=== PATIENT | female | born 1960 | race Caucasian/White ===

== ENCOUNTER 2017-10-28 23:46 | Observation (INO) | payer OTHER ==
--- OUTSIDE RECORDS SUMMARY | 2017-10-28 23:47 | XMS REPORT | Clinical Summary ---
:1960 Author Organization [facility] Address [address] [place] [address] Care Team Providers Name Role Phone Saritha Daniel ACADEMIC ADVISEMENT DIRECTOR-C Primary Care Provider Allergies Active Allergy Reactions Severity Noted Date Comments Codeine 12/15/2016 Current Medications Prescription Sig. Disp. Refills Start Date End Date Status alendronate (FOSAMAX) TAKE ONE (1) TABLET(S) 2 11/18/2016 Active 35 MG tablet BY MOUTH ONCE WEEKLY. ADVAIR DISKUS 100-50 as needed. 2 11/18/2016 Active mcg/dose DISKUS carisoprodol (SOMA) TAKE ONE (1) TABLET(S) 1 11/20/2016 Active 350 MG tablet BY MOUTH TWICE A DAY NEEDED. OSPHENA 60 mg tablet TAKE ONE (1) TABLET(S) 0 11/01/2016 Active BY MOUTH ONCE A DAY WITH FOOD. rosuvastatin (CRESTOR) TAKE ONE (1) TABLET(S) 3 11/07/2016 Active 10 MG tablet BY MOUTH ONCE A DAY AT BEDTIME. traMADol (ULTRAM) 50 TAKE ONE (1) TABLET(S) 1 11/20/2016 Active mg tablet BY MOUTH 3 TO 4 TIMES A DAY NEEDED. zolpidem (AMBIEN) 10 TAKE ONE (1) TABLET(S) 2 11/27/2016 Active mg tablet BY MOUTH ONCE A DAY. doxepin (ZONALON) 5 % 3 09/20/2016 Active cream ZOSTAVAX, PF, 19,400 RECONSTITUTE AND 0 11/08/2016 Active unit/0.65 mL injection ADMINISTER 0.65ML Active Problems Problem Noted Date Spinal muscular atrophy 02/05/2017 Encounters Date Type Specialty Care Team Description 05/28/2017 Telephone Neurology Yaneth Ontiveros MD 04/25/2017 Telephone Neurology Yaneth Ontiveros MD 04/25/2017 Telephone Neurology Yaneth Ontiveros MD 04/24/2017 Telephone Neurology Yaneth Ontiveros MD 04/20/2017 Telephone Neurology Tyree Holder MD 04/19/2017 Prep for Surgery Neurology Tyree Holder MD 04/17/2017 Orders Only Neurology Tyree Holder MD 04/09/2017 Orders Only Neurology Tyree Holder MD 01/15/2017 Telephone Neurology Kat Brown RN 01/15/2017 Telephone Neurology Kat Brown RN 01/15/2017 Orders Only Neurology Kat Brown, LM SMA (spinal muscular atrophy) (Primary Dx) 12/29/2016 Telephone Neurology Yaneth Ontiveros MD 12/15/2016 Lab Lab Yaneth Ontiveros MD 12/15/2016 Office Visit Neurology Yaneth Ontiveros, SMA (spinal muscular MD atrophy) (Primary Dx) after 10/27/2016 Family History Medical History Relation Name Comments Hyperlipidemia Father Hypertension Father Hypertension Mother Relation Name Status Comments Father Mother Social History Tobacco Use Types Packs/Day Years Used Date Never Smoker Smokeless Tobacco: Never Used Alcohol Use Drinks/Week oz/Week Comments No Sex Assigned at Date Recorded Not on file Last Filed Vital Signs Vital Sign Reading Time Taken Blood Pressure 120/78 12/15/2016 3:12 PM CDT Pulse 85 12/15/2016 3:12 PM CDT Temperature - - Respiratory Rate - - Oxygen Saturation - - Inhaled Oxygen Concentration - - Weight 69.6 kg (153 lb 6.4 oz) 12/15/2016 3:12 PM CDT Height 167.6 cm (5' 6") 12/15/2016 3:12 PM CDT Body Mass Index 24.76 12/15/2016 3:12 PM CDT Plan of Treatment Health Maintenance Due Date Last Done Comments PAP SMEAR 1981 COLONOSCOPY 2010 MAMMOGRAM 2010 INFLUENZA VACCINE 02/20/2018 Results Miscellaneous referral test (12/15/2016 4:45 PM) Component Value Ref Range Misc test name GRECIA SMA DIAGNOSTICS TEST Misc test result see note Comment: SMA Diagnostic Test Interpretation:Positive 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 This test result is consistent with a diagnosis of, or a predisposition to develop, spinal muscular atrophy associated with SMN1. Recommendations: This individual's family members are at risk for possessing or inheriting these mutations. Careful reconciliation of this molecular data with this individual's clinical presentation, family history, and other laboratory results, in conjunction with genetic counseling, is highly recommended. Performing site: [facility] [address] [place] [id number] Specimen Performing Laboratory [facility] [email or web address]] LABORATORY [address] [place] [id number] after 10/27/2016 Insurance Payer Benefit Plan / Group Subscriber ID Type Phone Address [facility] xxxxxxxxxxx Commercial MEDICARE MEDICARE PART A AND B xxxxxxxxxx Medicare [place], [place] FOR LIFE xxxxxxxxx Home: [phone] [address] AMENA REA [employer] Party Self 1960 Home: [address] [phone] [address]
[2017-10-29 00:51] LABS: Protime INR 1.01
[2017-10-29 00:55] LABS: Absolute Lymphocytes (CBC) 2.9 K/uL (0.7-4.9); Absolute Monocytes 0.5 K/uL (0.1-1.3); Absolute Neutrophil 4.2 K/uL (1.8-8.0); Basophils % 0.6 % (0-1.3); Hematocrit 38.5 % (36.0-45.0); MCH 31.2 pg (27.0-35.0); MPV 8.2 fL (7.6-11.3)
[2017-10-29 01:04] LABS: Bicarbonate 26 mEq/L (21-31); Glucose Level 103 mg/dL (65-120); Potassium 3.3 mEq/L (3.6-5.0); Sodium Level 139 mEq/L (135-145)
[2017-10-29 01:10] LABS: ALT/SGPT 20 IU/L (10-60); AST/SGOT 20 IU/L (10-42); Albumin 4.1 g/dL (3.2-5.5); Alkaline Phosphatase 76 IU/L (42-121); BUN Blood Urea Nitrogen 13 mg/dL (6-20); Bilirubin Direct 0.1 mg/dL (0-0.2); Bilirubin Total 0.5 mg/dL (0.3-1.2); Creatine Phosphokinase 84 IU/L (22-269); Magnesium 1.9 mg/dL (1.8-2.5)
[2017-10-29 01:25] LABS: CKMB Creatine Kinase MB 2.3 ng/ml (0.3-4.0)
--- NOTE | 2017-10-29 02:01 | EDPHYS ---
Physician Documentation [facility] Name: Amena Smalls Age: 57 yrs Sex: Female : 1960 Arrival Date: 10/28/2017 Time: 23:48 Bed 7 Private MD: ED Physician Sukhjinder Doll HPI: 10/29 00:05 This 57 yrs old Female presents to ER via EMS with complaints of Chest Pain. tw4 00:05 The patient or guardian reports chest pain that is located primarily in the anterior tw4 chest wall. Onset: just prior to arrival. The pain does not radiate. Associated signs and symptoms: The patient has no apparent associated signs or symptoms. The chest pain is described as dull. Duration: The patient or guardian reports a single episode. Severity of pain: At its worst the pain was moderate in the emergency department the pain is unchanged. Historical: - Allergies: 10/28 23:58 Codeine; fc 23:58 Levaquin; fc 23:58 Ibuprofen; fc - Home Meds: 23:58 Advair Diskus 100-50 mcg/dose Inhl dsdv 1 puff 2 times per day [Active]; calcium fc carbonate 500 mg calcium (1,250 mg) Oral tab [Active]; Crestor 10 mg Oral tab 1 tab once daily [Active]; carisoprodol 350 mg Oral tab 1 tab 3 times per day for Muscle Spasm [Active]; fentanyl 25 mcg/hr Topical pt72 1 patch every 72 hours [Active]; Flonase 50 mcg/actuation Nasal spsn 1 spray once daily [Active]; Fosamax 70 mg Oral tab 1 tab once wkly [Active]; Prilosec 40 mg Oral cpDR 1 cap once daily [Active]; tramadol 50 mg Oral tab 1 tab every 6 hours [Active]; zolpidem 10 mg Oral tab 1 tab once daily [Active]; toradol Nasal spray bid prn [Active]; Zofran (as hydrochloride) 4 mg Oral tab 1 tabs as needed [Active]; Fioricet 50-325-40 mg Oral tab 1 tab as needed [Active]; - PMHx: 23:58 Anxiety; Asthma; CVA; GERD; colitis; left hip fx and pinning; spinal muscle atrophy; fc High Cholesterol; Atrial Fib; fracture to sacrum; - PSHx: 23:58 Appendectomy; Cholecystectomy; left hip with left femur neel; fc - Immunization history:: Last tetanus immunization: up to date. - Social history:: Smoking status: Patient/guardian denies using tobacco, Patient/guardian denies using alcohol, street drugs. ROS: 10/29 00:05 Constitutional: Negative for fever, chills, and weight loss, Respiratory: Negative for tw4 shortness of breath, cough, wheezing, and pleuritic chest pain, Abdomen/GI: Negative for abdominal pain, nausea, vomiting, diarrhea, and constipation, Back: Negative for injury and pain, MS/Extremity: Negative for injury and deformity. Cardiovascular: Positive for chest pain, Negative for edema, orthopnea, palpitations, paroxysmal nocturnal dyspnea. Exam: 00:05 Constitutional: This is a well developed, well nourished patient who is awake, alert, tw4 and in no acute distress. Head/Face: Normocephalic, atraumatic. Chest/axilla: Normal chest wall appearance and motion. Nontender with no deformity. No lesions are appreciated. Cardiovascular: Regular rate and rhythm with a normal S1 and S2. No gallops, murmurs, or rubs. Normal PMI, no JVD. No pulse deficits. Respiratory: Lungs have equal breath sounds bilaterally, clear to auscultation and percussion. No rales, rhonchi or wheezes noted. No increased work of breathing, no retractions or nasal flaring. Abdomen/GI: Soft, non-tender, with normal bowel sounds. No distension or tympany. No guarding or rebound. No evidence of tenderness throughout. Back: No spinal tenderness. No costovertebral tenderness. Full range of motion. MS/ Extremity: Pulses equal, no cyanosis. Neurovascular intact. Full, normal range of motion. Neuro: Awake and alert, GCS 15, oriented to person, place, time, and situation. Cranial nerves II-XII grossly intact. Motor strength 5/5 in all extremities. Sensory grossly intact. Cerebellar exam normal. Normal gait. Vital Signs: 10/28 23:45 BP 140 / 84; Pulse 81; Resp 18; Temp 98.1(O); Pulse Ox 99% on R/A; Weight 63.5 kg (R); fc Height 5 ft. 0 in. (152.40 cm) (R); Pain 7/10; 10/29 00:30 BP 127 / 88; Pulse 84; Resp 11; Pulse Ox 99% ; bp 00:45 BP 127 / 94; Pulse 83; Resp 10; Pulse Ox 99% ; bp 01:30 BP 146 / 81; Pulse 88; Resp 16; Pulse Ox 100% ; bp 01:45 BP 129 / 77; Pulse 85; Resp 14; Pulse Ox 100% ; bp 02:00 BP 123 / 72; Pulse 83; Resp 12; Pulse Ox 100% ; bp 02:30 BP 126 / 77; Pulse 86; Resp 12; Pulse Ox 98% ; bp 10/28 23:45 Body Mass Index 27.34 (63.50 kg, 152.40 cm) fc NIH Stroke Scale Scores: 01:43 NIHSS Score: 4 bp MDM: 10/28 23:49 Patient medically screened. tw10/30 00:18 Data reviewed: vital signs, nurses notes. Counseling: I had a detailed discussion with [facility] the patient and/or guardian regarding: the historical points, exam findings, and any diagnostic results supporting the discharge/admit diagnosis. Physician consultation: Messi Narvaez MD regarding admission, patient's condition, and will see patient in ED. ED course: will admit pt for further observation. 10/28 23:54 Order name: Basic Metabolic Panel; Complete Time: :47 10/28 23:54 Order name: BNP; Complete Time: :47 10/28 23:54 Order name: CBC with Diff; Complete Time: 01:47 10/28 23:54 Order name: Ckmb; Complete Time: :47 10/28 23:54 Order name: CPK; Complete Time: :47 10/28 23:54 Order name: LFT's; Complete Time: 01:47 10/28 23:54 Order name: Magnesium; Complete Time: :47 10/28 23:54 Order name: PT-INR; Complete Time: :47 10/28 23:54 Order name: Ptt, Activated; Complete Time: 01:47 10/28 23:54 Order name: Troponin (emerg Dept Use Only); Complete Time: 01:47 10/28 23:54 Order name: XRAY Chest (1 view) 10/29 01:06 Order name: Urine Microscopic Only 4 10/29 01:45 Order name: Urine Dipstick--Ancillary (enter results) em1 10/29 01:46 Order name: Urine Dipstick-Ancillary EDND 10/28 23:54 Order name: EKG; Complete Time: 23:55 [facility] 10/28 23:54 Order name: Cardiac monitoring; Complete Time: 00:01 [facility] 10/28 23:54 Order name: EKG - Nurse/Tech; Complete Time: 00:01 [facility] 10/28 23:54 Order name: IV Saline Lock; Complete Time: 00:29 [facility] 10/28 23:54 Order name: Labs collected and sent; Complete Time: 00:30 [facility] 10/28 23:54 Order name: O2 Per Protocol; Complete Time: 00:01 [facility] 10/28 23:54 Order name: O2 Sat Monitoring; Complete Time: 00:01 [facility] 10/28 23:54 Order name: Urine Dipstick-Ancillary (obtain specimen); Complete Time: 01:42 [facility] 10/29 01:06 Order name: CT Stroke Brain w/o Contrast [facility] 10/29 01:06 Order name: Accucheck; Complete Time: 01:50 [facility] 10/29 01:06 Order name: NPO; Complete Time: 01:50 10/29 01:06 Order name: Stroke Swallow Screen; Complete Time: 01:50 tw4 Administered Medications: 10/29 02:15 Drug: TORadol 30 mg Route: IVP; Site: right forearm; fc 03:01 Follow up: Response: Pain is decreased bp 03:08 Drug: Zofran 4 mg Route: IVP; Site: right forearm; bp 03:08 Follow up: Response: No adverse reaction bp Disposition: 10/29/17 02:00 Hospitalization ordered by Messi Narvaez for Observation. Preliminary diagnosis is Chest pain, unspecified. - Bed requested for Telemetry/MedSurg (observation). - Status is Observation. bp - Condition is Stable. - Problem is new. - Symptoms are unchanged. UTI on Admission? No NIH Stroke Scale - NIH Stroke Score Date: 10/29/2017 Time: 01:43 Total Score = 4 1a. Level of Consciousness (LOC) - 0(Alert) 1b. Level of Consciousness (LOC) (Year \T\ Age) - 0(Both) 1c. LOC Commands (Open \T\ Closes Eyes/Operating Room Tech) - 0(Both) 2. Best Gaze (Lateral Gaze Paresis) - 0(Normal) 3. Visual Field Loss - 0(No visual loss) 4. Facial Palsy - 0(Normal) 5a. Left Arm: Motor (10-second hold) - 1(Drift) 5b. Right Arm: Motor (10-second hold) - 0(No drift) 6a. Left Leg: Motor (5-second hold - always test supine) - 2(Drift, some effort against gravity) 6b. Right Leg: Motor (5-second hold - always test supine) - 0(No drift) 7. Limb Ataxia (finger/nose \T\ heel/medina - test with eyes open) - 1(Present in one limb) 8. Sensory Loss (pinprick arms/legs/face) - 0(Normal) 9. Best Language: Aphasia (description/naming/reading) - 0(No aphasia) 10. Dysarthria (speech clarity - read or repeat words) - 0(Normal) 11. Extinction and Inattention (visual/tactile/auditory/spatial/personal) - 0(No abnormality) Initials: bp Signatures: Dispatcher [employer] Luciana Solorio RN RN kl Chretien, Felicia, RN RN fc Peltier, Brian, RN RN bp Wadley, Terrence, MD MD tw4
--- NOTE | 2017-10-29 02:01 | ER ---
Nurse's Notes [facility] Name: Amena Smalls Age: 57 yrs Sex: Female : 1960 Arrival Date: 10/28/2017 Time: 23:48 Bed 7 Private MD: Diagnosis: Chest pain, unspecified Presentation: 10/28 23:45 Presenting complaint: EMS states: that pt started to have chest pain and shortness of fc breath after being served a warrant by [employer] officer. Transition of care: patient was not received from another setting of care. Onset of symptoms was October 28, 2017 at 23:15. Care prior to arrival: None. 23:45 Method Of Arrival: EMS: [facility] 23:45 Acuity: VAISHNAVI 3 fc Triage Assessment: 10/29 00:31 General: Appears distressed, comfortable, obese, Behavior is cooperative, appropriate bp for age, anxious. Pain: Complains of pain in chest. Historical: - Allergies: 10/28 23:58 Codeine; fc 23:58 Levaquin; fc 23:58 Ibuprofen; fc - Home Meds: 23:58 Advair Diskus 100-50 mcg/dose Inhl dsdv 1 puff 2 times per day [Active]; calcium fc carbonate 500 mg calcium (1,250 mg) Oral tab [Active]; Crestor 10 mg Oral tab 1 tab once daily [Active]; carisoprodol 350 mg Oral tab 1 tab 3 times per day for Muscle Spasm [Active]; fentanyl 25 mcg/hr Topical pt72 1 patch every 72 hours [Active]; Flonase 50 mcg/actuation Nasal spsn 1 spray once daily [Active]; Fosamax 70 mg Oral tab 1 tab once wkly [Active]; Prilosec 40 mg Oral cpDR 1 cap once daily [Active]; tramadol 50 mg Oral tab 1 tab every 6 hours [Active]; zolpidem 10 mg Oral tab 1 tab once daily [Active]; toradol Nasal spray bid prn [Active]; Zofran (as hydrochloride) 4 mg Oral tab 1 tabs as needed [Active]; Fioricet 50-325-40 mg Oral tab 1 tab as needed [Active]; - PMHx: 23:58 Anxiety; Asthma; CVA; GERD; colitis; left hip fx and pinning; spinal muscle atrophy; fc High Cholesterol; Atrial Fib; fracture to sacrum; - PSHx: 23:58 Appendectomy; Cholecystectomy; left hip with left femur neel; fc - Immunization history:: Last tetanus immunization: up to date. - Social history:: Smoking status: Patient/guardian denies using tobacco, Patient/guardian denies using alcohol, street drugs. Screenin:58 Abuse screen: Denies threats or abuse. Denies injuries from another. Nutritional bp screening: No deficits noted. Tuberculosis screening: No symptoms or risk factors identified. Fall Risk None identified. 10/29 01:43 The patient has not been NPO before screening. The patient is currently on the bp following diet: HOME The patient is alert, able to follow commands. The patient does not exhibit slurred or garbled speech The patient is not exhibiting difficulty speaking. The patient does not exhibit difficulty understanding words. The patient is able to swallow own secretions with no drooling or need for suction. Patient tolerated one teaspoon of water. No drooling, immediate coughing, gurgling, or clearing of the throat was noted. The patient tolerated 90mL of water. No drooling, immediate coughing, gurgling, or clearing of the throat was noted. The patient passed the bedside swallow screening. Oral medications may be given as ordered. Contact Physician for further diet orders. Provider notified of bedside swallow screening results: Sukhjinder Doll MD. Assessment: 10/28 23:58 General: Appears in no apparent distress. comfortable, Behavior is cooperative, bp appropriate for age, anxious. Pain: Complains of pain in mid-sternal area Pain does not radiate. Pain began WHILE BEING SERVED WARRANT. Neuro: Level of Consciousness is awake, alert, obeys commands, Oriented to person, place, time, situation, Appropriate for age. Cardiovascular: Reports chest pain. Respiratory: Airway is patent Respiratory effort is even, unlabored, Respiratory pattern is regular, symmetrical. GI: No signs and/or symptoms were reported involving the gastrointestinal system. : No signs and/or symptoms were reported regarding the genitourinary system. EENT: No deficits noted. Derm: No deficits noted. Musculoskeletal: Circulation, motion, and sensation intact. Range of motion: intact in all extremities. 10/29 01:13 Reassessment: PT NOW STATING THAT SHE HAS STARTED HAVING PROGRESSIVE WEAKNESS FOR 1 bp HOUR SINCE ARRIVAL. CODE STROKE INITIATED, PER MD. 01:45 Reassessment: STROKE PROTOCOL COMPLETED, ADMIT PENDING. PT'S NEURO DEFICITS bp INTERMITTENT WHEN OBSERVED BY STAFF. 02:13 Reassessment: Pt complaining of headache and requesting medication. Wanting to use her fc nasal Toradol from home. Discussed with Dr Doll and pt ordered Toradol IV. 02:20 Reassessment: ADMIT MD AT B/S. bp Vital Signs: 10/28 23:45 BP 140 / 84; Pulse 81; Resp 18; Temp 98.1(O); Pulse Ox 99% on R/A; Weight 63.5 kg (R); fc Height 5 ft. 0 in. (152.40 cm) (R); Pain 7/10; 10/29 00:30 BP 127 / 88; Pulse 84; Resp 11; Pulse Ox 99% ; bp 00:45 BP 127 / 94; Pulse 83; Resp 10; Pulse Ox 99% ; bp 01:30 BP 146 / 81; Pulse 88; Resp 16; Pulse Ox 100% ; bp 01:45 BP 129 / 77; Pulse 85; Resp 14; Pulse Ox 100% ; bp 02:00 BP 123 / 72; Pulse 83; Resp 12; Pulse Ox 100% ; bp 02:30 BP 126 / 77; Pulse 86; Resp 12; Pulse Ox 98% ; bp 04 23:45 Body Mass Index 27.34 (63.50 kg, 152.40 cm) fc NIH Stroke Scale Scores: 01:43 NIHSS Score: 4 bp ED Course: 10/28 23:45 Arm band placed on Patient placed in an exam room, on a stretcher. fc 23:48 Patient arrived in ED. bp 23:48 Ed Jovel, RN is Primary Nurse. bp 23:49 Sukhjinder Doll MD is Attending Physician. tw4 23:51 Triage completed. fc 23:58 Patient has correct armband on for positive identification. Bed in low position. Call bp light in reach. Side rails up X2. Adult w/ patient. monitoring engineer on. Pulse ox on. NIBP on. 04 00:06 X-ray completed. Portable x-ray completed in exam room. Patient tolerated procedure kw well. 00:07 XRAY Chest (1 view) In Process Unspecified. EDMS 00:30 Inserted saline lock: 20 gauge in right forearm, using aseptic technique. Blood bp collected. 00:30 Patient maintains SpO2 saturation greater than 95% on room air. bp 01:25 CT Stroke Brain w/o Contrast In Process Unspecified. EDMS 01:45 Hutchinson cath inserted, using sterile technique, 18 Fr., by ED staff, balloon inflated, to bp gravity drainage, urine specimen collected. 01:59 Messi Narvaez MD is Hospitalizing Provider. tw4 03:01 No provider procedures requiring assistance completed. Patient admitted, IV remains in bp place. Administered Medications: 02:15 Drug: TORadol 30 mg Route: IVP; Site: right forearm; fc 03:01 Follow up: Response: Pain is decreased bp 03:08 Drug: Zofran 4 mg Route: IVP; Site: right forearm; bp 03:08 Follow up: Response: No adverse reaction bp Outcome: 02:00 Decision to Hospitalize by Provider. tw4 03:02 Condition: stable bp 03:02 Instructed on the need for admit. 03:15 Admitted to Tele accompanied by tech, via stretcher, room 403, with chart, Report bp called to LAMIN AMATO 03:18 Patient left the ED. bp NIH Stroke Scale - NIH Stroke Score Date: 10/29/2017 Time: 01:43 Total Score = 4 1a. Level of Consciousness (LOC) - 0(Alert) 1b. Level of Consciousness (LOC) (Year \T\ Age) - 0(Both) 1c. LOC Commands (Open \T\ Closes Eyes/Financial Services Consultant) - 0(Both) 2. Best Gaze (Lateral Gaze Paresis) - 0(Normal) 3. Visual Field Loss - 0(No visual loss) 4. Facial Palsy - 0(Normal) 5a. Left Arm: Motor (10-second hold) - 1(Drift) 5b. Right Arm: Motor (10-second hold) - 0(No drift) 6a. Left Leg: Motor (5-second hold - always test supine) - 2(Drift, some effort against gravity) 6b. Right Leg: Motor (5-second hold - always test supine) - 0(No drift) 7. Limb Ataxia (finger/nose \T\ heel/medina - test with eyes open) - 1(Present in one limb) 8. Sensory Loss (pinprick arms/legs/face) - 0(Normal) 9. Best Language: Aphasia (description/naming/reading) - 0(No aphasia) 10. Dysarthria (speech clarity - read or repeat words) - 0(Normal) 11. Extinction and Inattention (visual/tactile/auditory/spatial/personal) - 0(No abnormality) Initials: bp Signatures: Dispatcher [employer] Catrina Hess RN RN Huong Freitas Brian, RN RN Sukhjinder Browning MD MD tw4
[2017-10-29 02:05] LABS: Urine Blood TRACE (NEG); Urine Glucose NEGATIVE (NEG); Urine Protein NEGATIVE (NEG); Urine Specific Gravity 1.015 (1.005-1.030)
[2017-10-29] MEDS ORDERED: KETOROLAC 30 MG/ML INJ ONE (02:29)
[2017-10-29] MEDS ORDERED: ONDANSETRON 4 MG/2 ML VIAL ONE (03:25)
[2017-10-29 03:33] VITALS: O2SAT 98
[2017-10-29] MEDS ORDERED: ONDANSETRON 4 MG/2 ML VIAL IV PRN (03:37)
[2017-10-29] MEDS ORDERED: ACETAMINOPHEN 500 MG TAB PO PRN (03:37)
--- NOTE | 2017-10-29 03:48 | P.HP ---
Certification for Inpatient Patient admitted to: Observation With expected LOS: <2 Midnights Practitioner: I am a practitioner with admitting privileges, knowledge of patient current condition, hospital course, and medical plan of care. 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 She describe the pain as pressure like, radiated to left shoulder, 8/10 of intensity, associated with nausea and SOB. While she was in ED start complaining of left side weakness. Code stroke was called, CT head unremarkable. At my encounter with the patient, she was in non-distress, without SOB, still complaining of chest pain and left side weakness. Allergies codeine Allergy (Verified 08/09/17 22:14) Itching hydrocodone Allergy (Verified 08/09/17 22:14) Nausea/Vomiting ibuprofen Adverse Reaction (Verified 08/09/17 22:14) Unknown levofloxacin [From Levaquin] Adverse Reaction (Verified 08/09/17 22:14) "makes me feel bad", dizzy Home Medications: Omeprazole [Prilosec] 20 mg PO DAILY 02/17/13 Zolpidem Tartrate [Ambien*] 10 mg PO BEDTIME 02/17/13 Fluticasone/Salmeterol [Advair 100/50 Diskus*] 1 puff IH ONCE PRN 07/29/14 Ospemifene [Osphena] 60 mg PO DAILY 07/29/14 traMADol HCL [Ultram*] 50 mg PO DAILY 07/29/14 Fentanyl Patch [Duragesic Patch*] 25 mcg TD EVERY 3RD DAY 08/04/17 Polyethylene Glycol 3350 [Miralax] 119 gm PO DAILY 08/04/17 Simethicone 80 mg PO DAILY 08/04/17 Carisoprodol [Soma*] 350 mg PO BEDTIME #0 tab 08/09/17 traMADol HCL [Ultram*] 50 mg PO Q4HP PRN #60 tab 08/18/17 - Past Medical/Surgical History Diabetic: No -: Spinal muscular atrophy -: Asthma -: Hyperlipidemia -: Colitis -: Left hip fracture -: Left PCL tear and tibia fx -: Sacral fracture -: section -: Appendectomy -: Left hip fracture 2013/pinning -: Laparoscopic cholecystectomy - Family History Father -: Hypertension, Other (see notes) Notes: pacemaker, high cholesterol Mother -: Hypertension, Other (see notes) Notes: high cholesterol, dementia - Social History Alcohol use: No CD- Drugs: No Caffeine use: Yes Place of Residence: Home Review of Systems 10-point ROS is otherwise unremarkable Physical Examination - Vital Signs Blood Pressure: 126/77 Pulse: 86 Respirations: 12 - Physical Exam General: Alert, In no apparent distress HEENT: Atraumatic, PERRLA, Mucous membr. moist/pink, EOMI, Sclerae nonicteric Neck: Supple, 2+ carotid pulse no bruit, No LAD, Without JVD or thyroid abnormality Respiratory: Clear to auscultation bilaterally, Normal air movement Cardiovascular: Regular rate/rhythm, Normal S1 S2 Gastrointestinal: Normal bowel sounds, No tenderness Musculoskeletal: No tenderness Integumentary: No rashes Neurological: Normal speech, Normal tone, Normal affect, Abnormal strength ( left lower extremity 2/5 right LE 3/5, left upper extremity 1/5 right upper extremity 5/5) Lymphatics: No axilla or inguinal lymphadenopathy - Studies Laboratory Data (last 24 hrs) 10/29/17 00:20: PT 11.9, INR 1.01, APTT 27.3 10/29/17 00:20: WBC 7.8, Hgb 12.8, Hct 38.5, Plt Count 237 10/29/17 00:20: B-Natriuretic Peptide 32 10/29/17 00:20: Sodium 139, Potassium 3.3 L, BUN 13, Creatinine 0.47, Glucose 103, Magnesium 1.9, Total Bilirubin 0.5, AST 20, ALT 20, Alkaline Phosphatase 76 Assessment and Plan - Problems (Diagnosis) (1) Left-sided weakness Onset Date: 04/05/16 Current Visit: No Status: Acute (2) Spinal muscular atrophy Onset Date: 08/06/17 Current Visit: No Status: Acute (3) Chest pain Current Visit: Yes Status: Acute Qualifiers: Chest pain type: unspecified Qualified Code(s): R07.9 - Chest pain, unspecified - Plan The patient will be admitted to the hospital due to chest pain. At the moment EKG shows not acute ST-T abnormalities, trop I negative. Will repeat serial cardiac enzymes and EKG. Regarding left side weakness, will order brain MRI to R /O CVA, consult Dr Case. - Advance Directives Does patient have a Living Will: No Does patient have a Durable POA for Healthcare: Yes
[2017-10-29 04:41] VITALS: BMI 23.3
[2017-10-29] MEDS ORDERED: POTASSIUM 25 MEQ EFFERV TAB PO ONE (05:11)
--- NOTE | 2017-10-29 06:28 | EKG ---
Test Date: 2017-10-28 Test Time: 23:50:35 Back Roll Lathe Operator: MANE MEASUREMENT RESULTS: Intervals: Rate: 79 NE: 140 QRSD: 88 QT: 390 QTc: 447 [place]: P: 27 NE: 140 QRS: -9 T: 32 INTERPRETIVE STATEMENTS: Normal sinus rhythm Low voltage QRS Incomplete right bundle branch block Abnormal ECG Compared to ECG 04/04/2016 21:40:16 no significant change from previous ECG Electronically Signed On 10-29-17 06:28:00 CDT by Matheus Mcgrath
--- NOTE | 2017-10-29 08:17 | RAD REPORT ---
EXAM DESCRIPTION: CT - Ct Stroke Brain Wo Cont - 10/29/2017 6:53 am CLINICAL HISTORY: Hemiplegia. laterally not specified COMPARISON: September 2017 TECHNIQUE: Computed axial tomography of the head was obtained. IV contrast was not requested. A prel iminary report was generated by [employer] and reviewed prior to this dictation. All CT scans are performed using dose optimization technique as appropriate and may include automated exposure control or mA/KV adjustment according to patient size. FINDINGS: An intracranial bleed is not seen . The ventricles are normal in caliber. No extra-axial fluid collection is noted. Mild ethmoid sinusitis is present. Mastoids are clear IMPRESSION: No acute intracranial abnormality is seen. If patient's symptoms persist MRI of the bra in would be recommended. A signed report by was given 1:31 a.m. October 29, 2017
--- NOTE | 2017-10-29 08:50 | RAD REPORT ---
EXAM DESCRIPTION: Nohemy Single View10/29/2017 12:09 am CLINICAL HISTORY: Chest pain COMPARISON: 2016 FINDINGS: The lungs appear clear of acute infiltrate. The heart is normal size IMPRESSION: No acute abnormalities displayed
[2017-10-29] MEDS ORDERED: ASPIRIN 81 MG CHEWABLE TABLET PO SCH (09:00)
[2017-10-29] MEDS ORDERED: ENOXAPARIN 40 MG/0.4 ML SQ SCH (09:00)
--- NOTE | 2017-10-29 09:32 | RAD REPORT ---
EXAM DESCRIPTION: MRI - Brain W/Wo Cont - 10/29/2017 8:20 am CLINICAL HISTORY: Left-sided numbness and weakness COMPARISON: October 29, [address] TECHNIQUE: Axial, sagittal, and coronal magnetic images of the brain were obtained. 14 cc MultiHance was administered intravenously. FINDINGS: A few punctate areas of increased signal are present within deep white matter bilaterally. Diffusion-weighted/ADC mapping does not reveal evidence of acute infarction. The ventricles are normal caliber. An extra-axial fluid collection is not present Mild mucoperiosteal thickening involves the ethmoid sinus. Mild signal within the left mastoid is pre sent. IMPRESSION: A few punctate areas of increased signal within the deep white matter bilaterally maybe related to ischemic changes secondary to small vessel disease. Migraines can also result in this appe arance.
--- NOTE | 2017-10-29 12:56 | EKG ---
Test Date: 2017-10-29 Test Time: 01:14:42 Box Puller: TROY MEASUREMENT RESULTS: Intervals: Rate: 85 TX: 150 QRSD: 80 QT: 366 QTc: 435 [place]: P: 42 TX: 150 QRS: -8 T: -4 INTERPRETIVE STATEMENTS: Normal sinus rhythm Incomplete right bundle branch block Low voltage QRS Abnormal ECG Compared to ECG 10/28/2017 23:50:35 no significant change from previous ECG Electronically Signed On 10-29-17 12:55:49 CDT by Matheus Mcgrath
[2017-10-29] MEDS ORDERED: KETOROLAC 30 MG/ML INJ IV PRN (14:17)
[2017-10-29] MEDS ORDERED: PANTOPRAZOLE 40MG TABLET PO SCH (15:45)
[2017-10-29 16:40] VITALS: BP 103/76; TEMP 98
[2017-10-30] MEDS ORDERED: PANTOPRAZOLE 40MG TABLET PO SCH ×2 (16:30)
== END 2017-10-29 17:45 | disposition home health service (06) ==
LOC: ER 23:46 → ERHOLD 10-29 02:06 → 4TH 10-29 03:03
PROVIDERS: ADMIT Internal Medicine; ATTEND Family Medicine
DX: R07.9 Chest pain, unspecified (principal); G12.9 Spinal muscular atrophy, unspecified; E78.5 Hyperlipidemia, unspecified
CPT/HCPCS: 36415; 51702; 70450; 70553; 71045; 80048; 80076; 81003; 82550; 82553; 82962; 83735; 83880; 84132; 84484; 85025; 85610; 85730; 93005; 96374; 96375; 97163; 99285; A9577; G0378; J1650; J2405

== ENCOUNTER 2018-08-09 13:19 | Emergency (ER) | payer OTHER ==
--- OUTSIDE RECORDS SUMMARY | 2018-08-09 13:21 | XMS REPORT | Clinical Summary ---
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 ADVAIR DISKUS 100-50 as needed. 2 11/18/2016 Active mcg/dose DISKUS carisoprodol (SOMA) TAKE ONE (1) 1 11/20/2016 Active 350 MG tablet TABLET(S) BY MOUTH TWICE A DAY NEEDED. OSPHENA 60 mg tablet TAKE ONE (1) 0 11/01/2016 Active TABLET(S) BY MOUTH ONCE A DAY WITH FOOD. rosuvastatin TAKE ONE (1) 3 11/07/2016 Active (CRESTOR) 10 MG TABLET(S) BY MOUTH tablet ONCE A DAY AT BEDTIME. traMADol (ULTRAM) 50 TAKE ONE (1) 1 11/20/2016 Active mg tablet TABLET(S) BY MOUTH 3 TO 4 TIMES A DAY NEEDED. zolpidem (AMBIEN) 10 TAKE ONE (1) 2 11/27/2016 Active mg tablet TABLET(S) BY MOUTH ONCE A DAY. doxepin (ZONALON) 5 3 09/20/2016 Active % cream ZOSTAVAX, PF, 19,400 RECONSTITUTE AND 0 11/08/2016 Active unit/0.65 mL ADMINISTER 0.65ML injection Active Problems Problem Noted Date Spinal muscular atrophy 02/05/2017 Family History Medical History Relation Name Comments Hyperlipidemia Father Hypertension Father Hypertension Mother Relation Name Status Comments Father Mother Social History Tobacco Use Types Packs/Day Years Used Date Never Smoker Smokeless Tobacco: Never Used Alcohol Use Drinks/Week oz/Week Comments No Sex Assigned at Date Recorded Not on file Job Start Date Occupation Industry Not on file Not on file Not on file Travel History Travel Start Travel End No recent travel history available. Last Filed Vital Signs Not on file Plan of Treatment Health Maintenance Due Date Last Done Comments CERVICAL CANCER SCREENING 1981 BREAST CANCER SCREENING 2010 COLON CANCER SCREENING 2010 SHINGLES VACCINES (1 of 2) 2010 INFLUENZA VACCINE 02/20/2018 Results Not on fileafter 08/08/2017 Insurance Payer Benefit Plan / Group Subscriber ID Type Phone Address [facility] [employer] FIRST xxxxxxxxxxx Commercial MEDICARE MEDICARE PART A AND B xxxxxxxxxx Medicare [place], [place] FOR LIFE xxxxxxxxx Advance Directives Patient has advance care planning documents on file. For more information, please contact:[place] [address]
--- OUTSIDE RECORDS SUMMARY | 2018-08-09 13:22 | XMS REPORT ---
:1960 [facility] Address [address] [place] [address] Dr. [place] [address] [place] [id number] Care Team Providers Name Role Phone Unavailable Unavailable Unavailable Problems This patient has no known problems. Allergies, Adverse Reactions, Alerts This patient has no known allergies or adverse reactions. Medications This patient has no known medications.
--- OUTSIDE RECORDS SUMMARY | 2018-08-09 13:22 | XMS REPORT | Continuity of Care Document ---
:1960 Author Organization Interface Problems Problem Status Onset Classification Date Comments Source Date Reported Encounter for Active Finding 10/29/[address] [facility] [place] Intractable pain Active Finding 10/29/[address] [facility] [place] Spinal muscular Active Finding 10/29/[address] [facility] atrophy [facility]18 [facility] [place] Sacral fracture, Active Finding 10/29/[address] [facility] [place] Left-sided weakness Active Finding 10/29/[address] [facility] [place] Colitis Active Finding 10/29/[address] [facility] [place] Bloody stools Active Finding 10/29/[address] [facility] [place] Intertrochanteric Inactive Finding 10/29/[address] [facility] fracture [facility] [place] Chest pain Active Finding 10/29/[address] [facility] [place] LUMBAR PAIN MARIA EUGENIA MURRAY Active [facility] WILL FAX [facility] Medications Medication Details Route Status Patient Ordering Order Source Instructions Provider Date Alendronate Q7D Active [facility] [place] Butalbital/Asp DAILY PRN For Active [facility] irin/Caffeine Headache 018 [facility] [place] Calcium DAILY Active [facility] Carbonate [facility]18 [facility] [place] Rosuvastatin DAILY Active [facility] [place] Fluticasone DAILY Active [facility] [place] Ondansetron DAILY Active [facility] Hcl [facility] [place] Carisoprodol TWICE DAILY Active [facility] [place] Tramadol Hcl TWICE DAILY Active [facility] [place] Colestipol Hcl DAILY Active [facility]18 [facility] [place] Tramadol Hcl EVERY 4 HOURS Active [place] [facility] NEEDED PRN 018 [facility] For Pain [place] Carisoprodol AT BEDTIME Active [place] [facility] [place] Polyethylene DAILY PRN For Active [facility] Glycol 3350 Constipation 018 [facility] [place] Carisoprodol THREE TIMES A Active [facility] DAY 017 [facility] [place] Fluticasone/Sa DAILY Active [facility] lmeterol 015 [facility] [place] Zolpidem AT BEDTIME Active [facility] Tartrate 013 [facility] [place] Omeprazole DAILY Active [facility]13 [facility] [place] Allergies, Adverse Reactions, Alerts Substance Category Reaction Severity Reaction Status Date Comments Source type Reported codeine Itching Allergy to Active [facility] Substance 8 [facility] [place] hydrocodone Nausea/Vo Allergy to Active [facility] miting Substance 8 [facility] [place] ibuprofen Unknown Propensity Active [facility] to adverse 8 [facility] reactions [place] levofloxacin "makes me Propensity Active [facility] feel to adverse 8 [facility] bad", reactions [facility] Immunizations Immunization Date Given Site Status Last Comments Source Updated Influenza Adult 05/05/2015 completed [facility] [place] Results Order Name Results Value Reference Date Interpretation Comments Source Range Laboratory Troponin I null 10/29 [facility] [address] Studies [facility] [place] [facility] Potassium 3.9 mEq/L 3.6 - 5.0 10/29 [facility] [address] Studies Level /2017 [facility] [place] Laboratory Urine pH 6.0 10/[address] [facility] [address] Studies [facility] [place] [facility] Urine Total Urine Total 10/29 [facility] [address] Studies Protein Protein /2017 [facility] [place] Laboratory Urine 1.015 10/[address] [facility] [address] Studies Specific /2017 [facility] Waterproof [place] Laboratory Urine Nitrite Urine 10/29 [facility] [address] Studies Nitrite /2017 [facility] [place] Laboratory Urine Urine 10/29 [facility] [address] Studies Leukocyte Leukocyte [facility] Esterase Esterase [place] Laboratory Urine Ketones Urine 10/29 St[facility] Studies Ketones [facility] [place] [facility] Urine Glucose Urine 10/29 St[facility] Studies Glucose [facility] [place] [facility] Urine Blood Urine Blood 10/29 St[facility] Studies [facility] [place] [facility] Creatine 2.3 ng/ml 0.3 - 4.0 10/29 St[facility] Studies Kinase MB [facility] [place] [facility] B-Type 32 pg/ml 10/29 St[facility] Studies Natriuretic [facility] Peptide [place] Laboratory Rapid null 10/29 . Studies Troponin I [facility] [place] [facility] Total 0.5 mg/dL 0.3 - 1.2 10/29 St[facility] Studies Bilirubin [facility] [place] [facility] Serum Total 7.0 g/dL 6.0 - 8.3 10/29 St[facility] Studies Protein [facility] [place] Laboratory Magnesium 1.9 mg/dL 1.8 - 2.5 10/29 St[facility] Studies Level /2017 [facility] [place] Laboratory Globulin 2.9 g/dL 2.3 - 3.5 10/29 St[facility] Studies [facility] [place] Laboratory Estimat null 90 10/29 [facility]. Studies Glomerular [facility] Filtration [place] Rate Laboratory Direct 0.1 mg/dL 0 - 0.2 10/29 [facility] [address] Studies Bilirubin [facility] [place] Laboratory Creatinine 0.47 mg/dL 0.44 - 10/29 [facility] [address] Studies 1.00 [facility] [place] Laboratory Creatine 84 IU/L 22 - 269 10/29 St[facility] Studies Kinase [facility] [place] Laboratory Blood Urea 13 mg/dL 6 - 20 10/29 [facility] [address] Studies Nitrogen [facility] [place] Laboratory Aspartate 20 IU/L 10 - 42 10/29 [facility]. Studies Amino Transf [facility] (AST/SGOT) [place] Laboratory Alkaline 76 IU/L 42 - 121 10/[address] [facility] [address] Studies Phosphatase [facility] [place] Laboratory Albumin/Globu 1.4 1.1 - 1.8 10/29 St[facility] Studies steph Ratio [facility] [place] Laboratory Albumin 4.1 g/dL 3.2 - 5.5 04 [facility] [address] Studies /2017 [facility] [place] Laboratory Alanine 20 IU/L 10 - 60 10/29 [facility]. Studies Aminotransfer /2017 [facility] ase [place] (ALT/SGPT) Laboratory Sodium Level 139 mEq/L 135 - 145 10/29 St. Studies /2017 [facility] [place] Laboratory Glucose Level 103 mg/dL 65 - 120 10/29 [facility] [address] Studies /2017 [facility] [place] Laboratory Chloride 104 mEq/L 101 - 111 10/29 [facility] [address] Studies Level /2017 [facility] [place] Laboratory Carbon 26 mEq/L 21 - 31 10/29 [facility]. Studies Dioxide Level /2017 [facility] [place] Laboratory Calcium Level 8.9 mg/dL 8.5 - 10.5 10/29 [facility] [address] Studies /2017 [facility] [place] Laboratory White Blood 7.8 K/uL 4.3 - 10.9 10/29 [facility]. Studies Count /2017 [facility] [place] Laboratory Red Cell 13.5 % 12.1 - 10/29 [facility]. Studies Distribution 15.2 [facility] Width [place] Laboratory Red Blood 4.10 M/uL 3.86 - 04 [facility]. Studies Count 4.86 /2017 [facility] [place] Laboratory Platelet 237 K/uL 152 - 406 10/29 [facility]. Studies Count /2017 [facility] [place] Laboratory Neutrophils % 53.4 % 41.7 - 10/29 [facility] [address] Studies 73.7 /2017 [facility] [place] Laboratory Monocytes % 6.0 % 3.3 - 12.3 10/29 [facility] [address] Studies /2017 [facility] [place] Laboratory Mean Platelet 8.2 fL 7.6 - 11.3 10/29 [facility]. Studies Volume /2017 [facility] [place] Laboratory Mean 94.0 fL 80 - 100 10/29 [facility]. Studies Corpuscular /2017 [facility] Volume [place] Laboratory Mean 33.2 g/dL 32.0 - 10/29 [facility]. Studies Corpuscular 36.0 [facility] Hemoglobin [place] Concent Laboratory Mean 31.2 pg 27.0 - 10/29 [facility]. Studies Corpuscular 35.0 [facility] Hemoglobin [place] Laboratory Lymphocytes % 37.0 % 15.3 - 04/ [facility]. Studies 44.8 /2017 [facility] [place] Laboratory Hemoglobin 12.8 g/dL 12.0 - 04 [facility]. Studies 15.0 /2017 [facility] [place] Laboratory Hematocrit 38.5 % 36.0 - 04 [facility]. Studies 45.0 /2017 [facility] [place] Laboratory Eosinophils % 3.0 % 0 - 4.4 10/29 [facility] [address] Studies /2017 [facility] [place] Laboratory Basophils % 0.6 % 0 - 1.3 10/29 [facility]. Studies /2017 [facility] [place] Laboratory Absolute 4.2 K/uL 1.8 - 8.0 10/29 [facility]. Studies Neutrophil /2017 [facility] [place] Laboratory Absolute 0.5 K/uL 0.1 - 1.3 10/29 [facility]. Studies Monocytes /2017 [facility] (CBC) [place] Laboratory Absolute 2.9 K/uL 0.7 - 4.9 10/29 [facility]. Studies Lymphocytes /2017 [facility] (CBC) [place] Laboratory Absolute 0.2 K/uL 0 - 0.5 10/29 [facility]. Studies Eosinophils /2017 [facility] (CBC) [place] Laboratory Absolute 0.0 K/uL 0 - 0.5 10/29 [facility]. Studies Basophils /2017 [facility] (CBC) [place] Laboratory Prothrombin 11.9 9.5 - 12.5 10/29 [facility]. Studies Time SECONDS /2017 [facility] [place] Laboratory INR 1.01 10/29 [facility]. Studies International /2017 [facility] Normalized [place] Ratio Laboratory Activated 27.3 24.3 - 10/29 [facility]. Studies Partial SECONDS 36.9 /2017 [facility] Thromboplast [place] Time Laboratory Urine Random 8 mg/dl 10/12 [facility] Studies Total Protein /2017 [facility] [place] [facility] Urine Urine 09/23 [facility]. Studies /2017 [facility] Test Test [place] Laboratory Urine WBC Urine WBC 09/23 [facility]. Studies /2017 [facility] [place] Laboratory Urine null 09/23 [facility]. Studies Urothelial /2017 [facility] Cells [place] Laboratory Urine null 09/23 [facility]. Studies Squamous /2017 [facility] Epithelial [place] Cells Laboratory Urine RBC null 09/[address] [facility] [address] Studies [facility] [place] Laboratory Urine Culture Urine 09/23 [facility] [address] Studies Reflexed Culture [facility] Reflexed [place] Laboratory Urine null 09/[address] [facility] [address] Studies Bacteria [facility] [place] Laboratory Prealbumin 18.1 mg/dl 18 - 38 08/16 [facility] [address] Studies [facility] [place] Laboratory Urine 0.2 mg/dL 08/09 [facility] [address] Studies Urobilinogen [facility] [place] Laboratory Urine Color Urine Color 08/09 [facility] [address] Studies [facility] [place] Laboratory Urine Urine 08/09 [facility] [address] Studies Bilirubin Bilirubin [facility] [place] Laboratory Urine Urine 08/09 [facility] [address] Studies Appearance Appearance [facility] [place] Vital Signs Vital Sign Value Date Comments Source Temperature Oral (F) 98.0 F 10/29/[address] [facility] [place] Heart Rate 76 10/29/[address] [facility] [place] Respitory Rate 18 10/29/[address] [facility] [place] Systolic (mm Hg) 103 10/29/[address] [facility] [place] Diastolic (mm Hg) 76 10/29/[address] [facility] [place] Height 65 10/29/[address] [facility] [place] Weight 140 10/29/[address] [facility] [place] Encounters Location Location Encounter Encounter Reason Attending ADM DC Status Source Details Type Number For Provider Date Date Visit [facility] Departed [id number] 08/01 08/[facility] [place] [facility] Discharged [id number] 08/04 08/[facility] [place] [facility] Discharged [id number] 08/09 08/[address] [facility] [place] [facility] Registered [id number] 09[facility] [facility] Ref[facility]2017 [facility] [place] [facility] Registered [id number] 09/18 [facility]2018 [facility] [place] [facility] Departed [id number] 09/23 09/[address] [facility] [place] [facility] Reg[facility] [id number] 10[facility] [facility] [place] [facility] Dis[facility] [id number] 10/29 10/[address] [facility] [place] Outpatient [id number] [facility]27 [facility] Procedures Procedure Code Date Perfomer Comments Source Ct Stroke Brain [id number] [facility] Cont 8 [place] Chest Single [id number] [facility] View [facility] [place] [id number] [facility] [place] Adair Count [id number] [facility] [place] Head Brain Wo [id number] [facility] Cont [facility] [place] [id number] [facility] [place] Adair Count [id number] [facility] [place]
[2018-08-09] MEDS ORDERED: NA CHLORIDE 0.9% 1,000 ML ONE (14:18)
[2018-08-09] MEDS ORDERED: ONDANSETRON 4 MG/2 ML VIAL ONE (14:18)
[2018-08-09] MEDS ORDERED: DIPHENHYDRAMINE 50 MG/ML VIAL ONE (14:23)
[2018-08-09] MEDS ORDERED: METOCLOPRAMIDE 10 MG/2mL INJ ONE ×2 (14:23→19:06)
[2018-08-09] MEDS ORDERED: PROMETHAZINE 25 MG/ML VIAL ONE ×3 (14:25→17:29)
[2018-08-09 15:08] LABS: ALT/SGPT 22 U/L (12-78); AST/SGOT 13 U/L (15-37); Albumin 4.2 g/dL (3.4-5.0); Alkaline Phosphatase 66 U/L (45-117); BUN Blood Urea Nitrogen 13 mg/dL (7-18); Bicarbonate 29 mmol/L (21-32); Bilirubin Direct 0.2 mg/dL (0-0.2); Bilirubin Total 0.9 mg/dL (0.2-1.0); Glucose Level 106 mg/dL (74-106); Lipase 112 U/L (73-393); Potassium 3.4 mmol/L (3.5-5.1); Protein, Total 7.7 g/dL (6.4-8.2); Sodium Level 141 mmol/L (136-145)
[2018-08-09 15:59] LABS: Urine Bacteria <20 /HPF (<20); Urine Culture Reflex Order NOT NEEDED; Urine Mucus 1+ /HPF (NONE SEEN); Urine RBC <5 /HPF (NONE SEEN)
[2018-08-09 16:22] LABS: Urine Blood TRACE (NEG); Urine Glucose NEGATIVE (NEG); Urine Protein NEGATIVE (NEG); Urine Specific Gravity 1.015 (1.005-1.030); Urine pH 8.5 (5.0-7.0)
[2018-08-09] MEDS ORDERED: DICYCLOMINE HCL 10 MG CAP ONE (17:29)
--- NOTE | 2018-08-09 18:28 | RAD REPORT ---
EXAM DESCRIPTION: CT - Abdomen Pelvis W Contrast - 08/09/2018 6:08 pm CLINICAL HISTORY: Abdominal pain, vomiting, diarrhea, history of colitis, history of prior left hip fracture, prior appendectomy and cholecystectomy COMPARISON: CT study February 2017 TECHNIQUE: Biphasic, helical CT imaging of the abdomen and pelvis was performed following 100 ml non -ionic IV contrast. Oral contrast was given. All CT scans are performed using dose optimization technique as appropriate and may include automated exposure control or mA/KV adjustment according to patient size. FINDINGS: No suspicious findings in the lung bases. The liver, spleen, and pancreas show no suspicious findings. Cholecystectomy clips are present. No bi liary tree dilatation. Symmetric renal function is seen with no hydronephrosis or suspicious renal mass. No pyelonephritis o r acute parenchymal process. No bladder abnormalities. No adrenal abnormalities. No uterine or ovaria n suspicious finding. No gastric dilatation or wall thickening. Small bowel loops are not dilated. There is a mild prominen ce of the small bowel terry with a large amount of fluid scattered throughout the small bowel. This i s consistent with an enteritis. Colon is mostly decompressed. No acute colon process is identifiable. No free air, free fluid or inflammatory stranding. No hernia, mass or bulky lymphadenopathy. No acute bone finding. No acute vascular process. Patient has significant atrophy of the iliopsoas musculature, paraspinal musculature and to a lesser degree gluteal musculature. There is an overall volume loss in the musculature surrounding each pelvi s. Left hip fracture hardware in place. These are all known findings. IMPRESSION: Prominent small bowel pattern consistent with nonspecific enteritis. No obstruction, free air or surgically emergent finding.
[2018-08-09] MEDS ORDERED: NA CHLORIDE 0.9% 250 ML ONE (19:06)
[2018-08-09] MEDS ORDERED: LIDOCAINE VISCOUS 2% SOLN 15 ML UDC ONE (20:02)
[2018-08-09] MEDS ORDERED: MAGNE/ALUM HYDROXD 30 ML UCUP ONE (20:02)
--- NOTE | 2018-08-09 20:50 | ER ---
Nurse's Notes [facility] Name: Amena Smalls Age: 58 yrs Sex: Female : 1960 Arrival Date: 08/09/2018 Time: 13:22 Bed 26 Private MD: Diagnosis: Vomiting;Diarrhea, unspecified Presentation: 08/09 13:24 Presenting complaint: Patient states: vomiting and diarrhea since 0300 today. sv Transition of care: patient was not received from another setting of care. Onset of symptoms was August 09, 2018. Care prior to arrival: None. 13:24 Method Of Arrival: Ambulatory sv 13:24 Acuity: VAISHNAVI 3 sv 21:20 Risk Assessment: Do you want to hurt yourself or someone else? Patient reports no mg2 desire to harm self or others. Initial Sepsis Screen: Does the patient meet any 2 criteria? No. Patient's initial sepsis screen is negative. Does the patient have a suspected source of infection? No. Patient's initial sepsis screen is negative. Triage Assessment: 18:00 General: Appears in no apparent distress. comfortable, Behavior is calm, cooperative. mg2 18:00 GI: Reports lower abdominal pain, upper abdominal pain, nausea, vomiting. mg2 Historical: - Allergies: 13:25 Codeine; sv 13:25 Ibuprofen; sv 13:25 Levaquin; sv - PMHx: 13:25 Anxiety; Asthma; Atrial Fib; Colitis; CVA; fracture to sacrum; GERD; High Cholesterol; sv left hip fx and pinning; spinal muscle atrophy; spinal muscle atrophy, Left hip fracture and pinning, colitis, hypercholesteremia; - PSHx: 13:25 Appendectomy; Cholecystectomy; left hip with left femur neel; sv - Immunization history:: Flu vaccine is up to date. - Social history:: Smoking status: Patient/guardian denies using tobacco. - Ebola Screening: : No symptoms or risks identified at this time. Screenin:06 Abuse screen: Denies threats or abuse. Nutritional screening: No deficits noted. tl3 Tuberculosis screening: No symptoms or risk factors identified. Fall Risk Secondary diagnosis (15 points) impaired mobility. Assessment: 16:48 Reassessment: Patient appears in no apparent distress at this time. Patient and/or mg2 family updated on plan of care and expected duration. Pain level reassessed. Patient is alert, oriented x 3, equal unlabored respirations, skin warm/dry/pink. 17:24 Reassessment: Patient and/or family updated on plan of care and expected duration. Pain tl3 level reassessed. Patient is alert, oriented x 3, equal unlabored respirations, skin warm/dry/pink. pt complains of pain returning to abdomen area, has been to the bathroom twice for diarrhea. Pain: Complains of pain in left upper quadrant and right upper quadrant. GI: Abdomen is round. : Urine is clear. EENT: No signs and/or symptoms were reported regarding the EENT system. Derm: No signs and/or symptoms reported regarding the dermatologic system. Musculoskeletal: No signs and/or symptoms reported regarding the musculoskeletal system. 18:06 Reassessment: No changes from previously documented assessment. Patient and/or family tl3 updated on plan of care and expected duration. Pain level reassessed. Patient is alert, oriented x 3, equal unlabored respirations, skin warm/dry/pink. pt to ct. 19:30 Reassessment: Patient appears in no apparent distress at this time. No changes from tl3 previously documented assessment. Patient and/or family updated on plan of care and expected duration. Pain level reassessed. Patient is alert, oriented x 3, equal unlabored respirations, skin warm/dry/pink. 20:02 Reassessment: Patient appears in no apparent distress at this time. No changes from tl3 previously documented assessment. Patient and/or family updated on plan of care and expected duration. Pain level reassessed. Patient is alert, oriented x 3, equal unlabored respirations, skin warm/dry/pink. Kevin at bedside discussing POC. 21:18 Reassessment: Patient appears in no apparent distress at this time. Patient and/or mg2 family updated on plan of care and expected duration. Pain level reassessed. patient improved. Vital Signs: 13:25 BP 127 / 83; Pulse 94; Resp 18; Temp 98.3; Pulse Ox 99% ; Weight 65.77 kg; Height 5 ft. sv 5 in. (165.10 cm); Pain 0/10; 16:48 BP 123 / 76; Pulse 100; Resp 18; Pulse Ox 100% on R/A; Pain 0/10; mg2 17:24 BP 130 / 78; Pulse 94; Resp 18; Pulse Ox 100% on R/A; tl3 20:02 BP 140 / 83; Pulse 99; Resp 18; Pulse Ox 100% on R/A; tl3 21:19 BP 135 / 78; Pulse 90; Resp 18; Pulse Ox 100% on R/A; Pain 0/10; mg2 13:25 Body Mass Index 24.13 (65.77 kg, 165.10 cm) sv ED Course: 13:22 Patient arrived in ED. mr 13:25 Triage completed. sv 13:26 Arm band placed on. sv 13:43 Kevin Moise PA is PHCP. jmm 13:43 Philippe Michaud MD is Attending Physician. jmm 14:01 Jeremy Escobar, LM is Primary Nurse. ja1 14:15 Missed attempt(s): 20 gauge in left antecubital area. Bleeding controlled, band aid jp3 applied, catheter tip intact. 14:20 Initial lab(s) drawn, by me, sent to lab. Inserted saline lock: 22 gauge in right jp3 antecubital area, using aseptic technique. Blood collected. 14:20 Patient maintains SpO2 saturation greater than 95% on room air. jp3 14:32 Bed in low position. Call light in reach. Side rails up X 1. Side rails up X2. Warm jp3 blanket given. Pillow given. Pulse ox on. NIBP on. 15:25 Urine collected: clean catch specimen, clear, mik colored, Amount Voided: 60mL. mg2 15:55 Urine Microscopic Only Sent. mg2 15:55 Urine Culture Sent. mg2 15:55 CBC with Automated Diff Sent. mg2 18:00 Patient moved to [place] via stretcher. ka 18:06 CT completed. Patient tolerated procedure well. Patient moved back from [place]. ka 18:06 No provider procedures requiring assistance completed. tl3 18:08 CT Abd/Pelvis - W/Contrast In Process Unspecified. EDMS 21:19 IV discontinued, intact, bleeding controlled, No redness/swelling at site. Pressure mg2 dressing applied. Administered Medications: 14:25 Drug: Phenergan 12.5 mg Route: IVP; Infused Over: 5 mins; Site: right antecubital; tl3 17:26 Follow up: Response: No adverse reaction tl3 14:35 Drug: NS 0.9% 1000 ml Route: IV; Rate: 1 bolus; Site: right antecubital; Delivery: tl3 Primary tubing; 15:35 Follow up: IV Status: Completed infusion; IV Intake: 1000ml tl3 15:19 Not Given (Physician Discretion): Zofran 4 mg IVP once; over 2 minutes mg2 17:26 Drug: Bentyl 20 mg Route: PO; tl3 20:05 Follow up: Response: No adverse reaction tl3 17:28 Drug: Phenergan 12.5 mg Route: IVP; Infused Over: 5 mins; Site: right antecubital; tl3 20:01 Follow up: Response: No adverse reaction tl3 19:03 Drug: NS 0.9% 250 ml Route: IV; Rate: bolus; Site: left antecubital; Delivery: Primary tl3 tubing; 20:03 Follow up: IV Status: Completed infusion; IV Intake: 250ml tl3 19:05 Drug: Reglan 10 mg Route: IVP; Infused Over: 30 mins; Site: left antecubital; tl3 20:01 Follow up: Response: No adverse reaction tl3 20:03 Drug: GI Cocktail without - (Maalox Suspension 30 ml, Lidocaine Liquid 2 % 15 tl3 ml) Route: PO; 20:02 Follow up: Response: No adverse reaction tl3 20:58 Follow up: Response: No adverse reaction; Marked relief of symptoms mg2 Intake: 15:35 IV: 1000ml; Total: 1000ml. tl3 20:03 IV: 250ml; Total: 1250ml. tl3 Outcome: 20:49 Discharge ordered by MD. davis 21:20 Discharged to home ambulatory, with family. mg2 21:20 Condition: stable 21:20 Discharge instructions given to patient, family, Instructed on discharge instructions, follow up and referral plans. medication usage, Demonstrated understanding of instructions, follow-up care, medications, Prescriptions given X 2. 21:21 Patient left the ED. mg2 Signatures: Dispatcher [employer] EDMS Vanessa Reddy RN RN sv Mickail, Joel, PA PA [facility] Naida BurtMargie Jose RN RN ja1 Ann Irvin RN RN tl3 Jayant Jackson RN RN mg2 Marco Lorenzo jp3 Corrections: (The following items were deleted from the chart) 21:21 21:20 General: Appears in no apparent distress. comfortable, Behavior is calm, mg2 cooperative, mg2
--- NOTE | 2018-08-09 20:50 | EDPHYS ---
Physician Documentation [facility] Name: Amena Smalls Age: 58 yrs Sex: Female : 1960 Arrival Date: 08/09/2018 Time: 13:22 Bed 26 Private MD: ED Physician Philippe Michaud HPI: 08/09 14:05 This 58 yrs old Female presents to ER via Ambulatory with complaints of jmm Vomiting/Diarrhea. 14:05 The patient presents to the emergency department with nausea, vomiting, diarrhea, jmm abdominal pain. Onset: The symptoms/episode began/occurred acutely, this morning. Possible causes: unknown. The symptoms are aggravated by nothing. The symptoms are alleviated by nothing. Associated signs and symptoms: Pertinent positives: abdominal pain, diarrhea, Pertinent negatives: fever. This is a 58 year old female with a history of a. fib, cva, GERD presents to the ED with vomiting, abdominal pain, diarrhea beginning this morning at 0300. Complains of epigastric abdominal pain which is intermittent. Symptoms are not relieved with home zofran. . Historical: - Allergies: 13:25 Codeine; sv 13:25 Ibuprofen; sv 13:25 Levaquin; sv - PMHx: 13:25 Anxiety; Asthma; Atrial Fib; Colitis; CVA; fracture to sacrum; GERD; High Cholesterol; sv left hip fx and pinning; spinal muscle atrophy; spinal muscle atrophy, Left hip fracture and pinning, colitis, hypercholesteremia; - PSHx: 13:25 Appendectomy; Cholecystectomy; left hip with left femur neel; sv - Immunization history:: Flu vaccine is up to date. - Social history:: Smoking status: Patient/guardian denies using tobacco. - Ebola Screening: : No symptoms or risks identified at this time. ROS: 14:07 Constitutional: Negative for fever, chills, and weight loss, Cardiovascular: Negative jmm for chest pain, palpitations, and edema, Respiratory: Negative for shortness of breath, cough, wheezing, and pleuritic chest pain. 14:07 Abdomen/GI: Positive for abdominal pain, nausea and vomiting, diarrhea. 14:07 All other systems are negative. Exam: 14:07 Constitutional: This is a well developed, well nourished patient who is awake, alert, jmm and in no acute distress. Head/Face: atraumatic. Eyes: EOMI, no conjunctival erythema appreciated ENT: Moist Mucus Membranes Neck: Trachea midline, Supple Chest/axilla: Normal chest wall appearance and motion. Cardiovascular: Regular rate and rhythm. No edema appreciated Respiratory: Normal respirations, no respiratory distress appreciated 14:07 Back: Normal ROM Skin: General appearance color normal MS/ Extremity: Moves all extremities, no obvious deformities appreciated, no edema noted to the lower extremities Neuro: Awake and alert, normal gait Psych: Behavior is normal, Mood is normal, Patient is cooperative and pleasant 14:07 Abdomen/GI: Inspection: abdomen appears normal, Bowel sounds: normal, Palpation: soft, mild abdominal tenderness, in the right upper quadrant and left upper quadrant, Indicators: McBurney's point is not tender. Vital Signs: 13:25 BP 127 / 83; Pulse 94; Resp 18; Temp 98.3; Pulse Ox 99% ; Weight 65.77 kg; Height 5 ft. sv 5 in. (165.10 cm); Pain 0/10; 16:48 BP 123 / 76; Pulse 100; Resp 18; Pulse Ox 100% on R/A; Pain 0/10; mg2 17:24 BP 130 / 78; Pulse 94; Resp 18; Pulse Ox 100% on R/A; tl3 20:02 BP 140 / 83; Pulse 99; Resp 18; Pulse Ox 100% on R/A; tl3 21:19 BP 135 / 78; Pulse 90; Resp 18; Pulse Ox 100% on R/A; Pain 0/10; mg2 13:25 Body Mass Index 24.13 (65.77 kg, 165.10 cm) sv MDM: 13:54 Patient medically screened. susan 20:47 Data reviewed: vital signs, nurses notes. Counseling: I had a detailed discussion with susan the patient and/or guardian regarding: the historical points, exam findings, and any diagnostic results supporting the discharge/admit diagnosis, lab results, radiology results, the need for outpatient follow up, to return to the emergency department if symptoms worsen or persist or if there are any questions or concerns that arise at home. ED course: Patient tolerates PO in the ED. Patient states feeling better. Patient declined admission for observation and IVF. Patient given strict return precautions. Patient understood and agrees with the plan of care. . 08/09 14:52 Order name: Basic Metabolic Panel; Complete Time: 15:25 EDMS 08/09 14:52 Order name: Liver (Hepatic) Function; Complete Time: 15:25 [facility] 08/09 14:52 Order name: Lipase; Complete Time: 15:25 [facility] 08/09 14:52 Order name: CBC with Automated Diff; Complete Time: 18:48 [facility] 08/09 15:36 Order name: Urine Culture 3 08/09 15:36 Order name: Urine Microscopic Only; Complete Time: 16:15 [facility] 08/09 16:05 Order name: Urine Dipstick--Ancillary (enter results); Complete Time: 16:25 08/09 16:05 Order name: Urine --Ancillary (enter results); Complete Time: 16:25 08/09 13:54 Order name: IV Saline Lock; Complete Time: 14:32 [facility] [place] 08/09 13:54 Order name: Labs collected and sent; Complete Time: 14:32 [facility] [place] 08/09 13:54 Order name: Urine Dipstick-Ancillary (obtain specimen); Complete Time: 15:31 [facility] [place] 08/09 17:16 Order name: CT Abd/Pelvis - W/Contrast; Complete Time: 18:36 [facility] [place] Administered Medications: 14:25 Drug: Phenergan 12.5 mg Route: IVP; Infused Over: 5 mins; Site: right antecubital; tl3 17:26 Follow up: Response: No adverse reaction tl3 14:35 Drug: NS 0.9% 1000 ml Route: IV; Rate: 1 bolus; Site: right antecubital; Delivery: tl3 Primary tubing; 15:35 Follow up: IV Status: Completed infusion; IV Intake: 1000ml tl3 15:19 Not Given (Physician Discretion): Zofran 4 mg IVP once; over 2 minutes mg2 17:26 Drug: Bentyl 20 mg Route: PO; tl3 20:05 Follow up: Response: No adverse reaction tl3 17:28 Drug: Phenergan 12.5 mg Route: IVP; Infused Over: 5 mins; Site: right antecubital; tl3 20:01 Follow up: Response: No adverse reaction tl3 19:03 Drug: NS 0.9% 250 ml Route: IV; Rate: bolus; Site: left antecubital; Delivery: Primary tl3 tubing; 20:03 Follow up: IV Status: Completed infusion; IV Intake: 250ml tl3 19:05 Drug: Reglan 10 mg Route: IVP; Infused Over: 30 mins; Site: left antecubital; tl3 20:01 Follow up: Response: No adverse reaction tl3 20:03 Drug: GI Cocktail without - (Maalox Suspension 30 ml, Lidocaine Liquid 2 % 15 tl3 ml) Route: PO; 20:02 Follow up: Response: No adverse reaction tl3 20:58 Follow up: Response: No adverse reaction; Marked relief of symptoms mg2 Disposition: 08/09/18 20:49 Discharged to Home. Impression: Vomiting, Diarrhea, unspecified. - Condition is Stable. - Discharge Instructions: Food Choices to Help Relieve Diarrhea, Adult, Diarrhea, Adult, Nausea and Vomiting, Adult. - Prescriptions for Reglan 10 mg Oral Tablet - take 1 tablet by ORAL route every 6 hours take 30 minutes before meals and at bedtime; 20 tablet. Zofran ODT 4 mg Oral tablet,disintegrating - place 1 tablet by TRANSLINGUAL route every 4-6 hours; 20 tablet. - Medication Reconciliation Form, Thank You Letter, Antibiotic Education, Prescription Opioid Use form. - Follow up: Private Physician; When: 1 - 2 days; Reason: Recheck today's complaints, Continuance of care, Re-evaluation by your physician. Addendum: 08/13/2018 07:13 Co-signature as Attending Physician, Philippe Michaud MD. r n Signatures: Dispatcher [employer] EDVanessa Moon RN RN Kevin Perez PA PA jmm Nieto, Roman, MD MD rn Lowrey, Tammy, RN RN tl3 Jayant Jackson RN RN mg2 Corrections: (The following items were deleted from the chart) 08/09 18:16 14:52 BASIC METABOLIC PANEL+C.LAB.BRZ ordered. EDMS EDMS 18:16 14:52 CBC+H.LAB.BRZ ordered. EDMS EDMS 18:16 14:52 Creatinine for Radiology+C.LAB.BRZ ordered. EDMS EDMS 18:16 14:52 HEPATIC FUNCTION+C.LAB.BRZ ordered. EDMS EDMS 18:16 14:52 LIPASE+C.LAB.BRZ ordered. EDMS EDMS 21:21 20:49 08/09/2018 20:49 Discharged to Home. Impression: Vomiting; Diarrhea, unspecified. mg2 Condition is Stable. Forms are Medication Reconciliation Form, Thank You Letter, Antibiotic Education, Prescription Opioid Use. Follow up: Private Physician; When: 1 - 2 days; Reason: Recheck today's complaints, Continuance of care, Re-evaluation by your physician. susan
[2018-08-09 21:54] VITALS: TEMP 98.3
[2018-08-09 21:56] VITALS: O2SAT 100
[2018-08-09 21:59] VITALS: BP 135/78
== END 2018-08-09 21:21 | disposition home or self-care (01) ==
LOC: ER 13:19
DX: R19.7 Diarrhea, unspecified (principal); I48.91 Unspecified atrial fibrillation; Z86.73 Personal history of transient ischemic attack (TIA), and cerebral infarction without residual deficits; Z88.1 Allergy status to other antibiotic agents; Z88.5 Allergy status to narcotic agent; Z88.6 Allergy status to analgesic agent
CPT/HCPCS: 36415; 74177; 80048; 80076; 81003; 81015; 81025; 83690; 85025; 87086; 87088; J2405; J2550; J2765; J7030; Q9967

== ENCOUNTER 2019-04-03 19:29 | Emergency (ER) | payer OTHER ==
--- OUTSIDE RECORDS SUMMARY | 2019-04-03 19:37 | XMS REPORT | Clinical Summary ---
:1960 Author Organization [employer] [facility] Address [address] [place] [address] Care Team Providers Name Role Phone Saritha Daniel DROP SHIPMENT CLERK-C Primary Care Provider Allergies Active Allergy Reactions Severity Noted Date Comments Codeine 12/15/2016 Ibuprofen 08/09/2017 Other reaction(s): Unknown - See comments Levofloxacin Medium 08/09/2017 Other reaction(s): Other - See comments, Unknown - See comments Nsaids (Non-Steroidal High 02/17/2019 Other reaction(s): Nausea Anti-Inflammatory Drug) and/or Vomiting, Unknown - See comments Medications Medication Sig Dispensed Refills Start End Date Status Date ADVAIR DISKUS as needed. 2 Active 100-50 mcg/dose 7 DISKUS carisoprodol TAKE ONE (1) 1 Active (SOMA) 350 MG TABLET(S) BY 7 tablet MOUTH TWICE A DAY NEEDED. OSPHENA 60 mg TAKE ONE (1) 0 Active tablet TABLET(S) BY 7 MOUTH ONCE A DAY WITH FOOD. rosuvastatin TAKE ONE (1) 3 Active (CRESTOR) 10 MG TABLET(S) BY 7 tablet MOUTH ONCE A DAY AT BEDTIME. traMADol (ULTRAM) TAKE ONE (1) 1 Active 50 mg tablet TABLET(S) BY 7 MOUTH 3 TO 4 TIMES A DAY NEEDED. zolpidem (AMBIEN) TAKE ONE (1) 2 Active 10 mg tablet TABLET(S) BY 7 MOUTH ONCE A DAY. doxepin (ZONALON) Apply topically 3 Active 5 % cream daily as needed. 7 fluticasone USE TWO (2) 2 Active propionate SPRAY(S) INTO 9 (FLONASE) 50 EACH NOSTRIL ONCE mcg/actuation A DAY. nasal spray omeprazole TAKE ONE (1) 1 Active (PriLOSEC) 20 MG CAPSULE(S) BY 9 capsule MOUTH ONCE A DAY. nusinersen by intrathecal 0 Active sodium/PF route every 4 (SPINRAZA, PF, (four) months. IT) alendronate TAKE ONE (1) 2 03/14/20 Discontinued (FOSAMAX) 35 MG TABLET(S) BY 7 19 (Med List tablet MOUTH ONCE Cleanup) WEEKLY. ZOSTAVAX, PF, RECONSTITUTE AND 0 03/14/20 Discontinued 19,400 unit/0.65 ADMINISTER 0.65ML 7 19 (Med List mL injection Cleanup) Active Problems Problem Noted Date Spinal muscular atrophy 02/05/2017 Encounters Date Type Specialty Care Team Description 04/02/2019 Orders Only Neurology Dione George MA SMA (spinal muscular atrophy) ([facility]) (Primary Dx); At high risk for injury related to fall 04/02/2019 Orders Only Neurology Dione George MA SMA (spinal muscular atrophy) ([facility]) (Primary Dx); At high risk for injury related to fall 03/26/2019 Hospital Encounter Radiology Tyree Holder SMA (spinal muscular MD Marnio atrophy) ([facility]) 03/26/2019 Lab Lab Tyree Holder Aftercare; MD Marino SMA (spinal muscular atrophy) ([facility]) 03/26/2019 Hospital Encounter Pulmonology Tyree Holder SMA (spinal muscular MD Marino atrophy) ([facility]) 03/19/2019 Telephone Neurology Henna Sanchez RN 03/14/2019 Office Visit Neurology Tyree Holder SMA (spinal muscular atrophy) ([facility]) (Primary Dx); MD Marino Aftercare; At high risk for injury related to fall 11/05/2018 Telephone Neurology Tyree Holder MD after 04/02/2018 Family History Medical History Relation Name Comments Hyperlipidemia Father Hypertension Father Hypertension Mother Relation Name Status Comments Father Mother Sister Social History Tobacco Use Types Packs/Day Years Used Date Never Smoker Smokeless Tobacco: Never Used Alcohol Use Drinks/Week oz/Week Comments No Sex Assigned at Date Recorded Not on file Job Start Date Occupation Industry Not on file Not on file Not on file Travel History Travel Start Travel End No recent travel history available. Last Filed Vital Signs Vital Sign Reading Time Taken Comments Blood Pressure 121/79 03/14/2019 2:32 PM CDT Pulse 88 03/14/2019 2:32 PM CDT Temperature - - Respiratory Rate - - Oxygen Saturation - - Inhaled Oxygen Concentration - - Weight 67.9 kg (149 lb 11.2 oz) 03/14/2019 2:32 PM CDT Height 165.1 cm (5' 5") 03/14/2019 2:32 PM CDT Body Mass Index 24.91 03/14/2019 2:32 PM CDT Plan of Treatment Date Type Specialty Care Team Description 09/05/2019 Office Visit Neurology Yaneth Ontiveros MD [address] [address] Health Maintenance Due Date Last Done Comments CERVICAL CANCER SCREENING 1981 BREAST CANCER SCREENING 2010 COLONOSCOPY SCREENING 2010 SHINGLES VACCINES (#1) 2010 INFLUENZA VACCINE 02/20/2019 Procedures Procedure Name Priority Date/Time Associated Comments Diagnosis CT LUMBAR SPINE WO Routine 03/26/2019 4:33 SMA (spinal Results for this CONTRAST PM CDT muscular atrophy) procedure are in (HCC) the results section. URINALYSIS, AUTOMATED Routine 03/26/2019 3:19 Results for this WITH MICROSCOPY PM CDT procedure are in the results section. ESTIMATED GFR Routine 03/26/2019 3:12 Results for this PM CDT procedure are in the results section. PARTIAL THROMBOPLASTIN Routine 03/26/2019 3:12 Aftercare Results for this TIME (PTT) PM CDT procedure are in the results section. HC COMPLETE BLD COUNT Routine 03/26/2019 3:12 SMA (spinal Results for this W/AUTO DIFF PM CDT muscular atrophy) procedure are in (HCC) the results section. COMPREHENSIVE METABOLIC Routine 03/26/2019 3:12 SMA (spinal Results for this PANEL PM CDT muscular atrophy) procedure are in (HCC) the results section. PROTHROMBIN TIME WITH Routine 03/26/2019 3:12 Aftercare Results for this INR PM CDT procedure are in the results section. SPIROMETRY, MIPS/MEPS Routine 03/26/2019 1:54 SMA (spinal Results for this PM CDT muscular atrophy) procedure are in (HCC) the results section. after 04/02/[address] Lumbar Spine Wo Contrast (03/26/2019 4:33 PM CDT) Specimen Narrative Performed At EXAMINATION:CT LUMBAR SPINE WO CONTRAST RADIANT CLINICAL HISTORY:G12.9 Spinal muscular atrophyunspecified, SMAspinraza injection imaging for LP COMPARISON:None. TECHNIQUE: CT imaging was performed with iterative reconstruction technique and/or automated exposure control to reduce radiation dose. FINDINGS: 5 nonrib-bearing lumbar type vertebrae. Lumbar spine alignment is within normal limits. No fractures or aggressive bony lesions. Moderate disc space narrowing and endplate degenerative changes at L4-5 and to lesser degree at L5-S1. At L5-S1, facet arthropathy and osteophytosis causes moderate narrowing of the left foramen. No central canal narrowing. Small posterior disc bulge at L3-4. Mild degenerative changes of bilateral sacroiliac joints. There is fatty atrophy of the paraspinal musculature. IMPRESSION: No acute bony abnormalities. Mild multilevel degenerative changes worst at left L5-S1. No significant fusion of the posterior elements. Lumbar puncture can be done with fluoroscopic guidance. [id number] Procedure Note Interface, Radiology Results Incoming - 03/26/2019 5:13 PM CDT EXAMINATION: CT LUMBAR SPINE WO CONTRAST CLINICAL HISTORY: G12.9 Spinal muscular atrophy unspecified, SMA spinraza injection imaging for LP COMPARISON: None. TECHNIQUE: CT imaging was performed with iterative reconstruction technique and /or automated exposure control to reduce radiation dose. FINDINGS: 5 nonrib-bearing lumbar type vertebrae. Lumbar spine alignment is within normal limits. No fractures or aggressive bony lesions. Moderate disc space narrowing and endplate degenerative changes at L4-5 and to lesser degree at L5-S1. At L5-S1, facet arthropathy and osteophytosis causes moderate narrowing of the left foramen. No central canal narrowing. Small posterior disc bulge at L3-4. Mild degenerative changes of bilateral sacroiliac joints. There is fatty atrophy of the paraspinal musculature. IMPRESSION: No acute bony abnormalities. Mild multilevel degenerative changes worst at left L5-S1. No significant fusion of the posterior elements. Lumbar puncture can be done with fluoroscopic guidance. [facility]-[id number] Performing Organization Address City/State/Zipcode Phone Number [facility] [address] [place] [address] Urinalysis, automated with microscopy (03/26/2019 3:19 PM CDT) Color, UA Straw [facility] Appearance, UA Clear [facility] Specific gravity, UA 1.008 1.001 - 1.035 [facility] pH, UA 7.0 5.0 - 8.5 [facility] Protein, UA Negative Negative [facility] Glucose, UA Negative Negative [facility] Ketones, UA Trace (A) Negative [facility] Bilirubin, UA Negative Negative [facility] Blood, UA Negative Negative [facility] Nitrite, UA Negative Negative [facility] Urobilinogen, UA <2.0 <2.0 [facility] Leukocyte esterase, Trace (A) Negative [facility] Epithelial cells, UA 1 /HPF [facility] WBC, UA 2 0 - 4 /HPF [facility] RBC, UA 1 0 - 5 /HPF [facility] Bacteria, UA Few None seen [facility] Yeast, UA None seen [facility] Yeast with None seen [facility] pseudohyphae, [facility] Specimen Urine Performing Organization Address City/[facility] Cent[facility]ode Phone Number [facility] DEPARTMENT OF PATHOLOGY AND [address] [place] [phone] [address] Estimated GFR (03/26/2019 3:12 PM CDT) Pathologist [facility] Estimated GFR >=90 mL/min/1.73 [facility] Comment: HOSPITAL CatergoryUnitsInterpretation G1 >=90 Normal or high G2 60-89Mildly decreased [id number] to moderately decreased [id number] to severely decreased G4 15-29Severely decreased G5 <15Kidney failure The eGFR was calculated using the Chronic Kidney Disease Epidemiology Collaboration (CKD-EPI) equation. Interpretation is based on recommendations of the National Kidney Foundation-Kidney Disease Outcomes Quality Initiative (NKF-KDOQI) published in 2014. Specimen Plasma specimen Performing Organization Address City/State/Zipcode Phone Number [facility] DEPARTMENT OF PATHOLOGY AND [address] [place] [phone] [address] Partial thromboplastin time, activated (03/26/2019 3:12 PM CDT) Pathologist [facility] PTT 29.7 23.0 - 36.0 [facility] Comment: [facility] PTT therapeutic range for unfractionated heparin is 61.0-112.0 seconds which corresponds to Anti-Xa 0.3-0.7 U/ml. Specimen Blood Performing Organization Address City/[facility]/Zipcode Phone Number [facility] DEPARTMENT OF PATHOLOGY AND [address] [place] [phone] Prothrombin time with INR (03/26/2019 3:12 PM CDT) [facility] Prothrombin time 13.7 11.5 - 14.5 [facility] INR 1.1 [place] Comment: [facility] International Normalized Ratio (INR) is a therapeutic HOSPITAL monitoring tool for patients who are stable on oral anticoagulant therapy. An INR of 2.0-3.0 is suggested for deep vein thrombosis/pulmonary embolism. Specimen Blood Performing Organization Address City/[facility]ode Phone Number [facility] DEPARTMENT OF PATHOLOGY AND [address] [place] [phone] [place] [phone] CBC with platelet and differential (03/26/2019 3:12 PM CDT) [facility] WBC 6.02 4.50 - 11.00 [facility] k/uL [facility] RBC 3.91 (L) 4.20 - 5.50 [facility]/uL [facility] HGB 12.6 12.0 - 16.0 [facility] g/dL [facility] HCT 37.4 37.0 - 47.0 % [facility] MCV 95.7 82.0 - 100.0 [facility] MCH 32.2 27.0 - 34.0 pg [facility] MCHC 33.7 31.0 - 37.0 [facility] - [place] 45.3 37.0 - 55.0 fL [facility] MPV 9.6 8.8 - 13.2 fL [facility] Platelet count 209 150 - 400 k/uL [facility] Nucleated RBC 0.00 /100 WBC [facility] Neutrophils 62.4 39.0 - 69.0 % [facility] Lymphocytes 30.7 25.0 - 45.0 % [facility] Monocytes 4.8 0.0 - 10.0 % [facility] Eosinophils 0.8 0.0 - 5.0 % [facility] Basophils 1.0 0.0 - 1.0 % [facility] Immature granulocytes 0.3Comment: 0.0 - 1.0 % [facility] "Immature HOSPITAL granulocytes" (promyelocytes , myelocytes, metamyelocytes ) Specimen Blood Performing Organization Address City/[facility]/Zipcode Phone Number [facility] DEPARTMENT OF PATHOLOGY AND [address] [place] [phone] GENOMIC MEDICINE [facility] [address] [place] [phone] Comprehensive metabolic panel (03/26/2019 3:12 PM CDT) Sodium 140 135 - 148 [facility] mEq/L [facility] Potassium 3.5 3.5 - 5.0 [facility] mEq/L [facility] Chloride 100 98 - 112 mEq/L [facility] CO2 25 24 - 31 mEq/L [facility] Anion gap 15@ANIO 7 - 15 mEq/L [facility] BUN 7 6 - 20 mg/dL [facility] Creatinine 0.37 (L) 0.50 - 0.90 [facility] mg/dL [facility] Glucose 117 (H) 65 - 99 mg/dL [facility] Calcium 9.4 8.3 - 10.2 [facility] mg/dL [facility] Protein 7.2 6.3 - 8.3 g/dL [facility] Comment: HOSPITAL [place] 4.6-7.0 g/dL 1 week 4.4-7.6 g/dL 7 months-1year5.1-7.3 g/dL 1-2 years5.6-7.5 g/dL >3 years6.0-8.0 g/dL 18-150 6.3-8.3 g/dL Albumin 4.1 3.5 - 5.0 g/dL [facility] A/G ratio 1.3 0.7 - 3.8 [facility] Alkaline phosphatase 63 35 - 104 U/L [facility] AST 16 10 - 35 U/L [facility] ALT 12 5 - 50 U/L [facility] Total bilirubin 0.5 0.0 - 1.2 [facility] mg/dL HOSPITAL Specimen Plasma specimen Performing Organization Address City/State/Zipcode Phone Number [facility] DEPARTMENT OF PATHOLOGY AND [address] [place] [address] GENOMIC MEDICINE [facility] [address] [place] [address] Spirometry, MIPS/MEPS (03/26/2019 1:54 PM CDT) FEV1 Pre 2.29 2.10 - 3.31 L [facility] FEV1/FVC % Pre 72.00 68.69 - 88.28 % [facility] FVC Pre 3.18 2.77 - 4.20 L [facility] PEF Pre 6.32 4.79 - 8.32 L/s [facility] FEF 25-75% Pre 1.54 1.22 - 3.77 L/s [facility] MIP Pre 128.72 25.38 - 88.47 cmH2O [facility] MEP Pre 114.62 26.47 - 116.41 [facility] cmH2O FEV1 Predicted 2.70 [facility] FEV1 LLN 2.10 [facility] FEV1 % Pre of Predicted 84.6 % [facility] FVC Predicted 3.48 [facility] FVC LLN 2.77 [facility] FVC % Pre of Predicted 91.3 % [facility] FEV1/FVC % Predicted 78 [facility] FEV1/FVC % LLN 69 [facility] FEV1/FVC % Pre of 91.7 % [facility] Predicted FEF 25-75% Predicted 2.49 [facility] FEF 25-75% LLN 1.22 [facility] FEF 25-75% % Pre of 61.8 % [facility] Predicted PEF Predicted 6.55 [facility] PEF LLN 4.79 [facility] PEF % Pre of Predicted 96.4 % [facility] MIP Predicted 56.92 [facility] MIP LLN 25.38 [facility] MIP % Pre of Predicted 226.1 % [facility] MEP Predicted 71.44 [facility] MEP LLN 26.47 [facility] MEP % Pre of Predicted 160.4 % [facility] Specimen Narrative Performed At Performing Organization Address City/State/Zipcode Phone Number [facility] [address] [place] [address] after 04/02/2018 Insurance Payer Benefit Plan / Subscriber ID Effective Dates Phone Address Type Group MEDICARE MEDICARE PART A xxxxxxxxxxx 2015-Present [place], [place] Medicare AND B FOR LIFE xxxxxxxxx 2016-Present MCR SUPPLEMENT Advance Directives For more information, please contact: [phone] Type Date Recorded 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
--- OUTSIDE RECORDS SUMMARY | 2019-04-03 19:38 | XMS REPORT | Continuity of Care Document ---
:1960 Author Organization [employer] Care Team Providers Name Role Phone [employer] Unavailable Unavailable Problems Problem Status Onset Classification Date Comments [...] 10/29/[address] [facility] [place] Spinal cord disorder Resolved Problem 01/15/2019 Medical Group Intertrochanteric Inactive Finding 10/29/[address] [address] [facility] [place] Chest pain Active Finding 10/29/[address] [facility] [place] LUMBAR PAIN MARIA EUGENIA MURRAY Active [facility] WILL FAX [facility] Medications Medication Details Route Status Patient Ordering Order Source Instructions Provider Date Sulfamethoxazole 1 tab, PO, No 06/27/ Medical 800 MG / BID, X 14 day, Longer 2017 Group Trimethoprim 160 # 28 tab, 0 Active MG Oral Tablet Refill(s), [Bactrim] Pharmacy: [facility] [place] Prilosec PO, Daily, 0 Active 06/27[facility] Medical Refill(s) 2017 Group Ambien PO, Bedtime, 0 Active 06/27[facility] Medical Refill(s) 2017 Group Soma PO, QID, 0 Active 06/27[facility] Medical Refill(s) 2017 Group Tramadol 50 mg, PO, Active 06/27[facility] Medical Q4-6H, PRN 2018 Group Pain, # 20 tab, 0 Refill(s) Alendronate Sodium Q7D Active [facility] St[facility] 2018 [facility] [place] Butalbital/Aspirin DAILY PRN For Active [facility] St. /Caffeine Headache 2018 [facility] [place] Calcium Carbonate DAILY Active [facility] St[facility] 2018 [facility] [place] Rosuvastatin DAILY Active [facility] St[facility] 2018 [facility] [place] Fluticasone DAILY Active [facility] St[facility] 2018 [facility] [place] Ondansetron Hcl DAILY Active [facility] St[facility] 2018 [facility] [place] Carisoprodol TWICE DAILY Active [facility] St[facility] 2018 [facility] [place] Tramadol Hcl TWICE DAILY Active [facility] . 2018 [facility] [place] Colestipol Hcl DAILY Active [facility] . 2018 [facility] [place] Tramadol Hcl EVERY 4 HOURS Active Evie [facility] St[facility] NEEDED PRN 2018 [facility] [place] Carisoprodol AT BEDTIME Active Dennis [facility] 2018 [facility] [place] Polyethylene DAILY PRN For Active [facility] Glycol 3350 Constipation 2018 [facility] [place] Carisoprodol THREE TIMES A Active [facility] St. DAY 2017 [facility] [place] Fluticasone/Salmet DAILY Active [facility] St[facility] silvia 2015 [facility] [place] Zolpidem Tartrate AT BEDTIME Active [facility] St[facility] 2013 [facility] [place] Omeprazole DAILY Active [facility] St[facility] 2013 [facility] [place] Allergies, Adverse Reactions, Alerts Substance Category Reaction Severity Reaction Status Date Comments Source type Reported hydrocodone Nausea/Vo Allergy to Active [facility] St[facility] miting Substance 8 [facility] [place] levofloxacin "makes me Propensity Active [facility] St. feel to adverse 8 [facility] - bad", reactions [place] codeine Assertion Drug Active allergy Medical Group ibuprofen Assertion Drug Active allergy Medical Group Levaquin Assertion Drug Active allergy [facility] NSAIDs Assertion Drug Active allergy [facility] Immunizations Immunization Date Given Site Status Last Comments Source Updated Influenza Adult 05/05/[address] [facility] [place] Results Order Name Results Value Reference Date Interpretation Comments Source Range Laboratory Troponin I <0.03 10/29 [facility] Studies /2017 [facility] [place] Laboratory Potassium 3.9 3.6 - 5.0 10/29 [facility] St[facility] Studies Level /2017 [facility] [place] Laboratory Urine pH 6.0 10/29 St[facility] Studies [facility] [place] [facility] Urine Total Urine Total 10/29 [facility] Studies Protein Protein /2017 [facility] [place] Laboratory Urine 1.015 10/29 [facility]. Studies Specific /2017 [facility] [place] Laboratory Urine Nitrite Urine 10/29 [facility]. Studies Nitrite [facility] [place] Laboratory Urine Urine 10/29 [facility]. Studies Leukocyte Leukocyte /2017 [facility] Esterase Esterase [place] Laboratory Urine Ketones Urine 10/29 [facility]. Studies Ketones [facility] [place] Laboratory Urine Glucose Urine 10/29 [facility]. Studies Glucose [facility] [place] [facility] Urine Blood Urine Blood 10/29 [facility]. Studies [facility] [place] Laboratory Creatine 2.3 0.3 - 4.0 10/29 [facility]. Studies Kinase MB /2017 [facility] [place] Laboratory B-Type 32 10/29 [facility]. Studies Natriuretic [facility] Peptide [place] Laboratory Rapid <0.03 10/29 [facility]. Studies Troponin I [facility] [place] Laboratory Total 0.5 0.3 - 1.2 10/29 [facility]. Studies Bilirubin [facility] [place] Laboratory Serum Total 7.0 6.0 - 8.3 10/29 [facility] St[facility] Studies Protein [facility] [place] Laboratory Magnesium 1.9 1.8 - 2.5 10/29 [facility]. Studies Level /2017 [facility] [place] Laboratory Globulin 2.9 2.3 - 3.5 10/29 [facility]. Studies [facility] [place] Laboratory Estimat >90 90 10/29 [facility]. Studies Glomerular [facility] Filtration [place] Rate Laboratory Direct 0.1 0 - 0.2 10/29 [facility]. Studies Bilirubin [facility] [place] Laboratory Creatinine 0.47 0.44 - [address] Studies 1.00 /2017 [facility] [place] Laboratory Creatine 84 22 - 269 04 [facility] [address] Studies Kinase /2017 [facility] [place] Laboratory Blood Urea 13 6 - 20 10/29 [facility] St[facility] Studies Nitrogen /2017 [facility] [place] Laboratory Aspartate 20 10 - 42 04 [facility] [address] Studies Amino Transf /2017 [facility] (AST/SGOT) [place] Laboratory Alkaline 76 42 - 121 10/29 [facility] St[facility] Studies Phosphatase /2017 [facility] [place] Laboratory Albumin/Globu 1.4 1.1 - 1.8 10/29 [facility] St. Studies steph Ratio /2017 [facility] [place] Laboratory Albumin 4.1 3.2 - 5.5 10/29 [facility] St[facility] Studies /2017 [facility] [place] Laboratory Alanine 20 10 - 60 10/29 [facility]. Studies Aminotransfer /2017 [facility] ase [place] (ALT/SGPT) Laboratory Sodium Level 139 135 - 145 10/29 [facility] St[facility] Studies /2017 [facility] [place] Laboratory Glucose Level 103 65 - 120 10/29 [facility] St[facility] Studies /2017 [facility] [place] Laboratory Chloride 104 101 - 111 10/29 [facility] [address] Studies Level /2017 [facility] [place] Laboratory Carbon 26 21 - 31 10/29 [facility]. Studies Dioxide Level /2017 [facility] [place] Laboratory Calcium Level 8.9 8.5 - 10.5 10/29 [facility] St[facility] Studies /2017 [facility] [place] Laboratory White Blood 7.8 4.3 - 10.9 10/29 [facility]. Studies Count /2017 [facility] [place] Laboratory Red Cell 13.5 12.1 - 10/29 [facility] St[facility] Studies Distribution 15.2 /2017 [facility] Width [place] Laboratory Red Blood 4.10 3.86 - 04 [facility]. Studies Count 4.86 /2017 [facility] [place] Laboratory Platelet 237 152 - 406 10/29 [facility] [address] Studies Count /2017 [facility] [place] Laboratory Neutrophils % 53.4 41.7 - 04 [facility] St[facility] Studies 73.7 /2017 [facility] [place] Laboratory Monocytes % 6.0 3.3 - 12.3 10/29 [facility] St[facility] Studies /2018 [facility] [place] Laboratory Mean Platelet 8.2 7.6 - 11.3 10/29 [facility] St[facility] Studies Volume /2018 [facility] [place] Laboratory Mean 94.0 80 - 100 10/29 [facility]. Studies Corpuscular /2017 [facility] Volume [place] Laboratory Mean 33.2 32.0 - 10/29 [facility]. Studies Corpuscular 36.0 /2017 [facility] Hemoglobin [place] Concent Laboratory Mean 31.2 27.0 - 10/29 [facility]. Studies Corpuscular 35.0 /2017 [facility] Hemoglobin [place] Laboratory Lymphocytes % 37.0 15.3 - 10/29 [facility] St[facility] Studies 44.8 /2017 [facility] [place] Laboratory Hemoglobin 12.8 12.0 - 10/29 [facility]. Studies 15.0 /2017 [facility] [place] Laboratory Hematocrit 38.5 36.0 - 10/29 [facility]. Studies 45.0 /2017 [facility] [place] Laboratory Eosinophils % 3.0 0 - 4.4 10/29 [facility] St[facility] Studies /2017 [facility] [place] Laboratory Basophils % 0.6 0 - 1.3 10/29 [facility] St[facility] Studies /2017 [facility] [place] Laboratory Absolute 4.2 1.8 - 8.0 10/29 [facility]. Studies Neutrophil /2017 [facility] [place] Laboratory Absolute 0.5 0.1 - 1.3 10/29 [facility]. Studies Monocytes /2017 [facility] (CBC) [place] Laboratory Absolute 2.9 0.7 - 4.9 10/29 [facility]. Studies Lymphocytes /2017 [facility] (CBC) [place] Laboratory Absolute 0.2 0 - 0.5 10/29 [facility]. Studies Eosinophils /2017 [facility] (CBC) [place] Laboratory Absolute 0.0 0 - 0.5 10/29 [facility]. Studies Basophils /2017 [facility] (CBC) [place] Laboratory Prothrombin 11.9 9.5 - 12.5 10/29 [facility]. Studies Time /2017 [facility] [place] Laboratory INR 1.01 10/29 [facility]. Studies International /2017 [facility] Normalized [place] Ratio Laboratory Activated 27.3 24.3 - 10/29 [facility]. Studies Partial 36.9 /2017 [facility] Thromboplast [place] Time Laboratory Urine Random 8 10/12 [facility]. Studies Total Protein /2017 [facility] [place] Laboratory Urine Urine 09/23 [facility]. Studies /2017 [facility] Test Test [place] Laboratory Urine WBC Urine WBC 09/[address] Studies /2018 [facility] [place] Laboratory Urine <5 09/[address] Studies Urothelial [facility] Cells [place] Laboratory Urine <5 09/23 [facility] [address] Studies Squamous [facility] Epithelial [place] Cells Laboratory Urine RBC <5 09/23 [facility] [address] Studies [facility] [place] Laboratory Urine Culture Urine 09/23 [facility] [address] Studies Reflexed Culture [facility] Reflexed [place] Laboratory Urine <20 09/23 [facility] [address] Studies Bacteria [facility] [place] Laboratory Prealbumin 18.1 18 - 38 08/16 [facility] [address] Studies [facility] [place] Laboratory Urine 0.2 08/09 [facility] St[facility] Studies Urobilinogen [facility] [place] Laboratory Urine Color Urine Color 08/09 [facility] [address] Studies [facility] [place] Laboratory Urine Urine 08/09 [facility] [address] Studies Bilirubin Bilirubin [facility] [place] Laboratory Urine Urine 08/09 [facility] [address] Studies Appearance Appearance [facility] [place] Pathology Reports No Data Provided for This Section Diagnostic Reports No Data Provided for This Section Consultation Notes No Data Provided for This Section Discharge Summaries No Data Provided for This Section History and Physicals No Data Provided for This Section Vital Signs Vital Sign Value Date Comments Source Height 165.1 cm 06/27/2018 [facility] Weight 69.233 06/27/2018 [facility] BMI Calculated 25.4 06/27/2018 [facility] Heart Rate 92 06/27/2018 [facility] Temperature Oral (F) 97.9 F 06/27/2018 [facility] Systolic (mm Hg) 121 06/27/2018 [facility] Diastolic (mm Hg) 80 06/27/2018 [facility] Temperature Oral (F) 98.0 F 10/29/[address] [facility] [place] Heart Rate 76 10/29/[address] [facility] [address] [facility] [place] Respitory Rate 18 10/29/[address] [facility] [address] [facility] [place] Systolic (mm Hg) 103 10/29/[address] [facility] [address] [facility] [place] Diastolic (mm Hg) 76 10/29/[address] [facility] [place] Height 65 10/29/[address] [facility] [address] [facility] [place] Weight 140 10/29/[address] [facility] [place] Encounters Location Location Encounter Encounter Reason Attending ADM DC Status Source Details Type Number For Provider Date Date Visit [facility] St. Departed [id number] 08/01 08/[address] [facility]2017 [facility] [place] [facility] [facility] [id number] 08/04 08/[address] [facility] [place] [facility] [facility] [id number] 08/09 08/[address] [facility]2017 [facility] [place] [facility] St[facility] Registered [id number] 09/[address] [facility] Referred [facility]2018 [facility] [place] [facility] St. Registered [id number] 09/[address] [facility] Referred [facility]2018 [facility] [place] [facility] St. Departed [id number] 09/23 09/[address] [facility] Emergency /2017 [facility] [place] [facility] St[facility] Registered [id number] 10[facility] [facility] Referred /2018 [facility] [place] [facility] [facility] [id number] 10/29 10/[address] [facility]2017 [facility] [place] Outpatient [id number] [facility] 06/27 [facility]patient [id number] [facility] 06[facility]27 06/28 Care Clear [employer] Procedures Procedure Code Date Perfomer Comments Source Ct Stroke Brain Wo [id number] 10/30/19 [facility] [place] Chest Single View [id number] 10/29/[address] [facility] [place] [id number] 09/24/[address] [facility] [place] Dale Count [id number] 09/24/[address] [facility] - [place] Head Brain Wo Cont [id number] 09/24/[address] [facility] [address] [place] Cholecystectomy [id number] [facility] Hip joint operations [id number] Medical Group Assessment and Plan No Data Provided for This Section Plan of Care Plan of Care Date Source Instructions 10/29/2017 OPHELIA ZAPATA for Atypical Chest Pain Fatigue Acute Pain, Adult GOAL: Clear understanding of disease process INSTRUCTIONS: - Please f/u with Dr Case in 1 to 2 weeks post discharge - Follow up with your PCP in 1 to 2 weeks, call for appointment. Feel free to call 4th floor nurses station with any questions or concerns: [phone] Diet: Regular Activity: As tolerated DME DME: Date Ordered: Name of Company: [employer] Services Needed: Home Health Name of Company: [employer] ([phone]) Date or Referral: 10/29/17 IMMUNIZATION Influenza Vaccine Indicated: Influenza Vaccine Given: Date Given: Pneumonia Vaccine Indicated: No Pneumonia Vaccine Given: Date Given: Instructions 10/29/2017 OPHELIA Huntley - [facility] for Atypical Chest Pain Fatigue Acute Pain, Adult GOAL: Clear understanding of disease process INSTRUCTIONS: - Please f/u with Dr Case in 1 to 2 weeks post discharge - Follow up with your PCP in 1 to 2 weeks, call for appointment. Feel free to call 4th floor nurses station with any questions or concerns: [phone] Diet: Regular Activity: As tolerated DME DME: Date Ordered: Name of Company: [employer] Services Needed: Home Health Name of Company: [employer] ([phone]) Date or Referral: 10/29/17 IMMUNIZATION Influenza Vaccine Indicated: Influenza Vaccine Given: Date Given: Pneumonia Vaccine Indicated: No Pneumonia Vaccine Given: Date Given: Social History Social History Date Source Social History TypeResponse 06/27/2018 [facility] Smoking Status Never smoker; Exposure to Tobacco Smoke None; Cigarette Smoking Last 365 Days No; Reg Smoking Cessation Counseling No entered on: 06/27/18 Query Response Date Recorded Comment 10/29/2017 OPHELIA [place] Carmen Alcohol Use? No October 29, 2017 3:52am CD- Drugs? No October 29, 2017 3:52am Query Response Start Date Stop Date Smoking Status Never smoker Family History Value Date Source Query Response Instance Date Recorded Comment 10/29/2017 OPHELIA [place] Carmen Nurses notes high cholesterol, dementia Mother October 29, 2017 3:52am Nurses notes pacemaker, high cholesterol Father October 29, 2017 3:52am Medical History Hypertension Other (see notes) Mother October 29, 2017 3:52am Medical History Hypertension Other (see notes) Father October 29, 2017 3:52am Nurses notes pacemaker, high cholesterol June 14, 2015 3:46am Medical History Hypertension Other (see notes) June 14, 2015 3:46am Advance Directives Order Name Results Value Date Source Advance Directives Advance Directives Advance Directive Response Recorded Date/Time 10/29/2017 OPHELIA Huntley - Does Patient Have Living Will [place] No October 29, 2017 3:52am 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
--- OUTSIDE RECORDS SUMMARY | 2019-04-03 19:38 | XMS REPORT ---
:1960 Author [email or web address] Preferred Language Unknown Marital Status Unknown Sabianism Affiliation Unknown Race Unknown Additional Race(s) Unavailable Ethnic Group Unknown [facility] Address [address] [place] [address] Dr. [place] [address] [place] [id number] Care Team Providers Name Role Phone Unavailable Unavailable Unavailable Problems This patient has no known problems. Allergies, Adverse Reactions, Alerts This patient has no known allergies or adverse reactions. Medications This patient has no known medications.
[2019-04-03] MEDS ORDERED: TETRACAINE HCL 0.5% 4ML OPTH ONE (20:25)
[2019-04-03] MEDS ORDERED: NA CHLORIDE 0.9% 1,000 ML ONE (20:27)
[2019-04-03] MEDS ORDERED: FLUORESCEIN SODIUM 1 MG/WRAP ONE (22:10)
--- NOTE | 2019-04-03 22:17 | ER ---
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 Transition of care: patient was not received from another setting of care. The patient denies any loss of vision. Onset of symptoms was April 03, 2019. Risk Assessment: Do you want to hurt yourself or someone else? Patient reports no desire to harm self or others. Initial Sepsis Screen: Does the patient meet any 2 criteria? No. Patient's initial sepsis screen is negative. Does the patient have a suspected source of infection? No. Patient's initial sepsis screen is negative. Care prior to arrival: None. 19:36 Method Of Arrival: Ambulatory ak1 19:36 Acuity: VAISHNAVI 2 ak1 Triage Assessment: 19:39 General: Appears in no apparent distress. Behavior is calm, cooperative. ak1 Historical: - Allergies: 19:39 Levaquin; ak1 19:39 Ibuprofen; ak1 19:39 Codeine; ak1 - Home Meds: 19:39 Prilosec 40 mg Oral cpDR 1 cap once daily [Active]; Ambien Oral [Active]; Soma Oral ak1 [Active]; tramadol 50 mg Oral tab 1 tab every 6 hours [Active]; - PMHx: 19:39 Anxiety; Asthma; Atrial Fib; Colitis; CVA; fracture to sacrum; GERD; left hip fx and ak1 pinning; High Cholesterol; spinal muscle atrophy; spinal muscle atrophy, Left hip fracture and pinning, colitis, hypercholesteremia; - PSHx: 19:39 Appendectomy; Cholecystectomy; left hip with left femur neel; ak1 - Immunization history:: Adult Immunizations unknown. - Social history:: Smoking status: Patient/guardian denies using tobacco. - Ebola Screening: : No symptoms or risks identified at this time. Screenin:55 Abuse screen: Denies threats or abuse. Denies injuries from another. Nutritional aa1 screening: No deficits noted. Tuberculosis screening: No symptoms or risk factors identified. Fall Risk None identified. Assessment: 19:55 General: Appears in no apparent distress. uncomfortable, Behavior is calm, cooperative, aa1 appropriate for age. Pain: Complains of pain in right eye and left eye Quality of pain is described as burning, Pain began 1 hour ago. Is continuous. Neuro: Level of Consciousness is awake, alert, obeys commands, Oriented to person, place, time, situation, Moves all extremities. Full function Gait is steady. Respiratory: Airway is patent Respiratory effort is even, unlabored, Respiratory pattern is regular, symmetrical. GI: No signs and/or symptoms were reported involving the gastrointestinal system. : No signs and/or symptoms were reported regarding the genitourinary system. EENT: Eyes are tearing on right eye and left eye Sclera/Cornea are reddened in right eye and left eye. Derm: Skin is intact, is healthy with good turgor, Skin is pink, warm \T\ dry. Musculoskeletal: Circulation, motion, and sensation intact. Capillary refill < 3 seconds. 20:05 Reassessment: Pt assisted with eye wash station and instructed to irrigate luanne eyes x aa1 10 mins. 20:34 Reassessment: Patient appears in no apparent distress at this time. Patient and/or aa1 family updated on plan of care and expected duration. Pain level reassessed. Patient is alert, oriented x 3, equal unlabored respirations, skin warm/dry/pink. Tetracaine drops applied and monique lens inserted luanne eyes with liter NS infusing to each eye. 21:05 Reassessment: Patient appears in no apparent distress at this time. Patient and/or aa1 family updated on plan of care and expected duration. Pain level reassessed. Patient is alert, oriented x 3, equal unlabored respirations, skin warm/dry/pink. Eye irrigation complete and monique lenses removed. PA notified. Patient states feeling better. Patient states symptoms have improved. 22:18 Reassessment: Patient appears in no apparent distress at this time. Patient is alert, aa1 oriented x 3, equal unlabored respirations, skin warm/dry/pink. Discussed d/c \T\ f/u instructions with pt; denies questions or concerns at this time Patient states feeling better. Vital Signs: 19:39 BP 128 / 84; Pulse 103; Resp 18; Temp 98.4; Pulse Ox 97% on R/A; Weight 65.77 kg (R); ak1 Height 5 ft. 5 in. (165.10 cm) (R); Pain 8/10; 21:17 BP 121 / 81; Pulse 73; Resp 18; Pulse Ox 100% on R/A; Pain 3/10; aa1 22:18 BP 107 / 84; Pulse 75; Resp 16; Temp 98.2; Pulse Ox 99% on R/A; Pain 4/10; aa1 19:39 Body Mass Index 24.13 (65.77 kg, 165.10 cm) ak1 ED Course: 19:32 Patient arrived in ED. ag3 19:37 Triage completed. ak1 19:39 Arm band placed on Patient placed in an exam room, on a stretcher, Patient notified of ak1 wait time. 19:55 Patient has correct armband on for positive identification. Bed in low position. Call aa1 light in reach. Pulse ox on. NIBP on. 19:56 Sukhi Kulkarni PA is PHCP. jr8 19:56 Jaleel Palacio MD is Attending Physician. jr8 20:00 Leslie Mcnamara RN is Primary Nurse. aa1 20:34 Eye irrigation of both eyes w/ Monique lens IV tubing with 1 liter normal saline, aa1 Patient tolerated well. 22:15 Adry Yeh MD is Referral Physician. jr8 22:18 No provider procedures requiring assistance completed. Patient did not have IV access aa1 during this emergency room visit. Administered Medications: 20:32 Drug: Tetracaine Drops 0.5 % 1 drops Route: Ophthalmic; Site: both eyes; aa1 20:34 Drug: NS 0.9% 1000 ml Route: IV; Rate: 1 bolus; Site: Other; aa1 21:05 Follow up: IV Status: Completed infusion; IV Intake: 1000ml aa1 20:34 Drug: NS 0.9% 1000 ml Route: IV; Rate: 1 bolus; Site: Other; aa1 21:05 Follow up: IV Status: Completed infusion; IV Intake: 1000ml aa1 Intake: 21:05 IV: 1000ml; Total: 1000ml. aa1 21:05 IV: 1000ml; Total: 2000ml. aa1 Outcome: 22:16 Discharge ordered by . jr8 22:18 Discharged to home ambulatory, with friend. aa1 22:18 Condition: good 22:18 Discharge instructions given to patient, Instructed on discharge instructions, follow up and referral plans. medication usage, Demonstrated understanding of instructions, follow-up care, medications, Prescriptions given X 1. 22:20 Patient left the ED. aa1 Signatures: Leslie Mcnamara RN RN aa1 Sukhi Kulkarni PA PA jr8 Lauryn Gonzalez RN RN ak1 Dia Callejas 3
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
[2019-04-04 03:23] VITALS: TEMP 98.4
[2019-04-04 03:26] VITALS: BP 121/81; O2SAT 100
== END 2019-04-03 22:20 | disposition home or self-care (01) ==
LOC: ER 19:29
DX: T54.1X1A Toxic effect of other corrosive organic compounds, accidental (unintentional), initial encounter (principal); H10.213 Acute toxic conjunctivitis, bilateral; K21.9 Gastro-esophageal reflux disease without esophagitis; Y92.9 Unspecified place or not applicable; Z88.6 Allergy status to analgesic agent
CPT/HCPCS: 96360; 99284; J7030

== ENCOUNTER 2019-05-20 11:05 | Day surgery (SDC) | payer OTHER ==
[2019-05-20] MEDS ORDERED: Zoledronic Acid/Mannitol/Water 5 MG/100 ML INFUS.BOT IV ONE (11:15)
[2019-05-20 11:58] VITALS: BP 123/76; TEMP 98; O2SAT 100; BMI 22.8
== END 2019-05-20 12:18 | disposition home or self-care (01) ==
LOC: DS 11:05
PROVIDERS: ATTEND Clinical Nurse Specialist Women's Health
DX: M81.8 Other osteoporosis without current pathological fracture (principal)
CPT/HCPCS: 96365; J3489

== ENCOUNTER 2019-08-24 17:04 | Emergency (ER) | payer OTHER ==
--- OUTSIDE RECORDS SUMMARY | 2019-08-24 17:07 | XMS REPORT ---
:1960 [facility] Address [address] [place] [address] Dr. [place] [address] [place] [id number] Care Team Providers Name Role Phone Unavailable Unavailable Unavailable Problems This patient has no known problems. Allergies, Adverse Reactions, Alerts This patient has no known allergies or adverse reactions. Medications This patient has no known medications.
[2019-08-24] MEDS ORDERED: ONDANSETRON 4 MG/2 ML VIAL ONE (17:22)
[2019-08-24] MEDS ORDERED: MORPHINE 4 MG/ML SYR ONE (17:22)
[2019-08-24 17:36] LABS: Absolute Lymphocytes (CBC) 1.5 K/uL (0.7-4.9); Basophils % 0.3 % (0-1.3); Hematocrit 41.1 % (36.0-45.0); Lymphocytes % 15.8 % (15.3-44.8); MPV 7.8 fL (7.6-11.3); RBC Red Blood Cell Count 4.25 M/uL (3.86-4.86)
[2019-08-24 18:01] LABS: ALT/SGPT 17 U/L (12-78); AST/SGOT 15 U/L (15-37); Albumin 4.2 g/dL (3.4-5.0); Alkaline Phosphatase 61 U/L (45-117); BUN Blood Urea Nitrogen 11 mg/dL (7-18); Bicarbonate 26 mmol/L (21-32); Bilirubin Total 0.5 mg/dL (0.2-1.0); Glucose Level 97 mg/dL (74-106); Potassium 3.5 mmol/L (3.5-5.1); Protein, Total 7.4 g/dL (6.4-8.2); Sodium Level 142 mmol/L (136-145)
--- NOTE | 2019-08-24 18:13 | RAD REPORT ---
EXAM DESCRIPTION: RAD - Pelvis - 08/24/2019 5:49 pm CLINICAL HISTORY: PAIN COMPARISON: Pelvis Wo Cont dated 07/28/2017 TECHNIQUE: AP imaging of the pelvis was obtained. FINDINGS: No pelvic fracture or destructive process. Surgical hardware in the proximal left femur. N o acute hip joint finding. No suspicious soft tissue finding. IMPRESSION: Negative pelvis examination for acute finding.
--- NOTE | 2019-08-24 18:14 | RAD REPORT ---
EXAM DESCRIPTION: RAD - Hip Left 2 View - 08/24/2019 5:49 pm CLINICAL HISTORY: Hip pain, trauma COMPARISON: June 2017 FINDINGS: AP and frogleg views of the left hip were obtained. There is no fracture or dislocation. N o acute or destructive bony process seen. Surgical hardware present in the proximal left femur simil ar to comparison. No soft tissue abnormality. IMPRESSION: Negative left hip examination for acute or significant findings.
--- NOTE | 2019-08-24 18:15 | RAD REPORT ---
EXAM DESCRIPTION: RAD - Femur Left - 08/24/2019 5:50 pm CLINICAL HISTORY: Leg pain, trauma COMPARISON: June 2017 FINDINGS: No fracture is identified. There is no dislocation or periosteal reaction noted. No acute or suspicious bony finding. Surgical hardware in the proximal left femur noted and unchanged. Mild m edial compartment knee joint degenerative change. No suspicious soft tissue finding. IMPRESSION: Negative left femur for acute finding.
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
[2019-08-24 19:44] VITALS: BP 150/78; TEMP 98.6; O2SAT 99
== END 2019-08-24 19:18 | disposition home or self-care (01) ==
LOC: ER 17:04
DX: M25.552 Pain in left hip (principal); W18.00XA Striking against unspecified object with subsequent fall, initial encounter; Y93.9 Activity, unspecified; Y92.9 Unspecified place or not applicable; Z88.1 Allergy status to other antibiotic agents; Z88.5 Allergy status to narcotic agent; Z88.6 Allergy status to analgesic agent; I48.91 Unspecified atrial fibrillation; J45.909 Unspecified asthma, uncomplicated; E78.00 Pure hypercholesterolemia, unspecified; F41.9 Anxiety disorder, unspecified
CPT/HCPCS: 85025; 36415; 80053; 72170; 73502; 73552; 96375; 96374; 99284; J2405

== ENCOUNTER 2020-01-09 17:10 | Emergency (ER) | payer OTHER ==
--- OUTSIDE RECORDS SUMMARY | 2020-01-09 17:26 | XMS REPORT | Continuity of Care Document ---
:1960 Author Organization [employer] Care Team Providers Name Role Phone [employer] Unavailable Un available Problems Problem Status Onset Classification Date Comments Sourc e Date Reported Spinal cord Resolved Problem 01/15/2019 [facility] (disorder) LUMBAR PAIN Active [facility] Medications Medication Details Route Status Patient Ordering Order Source Instructions Provider Date Sulfamethoxazole 1 tab, PO, No 800 MG / BID, X 14 Longer 018 Medical Trimethoprim 160 MG day, # 28 Active Gr oup Oral Tablet tab, 0 [Bactrim] Refill(s), Pharmacy: [facility] Prilosec PO, Daily, Active 0 Refill(s) 018 [facility] Group Ambien PO, Active Bedtime, 0 018 Medical Refill(s) Group Soma PO, QID, 0 Active Refill(s) 018 Medical Group Tramadol 50 mg, PO, Active Q4-6H, PRN 018 Medical Pain, # 20 Group tab, 0 Refill(s) Allergies, Adverse Reactions, Alerts Substance Category Reaction Severity Reaction Status Date Comments S ource type Reported codeine Assertion Drug Active allergy [facility] ibuprofen Assertion Drug Active allergy [facility] Levaquin Assertion Drug Active allergy [facility] NSAIDs Assertion Drug Active allergy Medical Group Immunizations No Data Provided for This Section Results No Data Provided for This Section Pathology Reports No Data Provided for This Section Diagnostic Reports No Data Provided for This Section Consultation Notes No Data Provided for This Section Discharge Summaries No Data Provided for This Section History and Physicals No Data Provided for This Section Vital Signs Vital Sign Value Date Comments Source Height 165.1 cm 06/27/2018 Medical Gr[facility] p Weight 69.233 06/27/2018 [facility] p BMI Calculated 25.4 06/27/2018 Medical Gr oup Heart Rate 92 06/27/2018 Medical Gr[facility] p Temperature Oral (F) 97.9 F 06/27/2018 Medi dnaiel Group Systolic (mm Hg) 121 06/27/2018 Medical Group Diastolic (mm Hg) 80 06/27/2018 Medical Group Encounters Location Location Encounter Encounter Reason Attending ADM DC Stat us Source Details Type Number For Provider Date Date Visit Outpatient [id number] [facility] 06/27 Act [facility] [id number] [facility] 06/27 06/28 Care [facility] Cho Procedures Procedure Code Date Perfomer Comments Source Cholecystectomy [id number] [facility] Hip joint operations [id number] [facility] edical Group Assessment and Plan No Data Provided for This Section Plan of Care No Data Provided for This Section Social History Social History Date Source Social History TypeResponse 06/27/2018 [facility]oup Smoking Status Never smoker; Exposure to Tobacco Smoke None; Cigarette Smoking Last 365 Days No; Reg Smoking Cessation Counseling No entered on: 06/27/18 Family History No Data Provided for This Section Advance Directives No Data Provided for This Section Functional Status No Data Provided for This Section
--- OUTSIDE RECORDS SUMMARY | 2020-01-09 17:26 | XMS REPORT | Clinical Summary ---
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 2 Activ e 100-50 mcg/dose 7 DISKUS carisoprodol TAKE ONE (1) 1 Acti ve (SOMA) 350 MG TABLET(S) BY 7 tablet MOUTH TWICE A DAY NEEDED. OSPHENA 60 mg TAKE ONE (1) 0 Act shaylee tablet TABLET(S) BY 7 MOUTH ONCE A DAY WITH FOOD. rosuvastatin TAKE ONE (1) 3 Acti ve (CRESTOR) 10 MG TABLET(S) BY 7 tablet [...] ONCE A DAY. nusinersen by intrathecal 0 Acti ve sodium/PF route every 4 (SPINRAZA, PF, (four) months. IT) zoledronic Infuse into a 0 Activ e acid/mannitol-lashay venous catheter er (RECLAST IV) once. colestipol Take 1 g by mouth 1 A ctive (COLESTID) 1 gram daily. 9 tablet busPIRone Take 5 mg by 1 Active (BUSPAR) 5 MG mouth 2 (two) 9 tablet times a day. alendronate TAKE ONE (1) 2 03/14/20 Disco ntinued (FOSAMAX) 35 MG TABLET(S) BY 7 19 ( Med List tablet MOUTH ONCE Cleanup) WEEKLY. 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) 12/24/2019 Travel 12/23/2019 Travel 12/23/2019 Telephone Radiology Saskia Joyner RN 12/19/2019 Travel 11/26/2019 Orders Only Neurology Kat Chua RN 11/26/2019 Orders Only Neurology Fidelina Chua RN atrophy type I II (HCC) (Primary Dx) 08/13/2019 Hospital Encounter Radiology Tyree Holder MD atrophy type II I (HCC) (Primary Dx) 08/11/2019 Telephone Neurology Yassine Sears, LM 08/05/2019 Telephone Neurology Kat Chua RN 08/05/2019 Telephone Radiology Saskia Joyner RN 08/05/2019 Orders Only Neurology Harshil, Spinal muscular atrophy type III (HCC) (Primary Dx); Kat Mills RN Pre-procedure lab exam 07/25/2019 Telephone Neurology Kat Chua RN 07/15/2019 Telephone Neurology Miriam Gregg MD 07/11/2019 Office Visit Physical Therapy Tyree Holder SMA (spi nal muscular atrophy) (HCC); MD Marino At high risk for injury related to fall Shaye Clinton, OT 07/11/2019 Office Visit Neurology Cristino, Spinal muscular atrophy type III (HCC) (Primary Dx); MD Miriam At high risk fo r falls 06/12/2019 Telephone Occupational Therapy Shaye Clinton, OT 06/12/2019 Telephone Neurology Miriam Gregg MD 06/09/2019 Orders Only Neurology Kat Chua RN 06/03/2019 Telephone Neurology Yassine Sears RN 04/23/2019 Orders Only Neurology Ariel, Dione, Spinal muscul ar MA atrophy type II I (HCC) (Primary Dx) 04/14/2019 Documentation ADMIN Henna Ward 04/11/2019 Hospital Encounter Radiology Tyree Holder MD 04/09/2019 Hospital Encounter Radiology Tyree Holder SMA (orlando Pichardo MD muscular atroph y) (HCC) 04/04/2019 Orders Only Neurology George, Dione, SMA (spinal MA muscular atroph y) (HCC) (Primary Dx) 04/04/2019 Orders Only Neurology George, Dione, MA 04/02/2019 Orders Only Neurology George, Dione, SMA (spinal m uscular atrophy) (HCC) (Primary Dx); MA At high risk fo r injury related to fall 04/02/2019 Orders Only Neurology George, Dione, SMA (spinal m uscular atrophy) (HCC) (Primary Dx); MA At high risk fo r injury related to fall 03/26/2019 Hospital Encounter Radiology Tyree Holder SMA (orlando Pichardo MD muscular atroph y) ([facility]) 03/26/2019 Lab Lab Tyree Holder Aftercare; MD Marino SMA (spinal mus cular atrophy) ([facility]) 03/26/2019 Hospital Encounter Pulmonology Tyree Holder SMA (orlando Pichardo MD muscular atroph y) ([facility]) 03/19/2019 Telephone Neurology Henna Sanchez RN 03/14/2019 Office Visit Neurology Tyree Holder SMA (spinal muscular atrophy) ([facility]) (Primary Dx); MD Marino Aftercare; At high risk fo r injury related to fall after 01/08/2019 Family History Medical History Relation Name Comments [...] Travel End No recent travel history available. COVID-19 Exposure Response Date Recorded In the last month, have you been in contact with No / Unsure 01/02/2020 1:12 PM CDT someone who was confirmed or suspected to have Coronavirus / COVID-19? Last Filed Vital Signs Vital Sign Reading Time Taken Comments Blood Pressure 103/69 01/02/2020 1:14 PM CDT Pulse 86 01/02/2020 1:14 PM CDT Temperature 36.8 C (98.2 F) 01/02/2020 1:14 PM CDT Respiratory Rate 16 12/24/2019 11:15 AM CDT Oxygen Saturation 97% 12/24/2019 11:15 AM CDT Inhaled Oxygen Concentration - - Weight 64 kg (141 lb 1.6 oz) 01/02/2020 1:14 PM CDT Height 162.6 cm (5' 4") 01/02/2020 1:14 PM CDT Body Mass Index 24.22 01/02/2020 1:14 PM CDT Plan of Treatment Health Maintenance Due Date Last Done Comments CERVICAL CANCER SCREENING 1981 BREAST CANCER SCREENING 2010 COLONOSCOPY SCREENING 2010 SHINGLES VACCINES (#1) 2010 INFLUENZA VACCINE 02/21/2020 Procedures Procedure Name Priority Date/Time Associated Comments Diagnosis IR LUMBAR PUNCTURE Routine 12/24/2019 10:45 Spinal muscular Re sults for this AM CDT atrophy type III procedure a re in ([facility]) the results section. PROTEIN, URINE, RANDOM Routine 12/24/2019 9:45 R esults for this AM CDT procedure are i n the results section. ESTIMATED GFR STAT 12/24/2019 9:30 Results fo r this AM CDT procedure are i n the results section. PARTIAL THROMBOPLASTIN STAT 12/24/2019 9:30 R esults for this TIME (PTT) AM CDT procedure are i n the results section. PROTHROMBIN TIME WITH STAT 12/24/2019 9:30 Re sults for this INR AM CDT procedure are i n the results section. BASIC METABOLIC PANEL STAT 12/24/2019 9:30 Re sults for this AM CDT procedure are i n the results section. HC COMPLETE BLD COUNT STAT 12/24/2019 9:30 Re sults for this W/AUTO DIFF AM CDT procedure are i n the results section. 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 IR LUMBAR PUNCTURE Routine 04/11/2019 2:08 SMA (spinal Resul ts for this PM CDT muscular atrophy) procedure are in ([facility]) the results section. CT LUMBAR SPINE WO Routine 03/26/2019 4:33 SMA (spinal Resul ts for this CONTRAST PM CDT muscular atrophy) procedure are in ([facility]) the results section. URINALYSIS, AUTOMATED Routine 03/26/2019 3:19 Re sults for this WITH MICROSCOPY PM CDT procedure ar e in the results section. ESTIMATED GFR Routine 03/26/2019 3:12 Results fo r this PM CDT procedure are i n the results section. PARTIAL THROMBOPLASTIN Routine 03/26/2019 3:12 Aftercare R esults for this TIME (PTT) PM CDT procedure are i n the results section. HC COMPLETE BLD COUNT Routine 03/26/2019 3:12 SMA (spinal Re sults for this W/AUTO DIFF PM CDT muscular atrophy) procedure are in ([facility]) the results section. COMPREHENSIVE METABOLIC Routine 03/26/2019 3:12 SMA (spinal Results for this PANEL PM CDT muscular atrophy) procedure are in ([facility]) the results section. PROTHROMBIN TIME WITH Routine 03/26/2019 3:12 Aftercare Re sults for this INR PM CDT procedure are i n the results section. SPIROMETRY, MIPS/MEPS Routine 03/26/2019 1:54 SMA (spinal Re sults for this PM CDT muscular atrophy) procedure are in (HCC) the results section. after 01/08/2019 Results IR Lumbar Puncture by Radiology (12/24/2019 10:45 AM CDT)Only the most recent of 3 resultswithin the time period is included. 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 Under fluoroscopic guidance a 22-gauge spinal needle w as introduced into the spinal canal at the L3-4 level. Total fluoroscopy time was 2 seconds. On e digital image was obtained. No immediate complications were noted. FINDINGS: Initially blood-tinged CSF with rapid edwin ring was identified. A total of 6 mL of clear CSF was removed a nd sent to lab for studies as ordered. Nusinersen 12 mg was infused. IMPRESSION: Traumatic lumbar puncture with medicatio n infusion as described above. 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 Under fluoroscopic guidance a 22-gauge s dominique needle was introduced into the spinal canal at the L3-4 level. Total fluoroscopy time was 2 seconds. On e digital image was obtained. No immediate complications were noted. FINDINGS: Initially blood-tinged CSF wi th rapid clearing was identified. A total of 6 mL of clear CSF was removed and sent to lab for studies as ordered. Nusinersen 12 mg was infused. IMPRESSION: Traumatic lumbar puncture w ith medication infusion as described above. [facility]-[id number] Performing Organization Address City/State/Zipcode Phone Number [facility] [address] [place] [address] Protein, urine, random (12/24/2019 9:45 AM CDT) Pathologist [facility] nature Protein, urine random 8 mg/dL [facility] Specimen Urine Performing Organization Address [facility] Phone Number [facility] DEPARTMENT OF PATHOLOGY AND [address] [place] [address] [phone] [address] Estimated GFR (12/24/2019 9:30 AM CDT)Only the most recent of2 resultswithin the time period is included. Pathologist [facility] Estimated GFR >=90 mL/min/1.73 [facility] Comment: [address] Catergory Units Interpretation G1 >=90 Normal or high G2 60-89 Mildly decreased G3a 45-59 Mildly to moderately decreas ed G3b 30-44 Moderately to severely decre ased G4 15-29 Severely decreased G5 <15 Kidney failure The eGFR was calculated using the Chronic Kidney Disea se Epidemiology Collaboration (CKD-EPI) equation. Interpretation is based on recommendations of the National Kidney Foundation-Kidney Disease Outcomes Asaf lity Initiative (NKF-KDOQI) published in 2014. Specimen Performing Organization Address [facility] Hospital[facility] Phone Number [facility] DEPARTMENT OF PATHOLOGY AND [address] [place] [address] [phone] [address] Partial thromboplastin time, activated (12/24/2019 9:30 AM CDT)Only the most recent of2 resultswithin the time period is included. [facility] PTT 28.5 23.0 - 36.0 [facility] Comment: [facility] PTT therapeutic range for unfractionated heparin is 61.0-112.0 seconds which corresponds to Anti-Xa 0.3-0.7 U/ml. Specimen Blood Performing Organization Address [facility]/Zipcode Phone Number [facility] DEPARTMENT OF PATHOLOGY AND [address] [place] [address] [phone] [address] Prothrombin time with INR (12/24/2019 9:30 AM CDT)Only the most recent of2 resultswithin the time period is included. [facility] Prothrombin time 13.5 11.5 - 14.5 [facility] INR 1.0 [place] Comment: FAITH The International Normalized Ratio (INR) is a [facility] monitoring tool for patients who are stable on oral anticoagulant therapy. An INR of 2.0-3.0 is suggested for deep vein thrombosis/pulmonary embolism. Specimen Blood Performing Organization Address City/[facility]/Zipcode Phone Number [facility] DEPARTMENT OF PATHOLOGY AND [address] [place] [address] [phone] [address] CBC with platelet and differential (12/24/2019 9:30 AM CDT)Only the most recent of2 resultswithin the time period is included. WBC 8.26 4.50 - 11.00 [facility] k/uL HOSPITAL RBC 3.88 (L) 4.20 - 5.50 [facility] m/[facility] HGB 12.2 12.0 - 16.0 [facility]/dL [facility] HCT 37.8 37.0 - 47.0 % [facility] MCV 97.4 82.0 - 100.0 [facility] MCH 31.4 27.0 - 34.0 pg [facility] MCHC 32.3 31.0 - 37.0 [facility] RDW - SD 46.8 37.0 - 55.0 fL [facility] MPV 9.7 8.8 - 13.2 fL [facility] Platelet count 189 150 - 400 k/uL [facility] Nucleated RBC 0.00 /100 WBC [facility] Neutrophils 66.6 39.0 - 69.0 % [facility] Lymphocytes 25.7 25.0 - 45.0 % [facility] Monocytes 5.3 0.0 - 10.0 % [facility] Eosinophils 1.7 0.0 - 5.0 % [facility] Basophils 0.5 0.0 - 1.0 % [facility] Immature granulocytes 0.2Comment: 0.0 - 1.0 % [facility] "[facility] granulocytes" (promyelocytes , myelocytes, metamyelocytes ) Specimen Performing Organization Address City/[facility]/Zipcode Phone Number [facility] DEPARTMENT OF PATHOLOGY AND [address] [place], [place] [phone] [address] Basic metabolic panel (12/24/2019 9:30 AM CDT) Pathologist Sig nature Sodium 142 135 - 148 mEq/L [facility] Potassium 3.6 3.5 - 5.0 mEq/L [facility] Chloride 105 98 - 112 mEq/L [facility] CO2 25 24 - 31 mEq/L [facility] Anion gap 12@ANIO 7 - 15 mEq/L [facility] BUN 7 6 - 20 mg/dL [facility] Creatinine 0.39 (L) 0.50 - 0.90 mg/dL [facility] Glucose 82 65 - 99 mg/dL [facility] Calcium 8.9 8.3 - 10.2 mg/dL [facility] Specimen Performing Organization Address City/State/Zipcode Phone Number [facility] DEPARTMENT OF PATHOLOGY AND [address] [place] [phone] GENOMIC MEDICINE [facility] [address] [place] [address] CT Lumbar Spine Wo Contrast (03/26/2019 4:33 PM CDT) Specimen Narrative Performed At EXAMINATION: CT LUMBAR SPINE WO CONTRA ST [facility] CLINICAL HISTORY: G12.9 Spinal muscular atrophy un specified, SMA spinraza injection imaging for LP COMPARISON: None. TECHNIQUE: CT imaging was performed with iterative rec onstruction technique and/or automated exposure cont rol to reduce radiation dose. FINDINGS: 5 nonrib-bearing lumbar type vertebrae. Lumbar spine alignment is within normal limits. No fractures or aggressive bony lesions. Moderate disc space narrowing and endplate degenerativ e changes at L4-5 and to lesser degree at L5-S1. At L5-S1, facet arthropathy and osteophytosis causes m oderate narrowing of the left foramen. No central canal narrowing. Small posterior disc bulge at L3-4. Mild degenerative changes of bilateral s acroiliac joints. There is fatty atrophy of the paraspinal musculature. IMPRESSION: No acute bony abnormalities. Mild multilevel degenerative changes wor st at left L5-S1. No significant fusion of the posterior elements. Lumba r puncture can be done with fluoroscopic guidance. [id number] Procedure Note Interface, Radiology Results Incoming - [...] bony lesions. Moderate disc space narrowing and endpla te degenerative changes at L4-5 and to lesser degree at L5-S1. At L5-S1, facet arthropathy and osteophy tosis causes moderate narrowing of the left foramen. No central canal narrowing. Small posterior disc bulge at L3-4. Mild degenerative changes of bilateral s acroiliac joints. There is fatty atrophy of the paraspinal musculature. IMPRESSION: No acute bony abnormalities. Mild multilevel degenerative changes wor st at left L5-S1. No significant fusion of the posterior e lements. Lumbar puncture can be done with fluoroscopic guidance. [facility]-[id number] Performing Organization Address City/[facility] Phone Number [facility] [address] [place] [phone] Urinalysis, automated with microscopy (03/26/2019 3:19 PM CDT) Pathologist Sig nature Color, UA Straw [facility] Appearance, UA Clear [facility] Specific gravity, UA 1.008 1.001 - 1.035 [facility] pH, UA 7.0 5.0 - 8.5 [facility] Protein, UA Negative Negative [facility] Glucose, UA Negative Negative [facility] Ketones, UA Trace (A) Negative [facility] Bilirubin, UA Negative Negative [facility] Blood, UA Negative Negative [facility] Nitrite, UA Negative Negative [facility] Urobilinogen, UA <2.0 <2.0 [facility] Leukocyte esterase, Trace (A) Negative [facility] Epithelial cells, UA 1 /HPF [facility] WBC, UA 2 0 - 4 /HPF [facility] RBC, UA 1 0 - 5 /HPF [facility] Bacteria, UA Few None seen [facility] Yeast, UA None seen [facility] Yeast with None seen [facility] pseudohyphae, HOSPITAL Specimen Urine Performing Organization Address City/[facility] Phone Number [facility] DEPARTMENT OF PATHOLOGY AND [address] [place] [phone] GENOMIC MEDICINE [address] [address] Comprehensive metabolic panel (03/26/2019 3:12 PM CDT) Sodium 140 135 - 148 [facility] mEq/L [facility] Potassium 3.5 3.5 - 5.0 [facility] mEq/L [facility] Chloride 100 98 - 112 [facility] mEq/L [facility] CO2 25 24 - 31 mEq/L [facility] Anion gap 15@ANIO 7 - 15 mEq/L [facility] BUN 7 6 - 20 mg/dL [facility] Creatinine 0.37 (L) 0.50 - 0.90 [facility] mg/dL [facility] Glucose 117 (H) 65 - 99 mg/dL [facility] Calcium 9.4 8.3 - 10.2 [facility] mg/dL [facility] Protein 7.2 6.3 - 8.3 [facility] Comment: g/dL HOSPITAL 4.6-7.0 g/dL 1 week 4.4-7.6 g/dL 7 months-1year 5.1-7.3 g/dL 1-2 years 5.6-7.5 g/dL >3 years 6.0-8.0 g/dL 18-150 6.3-8.3 g/dL Albumin 4.1 3.5 - 5.0 [facility] g/dL [facility] A/G ratio 1.3 0.7 - 3.8 [facility] Alkaline phosphatase 63 35 - 104 U/L [facility] AST 16 10 - 35 U/L [facility] ALT 12 5 - 50 U/L [facility] Total bilirubin 0.5 0.0 - 1.2 [facility] mg/dL [facility] Specimen Plasma specimen Performing Organization Address City/State/Zipcode Phone Number [facility] DEPARTMENT OF PATHOLOGY AND [address] [place], [place] [phone] GENOMIC MEDICINE [address] [address] Spirometry, MIPS/MEPS (03/26/2019 1:54 PM CDT) Pathologist Sig nature FEV1 Pre 2.29 2.10 - 3.31 L [...] % [facility] Specimen Narrative Performed At This result has an attachment that is no t available. 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
--- OUTSIDE RECORDS SUMMARY | 2020-01-09 17:28 | XMS REPORT | Summary of Care ---
:1960 Author Organization [facility] Address [address] [place] [id number] Care Team Providers Name Role Phone Edgard Rowley Primary Care Provider Reason for Visit Reason Comments Follow-up right shoulder pain requesti ng injection Shoulder Pain right shoulder for 6 weeks (Routine) Status Reason Specialty Diagnoses / Procedures Referred By Clinton eferred To Contact Contact Closed PA-PHYSICIAN Diagnoses NCEP / Right Shoulder Pain - Wants injection Philippe Ramos Baker, Br etdaja TIPPLE REPAIRER / Procedures CONSULT/REFERRAL ORTHOPAEDIC SURGERY VT METHYLPREDNISOLONE 80 MG INJ VT ARTHROCENTESIS ASPIR&/INJ MAJOR JT/BURSA W/O US FOLLOW-UP VISIT PAC S, PAC Orthopedic [address] [facility] [address] [place], [place] Phone: [phone] Phone: Encounter Details Date Type Department Care Team Description 11/28/2019 Office Visit [facility] Orthopaedic Philippe Ramos R ight shoulder pain, Surgery- [place] PAC unspecified chronicity [address] (Primary Dx) [address] [place] [address] [place] [phone] Allergies Active Allergy Reactions Severity Noted Date Comments Codeine Unknown - See High 05/10/2015 STOMACH gi ISS UES comments, Itching Other reac tion(s): Vomiting Hydrocodone Nausea and/or 08/09/2017 Vomiting Ibuprofen Unknown - See 08/09/2017 comments Levofloxacin Unknown - See Medium 08/09/2017 comments, Other - See comments Nsaids (Non-Steroidal Unknown - See High 02/17/2019 Anti-Inflammatory Drug) comments, Nausea and/or Vomiting documented as of this encounter (statuses as of 12/01/2019) Medications Medication Sig Dispensed Refills Start Date End Date Status zolpidem (AMBIEN) 10 Take 10 mg by 0 Active mg tablet mouth at bedtime as needed for Insomnia. Tramadol (RYBIX ODT) Take by mouth. 0 Active 50 mg TbDL tiZANidine (ZANAFLEX) Take 4 mg by mouth 0 Active 4 mg capsule 3 (three) times daily. omeprazole (PRILOSEC) Take 20 mg by 0 Active 20 mg capsule mouth daily. pravastatin Take 20 mg by 0 Acti ve (PRAVACHOL) 20 mg mouth at bedtime. tablet carisoprodol (SOMA) Take 350 mg by 0 Active 350 mg tablet mouth 4 (four) times daily. rosuvastatin (CRESTOR) Take 20 mg by 0 Active 20 mg tablet mouth at bedtime. lidocaine 5 % ointment 0 03/07/2016 Active OSPHENA 60 mg tablet 0 04/03/2016 Active PREMARIN 0.625 mg/gram 0 05/16/2016 Active cream ADVAIR DISKUS 100-50 0 06/02/2016 Active mcg/dose inhalation disk Diclofenac Sodium Apply 2mg - 4mg to 100 g 1 02/17/2019 Active (VOLTAREN) 1 % affected area four gelIndications: Right times daily shoulder pain, unspecified chronicity Hospital, Clinic, or Ordered Dose Route Frequency Start Date End D ate Status Other Facility Administered Medication triamcinolone 40 mg Intra-articu ONCE 11/28/2019 11/28/2019 E nded acetonide (KENALOG) injection 40 mgIndications: Right shoulder pain, unspecified chronicity documented as of this encounter (statuses as of 12/01/2019) Active Problems Problem Noted Date Knee pain, acute, left 05/10/2015 documented as of this encounter (statuses as of 12/01/2019) Social History Tobacco Use Types Packs/Day Years Used Date Never Smoker Smokeless Tobacco: Never Used Tobacco Cessation: Counseling Given: Yes Alcohol Use Drinks/Week oz/Week Comments No 0 Standard drinks or equivalent 0.0 Sex Assigned at Date Recorded Not on file Job Start Date Occupation Industry Not on file Not on file Not on file Travel History Travel Start Travel End No recent travel history available. documented as of this encounter Last Filed Vital Signs Vital Sign Reading Time Taken Comments Blood Pressure 109/76 11/28/2019 10:58 AM CDT Pulse - - Temperature - - Respiratory Rate - - Oxygen Saturation - - Inhaled Oxygen Concentration - - Weight 65.8 kg (145 lb) 11/28/2019 10:58 AM CDT Height 165.1 cm (5' 5") 11/28/2019 10:58 AM CDT Body Mass Index 24.13 11/28/2019 10:58 AM CDT documented in this encounter Progress Notes Philippe Ramos, PAC - 11/28/2019 10:30 AM CDT Cc: Chief Complaint Patient presents with Follow-up right shoulder pain requesting injection Shoulder Pain right shoulder for 6 weeks Amena Smalls is a 59 year old female. She has had chronic right shoulder pain that has required an intermittent cortisone injection from time to time she needs to bear a lot of load on her hands as she uses a walker for mobility her last cortisone injection was May 2019 she would like a cortisone injection today we will be happy to co mply. Right shoulder pain-6 weeks/ requesting injection Allergies Amena is allergic to codeine; nsaids (non-steroidal anti-inflammatory drug); levofloxacin; hydrocodone; and ibuprofen. Medications Outpatient Medications Prior to Visit Medication Sig Dispense Refill Diclofenac Sodium (VOLTAREN) 1 % gel Apply 2mg - 4mg to affected area four times daily 100 g 1 ADVAIR DISKUS 100-50 mcg/dose inhalation disk PREMARIN 0.625 mg/gram cream OSPHENA 60 mg tablet lidocaine 5 % ointment carisoprodol (SOMA) 350 mg tablet Take 350 mg by mouth 4 (four) times daily. rosuvastatin (CRESTOR) 20 mg tablet Take 20 mg by mouth at bedtime. omeprazole (PRILOSEC) 20 mg capsule Take 20 mg by mouth daily. pravastatin (PRAVACHOL) 20 mg tablet Take 20 mg by mouth at bedtime. tiZANidine (ZANAFLEX) 4 mg capsule Take 4 mg by mouth 3 (three) times daily. Tramadol (RYBIX ODT) 50 mg TbDL Take by mouth. zolpidem (AMBIEN) 10 mg tablet Take 10 mg by mouth at bedtime as needed for Insomnia. No facility-administered medications prior to visit. Histories Past Medical History: Diagnosis Date Back pain Colitis Esophageal reflux Hyperlipidemia Insomnia Knee pain, left Past Surgical History: Procedure Laterality Date ARTHROSCOPIC SHOULDER ROTATOR CUFF REPAIR Left CHOLECYSTECTOMY PELVIS/HIP JOINT SURGERY UNLISTED Left Social History Socioeconomic History Marital status: Spouse name: Not on file Number of children: Not on file Years of education: Not on file Highest education level: Not on file Occupational History Not on file Social Needs Financial resource strain: Not on file Food insecurity: Worry: Not on file Inability: Not on file Transportation needs: Medical: Not on file Non-medical: Not on file Tobacco Use Smoking status: Never Smoker Smokeless tobacco: Never Used Substance and Sexual Activity Alcohol use: No Alcohol/week: 0.0 standard drinks Drug use: No Sexual activity: Never Lifestyle Physical activity: Days per week: Not on file Minutes per session: Not on file Stress: Not on file Relationships Social connections: Talks on phone: Not on file Gets together: Not on file Attends uatsdin service: Not on file Active member of club or organization: Not on file Attends meetings of clubs or organizations: Not on file Relationship status: Not on file Intimate partner violence: Fear of current or ex partner: Not on file Emotionally abused: Not on file Physically abused: Not on file Forced sexual activity: Not on file Other Topics Concern Not on file Social History Narrative Not on file Family History Problem Relation Age of Onset Hypertension Mother Hypertension Father Review of Systems Constitutional: Negative. HENT: Negative. Eyes: Negative. Respiratory: Negative. Breasts: Negative. Cardiovascular: Negative. Gastrointestinal: Negative. Genitourinary: Negative. Musculoskeletal: Positive for joint swelling and myalgias. Skin: Negative. Neurological: Negative. Psychiatric/Behavioral: Negative. Endocrine: Endocrine negative Vital Signs BP 109/76 | Ht 5' 5" (1.651 m) | Wt 145 lb (65.8 kg) | BMI 24.13 kg/m Physical Exam Musculoskeletal: Physical Exam Constitutional: oriented to person, place, and time. appears well-developed and well-nourished. HENT: Head: Normocephalic and atraumatic. Right Ear: External ear normal. Left Ear: External ear normal. Eyes: Conjunctivae are normal. Neck: Normal range of motion. No strabismus Neck supple. Cardiovascular: Normal rate and regular rhythm. Pulmonary/Chest: Normal respiratory rate equal chest rise and fall in no apparent distress Abdominal: Abdomen nondistended nontender Neurological: alert and oriented to person, place, and time. No asymmetry Skin: Skin is warm and dry. Psychiatric: normal mood and affect. behavior is normal. Judgment and thought content normal. Nursing note and vitals reviewed. Right shoulder pain, 180 degree abduction and flexion Assessment/Plan 1. Right shoulder pain, unspecified chronicity triamcinolone acetonide (KENALOG) injection 40 mg Patient received an ultrasound guided injection of 1cc kenalog and 4cc lidocaine to the right shoulder. The patient was examined with ultrasound machine and the posterior injection portal was localized and the skin was indented with a needle. The coracoid was identified anteriorly. The skin was prepped with Betadine and then with alcohol. Ethyl chloride spray was used to provide local anesthesia. The needle was advanced under ultrasound guidance just below the posterior corner of the acromion directed toward the coracoid. 1 cc of Kenalog and 4 cc of 1% lidocaine without epinephrine were injected into the subacromial space. The puncture wound was cleansed with alcohol dried with a sterile 4 x 4 and a sterile Band-Aid was applied. Patient tolerated procedure well. No reactions noted. documented in this encounter Plan of Treatment Health Maintenance Due Date Last Done Comments HEPATITIS C (HCV) SCREEN 1960 DTaP,Tdap,and Td Vaccines (1 1971 - Tdap) PAP SMEAR 1981 Breast Cancer Screening 2000 (MAMMOGRAM) COLONOSCOPY 2010 Zoster Recombinant Vaccine 2010 (SHINGRIX) (1 of 2) INFLUENZA VACCINE (Season 03/23/2020 04/22/2018, Ended) 05/05/2015 PNEUMOCOCCAL 0-64 YEARS Aged Out No longe r eligible based COMBINED SERIES on patient's age to complete this to [facility] documented as of this encounter Results Not on filedocumented in this encounter Visit Diagnoses Diagnosis Right shoulder pain, unspecified chronic ity - Primary documented in this encounter Administered Medications Medication Order MAR Action Action Date Dose Rate Site triamcinolone acetonide Given 11/28/2019 11:36 AM 40 mg Right Shoulder (KENALOG) injection 40 mg CDT 40 mg, Intra-articular, ONCE, 1 dose, Sun11/28/19 at 1215, Routine documented in this encounter Insurance Payer Benefit Plan Subscriber ID Effective Phone Address Typ e / Group Dates MEDICARE MEDICARE PART xxxxxxxxxxx 2015-Katelynn [phone] [address] X Medicare A & B nt [id number] [place] [phone] FOR [id number] 2017-Pres Gunnar herr LIFE ent Supplement (Work) documented as of this encounter
--- OUTSIDE RECORDS SUMMARY | 2020-01-09 17:28 | XMS REPORT | Continuity of Care Document ---
:1960 Author Organization [facility] t Address [address] [place] [address] Dr. [address]. [address] [place] [address] Care Team Providers Name Role Phone Ember Fournier Primary Care Physician Radhames MURRAY Attending Clinician Benedict Sanchez MD Attending Clinician Marino Holder MD Attending Clinician Ar AMATO Attending Clinician Unavailable Dorian Wesley Attending Clinician Harshil AMATO, L Attending Clinician Unavailable Renu AMATO Attending Clinician Unavailable Mary Beth SUMMERS Attending Clinician Unavailable Ariel ROMERO Attending Clinician Unavailable Sylvia Attending Clinician Unavailable Daniel AMATO, L Attending Clinician Unavailable Philippe Chan Attending Clinician Payers Payer Name Policy Policy Number Effective Expiration Source Type Date Date MEDICAREMEDICARE PART xxxxxxxxxxx 2015 Rigoberto Ray AND 00:00:00 [facility] Bxxxxxxxxxxx9- [facility]ICARETRIC[facility] FOR xxxxxxxxx 2016 [place] MCR 00:00:00 [facility] SUPPLEMENTxxxxxxxxx107/2016-PresentMilitar y Problems Condition Condition Condition Status Onset Resolution Last Treating Co mments Source Name Details Category Date Date Treatment Clinician Date At high At high Disease Active [place] risk for risk for 6-12 Method i falls falls 00:00: st 00 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 Method i atrophy atrophy 00: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 00 Spinal Problem Resolve 2019-01-15 Alan lui cord d 13:03:50 l disorder Spinal Natanael n (disorder) cord disorder (disorder) Resolved Problem 01/15/2019 Medical Group LUMBAR Diagnosis Active 2015-07-19 Mem oria PAIN UDU 16:21:00 l MD WILL LUMBAR Corey FAX PAIN UDU MD WILL FAX [facility] Allergies, Adverse Reactions, Alerts Allergy Allergy Status Severity Reaction(s) Onset Inactive Treating Comm ents Source Name Type Date Date Clinician Nsaids Propensi Active Severe Other [place] (Non-Piero ty to 02-17 reaction( Metho di roidal adverse 00:00: s): st Anti-Inf reaction 00 Nausea lammator s to and/or y Drug) drug Vomiting, Unknown - See comments Ibuprofe Propensi Active Other [place] ty to 1-18 reaction( Methodi adverse 00:00: s): st reaction 00 Unknown - s to See drug comments Levoflox Propensi Active Moderate Other [place] ty to 1-18 reaction( Methodi adverse 00:00: s): Other st reaction 00 - See s to comments, drug Unknown - See comments Codeine Propensi Active [place] ty to 12-15 Methodi adverse 00:00: st reaction 00 s to drug codeine codeine Active Memoria l Corey ibuprofe ibuprofe Active Memori a n n l [place] Levaquin Levaquin Active Memori a l Corey NSAIDs NSAIDs Active Memoria l [place] Family History Family Member Diagnosis Comments Start Date Stop Date Source Natural father Hyperlipidemia [place] [facility] Natural father Hypertension [facility] [facility] Natural mother Hypertension [facility] Social History Social Habit Start Date Stop Date Quantity Comments Source Sex Assigned At [place] M ethodist Exposure to Not sure [place] Metho dist SARS-CoV-2 (event) Alcohol intake 2020-01-02 2020-01-02 Current [facility] thodist 00:00:00 00:00:00 non-drinker of alcohol (finding) Smoking Status Start Date Stop Date Source Never smoker [place] Trinhis t Medications Ordered Filled Start Stop Current Ordering Indication Dosage Frequency Signature Comments Components Source Medication Medication Date Date Medication? Clinician (SIG) Name Name heriberto Yes Q120D by [place] sodium/PF 6-12 intratheca Meth carmen (SPINRAZA, 13:15: l route st PF, IT) 47 every 4 (four) months. zoledronic Yes Infuse [place] acid/mannit 6-12 into a Method i ol-water 13:15: venous st (RECLAST 47 catheter IV) once. busPIRone 2018-07 Yes 5mg Q.5D Take 5 mg Wily ston (BUSPAR) 5 1-04 by mouth 2 Met hodi MG tablet 00:00: (two) st 00 times a day. colestipol 2018-07 Yes 1g QD Take 1 g Wily ston (COLESTID) 0-05 by mouth Metho di 1 gram 00:00: daily. st tablet 00 fluticasone Yes USE TWO Wily ston propionate 6-18 (2) Methodi (FLONASE) 00:00: SPRAY(S) st 50 00 INTO EACH mcg/actuati NOSTRIL on nasal ONCE A spray DAY. omeprazole Yes TAKE ONE Wily ston (PriLOSEC) 5-16 (1) Methodi 20 MG 00:00: CAPSULE(S) st capsule 00 BY MOUTH ONCE A DAY. Sulfamethox 2017-07 No 1 tab, PO, Memoria azole 800 2-06 BID, X 14 l MG / 22:04: day, # 28 [place] Trimethopri 00 tab, 0 m 160 MG Refill(s), Oral Tablet Pharmacy: [facility] [place] Prilosec 2017-07 Yes PO, Daily, Mem oria 2-06 0 l 21:55: Refill(s) [place] Ambien 2017-07 Yes PO, Memoria 2-06 Bedtime, 0 l 21:55: Refill(s) Corey Soma 2017-07 Yes PO, QID, 0 Memoria 2-06 Refill(s) l 21:55: Corey 00 Tramadol 2017-07 Yes 50 mg, PO, Mem oria 2-06 Q4-6H, PRN l 21:55: Pain, # 20 Corey 00 tab, 0 Refill(s) zolpidem Yes TAKE ONE [place] (AMBIEN) 10 11-27 (1) Methodi mg tablet 00:00: TABLET(S) st 00 BY MOUTH ONCE A DAY. carisoprodo Yes TAKE ONE Ho olga l (SOMA) 5- (1) Methodi 350 MG 00:00: TABLET(S) st tablet 00 BY MOUTH TWICE A DAY NEEDED. traMADol Yes TAKE ONE [place] (ULTRAM) 50 11-20 (1) Methodi mg tablet 00:00: TABLET(S) st 00 BY MOUTH 3 TO 4 TIMES A DAY NEEDED. ADVAIR Yes as needed. [place] DISKUS 11-18 Methodi 100-50 00:00: st mcg/dose 00 DISKUS alendronate 2019- No TAKE ONE H maria luz (FOSAMAX) 11-18 (1) Methodi 35 MG 00:00: 00:00 TABLET(S) st tablet 00 :00 BY MOUTH ONCE WEEKLY. ZOSTAVAX, 2019- No RECONSTITU H maria luz PF, 19,400 11-08 TE AND Method i unit/0.65 00:00: 00:00 ADMINISTER s t mL 00 :00 0.65ML injection rosuvastati Yes TAKE ONE Rigoberto espinoza n (CRESTOR) -18 (1) Methodi 10 MG 00:00: TABLET(S) st tablet 00 BY MOUTH ONCE A DAY AT BEDTIME. OSPHENA 60 Yes TAKE ONE Wily ston mg tablet 11-01 (1) Methodi 00:00: TABLET(S) st 00 BY MOUTH ONCE A DAY WITH FOOD. doxepin Yes Q24H Apply Leeroy (ZONALON) 5 09-20 topically Met hodi % cream 00:00: daily as st 00 needed. Vital Signs Vital Name Observation Time Observation Value Comments Source Systolic blood 2020-01-02 13:14:00 103 mm[Hg] Isabel n [facility] pressure Diastolic blood 2020-01-02 13:14:00 69 mm[Hg] [place] [facility] pressure Heart rate 2020-01-02 13:14:00 86 /min Leeroy Zeng Body temperature 2020-01-02 13:14:00 36.78 Jacy [place] [facility] Body height 2020-01-02 13:14:00 162.6 cm [facility] Body weight 2020-01-02 13:14:00 64.003 kg [facility] BMI 2020-01-02 13:14:00 24.22 kg/m2 [facility] Respiratory rate 2019-12-24 11:15:00 16 /min Janette Zeng Oxygen saturation in 2019-12-24 11:15:00 97 /min Leeroy Zeng Arterial blood by Pulse oximetry Height 2018-06-27 21:54:00 165.1 cm [facility] Weight 2018-06-27 21:54:00 [facility] BMI Calculated 2018-06-27 21:54:00 Memori al [place] Heart Rate 2018-06-27 21:54:00 [facility] Temperature Oral (F) 2018-06-27 21:54:00 97.9 F [facility] Systolic (mm Hg) 2018-06-27 21:54:00 Alan rial [place] Diastolic (mm Hg) 2018-06-27 21:54:00 Mem orial Corey Procedures Procedure Date / Time Performing Clinician Source Performed IR LUMBAR PUNCTURE 2019-12-24 10:45:57 Tyree Holder PROTEIN, URINE, RANDOM 2019-12-24 09:45:00 Tyree Holder HC COMPLETE BLD COUNT 2019-12-24 09:30:00 Tyree Holder W/AUTO DIFF Mar[place] BASIC METABOLIC PANEL 2019-12-24 09:30:00 Tyree Holder PROTHROMBIN TIME WITH INR 2019-12-24 09:30:00 Tyree Holder PARTIAL THROMBOPLASTIN 2019-12-24 09:30:00 Tyree Holder [facility] TIME (PTT) [place] ESTIMATED GFR 2019-12-24 09:30:00 Tyree Holder IR LUMBAR PUNCTURE 2019-08-13 13:42:57 Tyree Holder IR LUMBAR PUNCTURE 2019-04-11 14:08:[address] LUMBAR SPINE WO 2019-03-26 16:33:05 Jacki, Paige U[facility]ña M ethodist CONTRAST URINALYSIS, AUTOMATED WITH 2019-03-26 15:19:00 Tyree Holder PROTHROMBIN TIME WITH INR 2019-03-26 15:12:00 Paige Echeverria COMPREHENSIVE METABOLIC 2019-03-26 15:12:00 Paige Echeverria [facility] PANEL HC COMPLETE BLD COUNT 2019-03-26 15:12:00 Paige Echeverria W/AUTO DIFF PARTIAL THROMBOPLASTIN 2019-03-26 15:12:00 Paige Echeverria on Synagogue TIME (PTT) ESTIMATED GFR 2019-03-26 15:12:00 Tyree Holder Meth odist Marino SPIROMETRY, MIPS/MEPS 2019-03-26 13:54:28 Tyree Holder Marino Cholecystectomy [facility] Hip joint operations [facility] Plan of Care Planned Activity Planned Date Details Comments Source Future Scheduled 2020-02-21 INFLUENZA VACCINE [facility] n [facility] Test 00:00:00 [code = INFLUENZA VACCINE] Future Scheduled 2010 BREAST CANCER [facility] thodist Test 00:00:00 SCREENING [code = BREAST CANCER SCREENING] Future Scheduled 2010 COLONOSCOPY SCREENING Rigoberto choeberto [facility] Test 00:00:00 [code = COLONOSCOPY SCREENING] Future Scheduled 2010 SHINGLES VACCINES [place] [facility] Test 00:00:00 (#1) [code = SHINGLES VACCINES (#1)] Future Scheduled 1981 Screening for [facility] thodist Test 00:00:00 malignant neoplasm of cervix (procedure) [code = 498235301] Encounters Start End Encounter Admission Attending Care Care Encounter Source Date/Time Date/Time Type Type Clinicians Facility Department ID 2020-01-02 2020-01-02 Outpatient RADHAMES, [facility] [id number] [place] 00:00:00 00:00:00 RASHIDA [address] 2019-12-24 2019-12-24 Outpatient BLUESTEPHANIE [facility] [id number] [place] 00:00:00 00:00:00 TYREE Pisano[address] [facility] [address] 2019-11-28 2019-11-28 Office LUIS Ramos [id number] 10:56:35 11:29:41 Visit [facility] [id number] Surgical [id number] Specialti [id number] Denzel Tiwari 2019-08-13 2019-08-13 Outpatient LJ [facility] [id number] [place] 00:00:00 00:00:00 TYREE Black [facility] 2018-06-27 2018-06-27 Outpatient Le, [facility] [id number] 15:45:00 23:59:59 Felix-Annie 00 T Results Test Description Test Time Test Comments Results Result Comments Source Protein, urine, random 2019-12-24 12:29:25 Test Item Value Reference Range Interpretation Comme nts Protein, urine random (test code = 2888-6) 8 mg/dL [place] [facility] Lumbar Puncture by [id number] 10:51:41Hm Interface, Radiology Results 12/24/2019 10:54 AM CDTEXAMINATION: IR LUMBAR PUNCTURECOMPARISON: NoneCLINICAL HISTORY: G12.1 Other inherited spinal muscular atrophy, Spinraza injectionCOMMENTS: After informed consent was obtained, the patient's back was prepped and tripped in usual sterile fashion and local anesthesia was administered.Under fluoroscopic guidance a 22-gauge spinal needle was introduced into the spinal canal at the L3-4 level.Total fluoroscopy time was 2 seconds. One digital image was obtained.No immediate complications were noted.FINDINGS: Initially blood-tinged CSFwith rapid clearing was identified. A total of 6 mL of clear CSF was removed and sent to lab for studies as ordered.Nusinersen 12 mg was infused.IMPRESSION: Traumatic lumbar puncture with medication infusion as described above.[facility]-[id number] [facility] metabolic [id number] 10:27:37 Test Item Value Reference Range Interpretation Comments Sodium (test code = 2951-2) 142 135- 148 mEq/L Potassium (test code = 2823-3) 3.6 3.5- 5.0 mEq/L Chloride (test code = 2075-0) 105 98- 112 mEq/L CO2 (test code = 8-9) 25 24- 31 mEq/L Anion gap (test code = 83889-6) 12@ANIO 7- 15 mEq/L BUN (test code = 3094-0) 7 mg/dL 6-20 Creatinine (test code = 2160-0) 0.39 mg/dL 0.5-0.9 L Glucose (test code = 2345-7) 82 mg/dL 65-99 Calcium (test code = 59494-2) 8.9 mg/dL 8.3-10.2 Lab Interpretation (test code = Abnormal 74098-8) Leeroy MethodistEstimated [id number] 10:27:33 Test Item Value Reference Range Interpretation Comments Estimated GFR (test >=90 mL/min/1.73 m2 [facility] eagleCarista App Units code = 5488) InterpretationG 1 >=90 Normal or highG2 60-89 Mildly vwhcestqgJ8f 45-59 Mildly to mode rately nknbujumgS2c 30-44 Moderately to severely decreasedG4 15-29 Severely decre asedG5 <15 Kidn ey failureThe eGFR was calculated duy sher the Chronic Kidney Disease Epidemiology Co llaboration (CKD-EPI) equat ion. Interpretation is based on recommendations of the National Kidney Foundation-Kidn ey Disease Outcomes Qualit y Initiative (NKF-KDOQI) pub lished in 2014. Leeroy MethodistPartial thromboplastin time, [id number] 10:02:42 Test Item Value Reference Range Interpretation Comments PTT (test code = 28.5 23.0- 36.0 [place] [address]-8) unfractionated heparin is61.0-112.0 se conds which corresponds to Anti-Xa0.3-0.7 U/ml. Leeroy TsangistProthrombin time with [id number] 10:02:01 Test Item Value Reference Range Interpretation Comments Prothrombin time (test 13.5 11.5- 14.5 sec code = 5902-2) INR (test code = 1.0 The Interna tional 27759-6) Normalized Rati o (INR) is a therapeutic m onitoring tool for patien ts who are stable on oral anticoagulant t herapy. An INR of 2.0-3.0 is suggested for d eep vein thrombosis/pulm onary embolism. Leeroy MethodistCBC with platelet and [id number] 09:44:16 Test Item Value Reference Range Interpretation Comments WBC (test code = 59643-5) 8.26 4.50- 11.00 k/uL RBC (test code = 56886-4) 3.88 m/uL 4.2-5.5 L HGB (test code = 718-7) 12.2 g/dL 12-16 HCT (test code = 4544-3) 37.8 % 37-47 MCV (test code = 787-2) 97.4 fL 82-100 MCH (test code = 785-6) 31.4 pg 27-34 MCHC (test code = 786-4) 32.3 g/dL 31-37 RDW - SD (test code = 46.8 fL 37-55 93902-3) MPV (test code = 00419-1) 9.7 fL 8.8-13.2 Platelet count (test code 189 150- 400 k/uL = 08646-2) Nucleated RBC (test code 0.00 /100 WBC = 14426-5) Neutrophils (test code = 66.6 % 39-69 71405-3) Lymphocytes (test code = 25.7 % 25-45 56097-7) Monocytes (test code = 5.3 % 0-10 61132-9) Eosinophils (test code = 1.7 % 0-5 72759-7) Basophils (test code = 0.5 % 0-1 43888-2) Immature granulocytes 0.2 % 0-1 "Immat ure (test code = 77834-8) granul ocytes" (promyelocytes, myelocytes, metamyelocytes) Lab Interpretation (test Abnormal code = 55228-8) [place] [facility] Wo [id number] 17:10:33Hm Interface, Radiology Results 03/26/2019 5:13 PM CDTEXAMINATION: CT LUMBAR SPINE WO CONTRASTCLINICAL HISTORY: G12.9 Spinal muscular atrophy unspecified, SMA spinraza injection imagingfor LPCOMPARISON: None.TECHNIQUE: CT imaging was performed with iterative reconstruction technique and/or automated exposure control to reduce radiation dose.FINDINGS:5 nonrib-bearing lumbar type verte brae.Lumbar spine alignment is within normal limits.No fractures or aggressive bony lesions.Moderatedisc space narrowing and endplate degenerative changes at L4-5 and to lesser degree at L5-S1.At L5-S1, facet arthropathy and osteophytosis causes moderate narrowing of the left foramen.No central canalnarrowing.Small posterior disc bulge at L3-4.Mild degenerative changes of bilateral sacroiliac joints.There is fatty atrophy of the paraspinal musculature.IMPRESSION:No acute bony abnormalities.Mild multilevel degenerative changes worst at left L5-S1.No significant fusion of the posterior elements. Lumbar puncture can be done with fluoroscopic guidance.[facility]-[id number] MethodistUrinalysis, automated with [id number] 17:00:48 Test Item Value Reference Range Interpretation Comments Color, UA (test code = 5778-6) Straw Appearance, UA (test code = 5767-9) Clear Specific gravity, UA (test code = 1.008 1.001-1.035 5811-5) pH, UA (test code = 5803-2) 7.0 5.0-8.5 Protein, UA (test code = 91497-6) Negative Negative Glucose, UA (test code = 79252-0) Negative Negative Ketones, UA (test code = 2514-8) Trace Negative A Bilirubin, UA (test code = 5770-3) Negative Negative Blood, UA (test code = 5794-3) Negative Negative Nitrite, UA (test code = 5802-4) Negative Negative Urobilinogen, UA (test code = <2.0 <2.0 48764-0) Leukocyte esterase, UA (test code = Trace Negative A 5799-2) Epithelial cells, UA (test code = 1 /HPF 5787-7) WBC, UA (test code = 5821-4) 2 0- 4 /HPF RBC, UA (test code = 90667-0) 1 0- 5 /HPF Bacteria, UA (test code = 36500-1) Few None seen Yeast, UA (test code = 26396-7) None seen Yeast with pseudohyphae, UA (test None seen code = 13403-0) Lab Interpretation (test code = Abnormal 06789-2) [place] MethodistComprehensive metabolic [id number] 16:06:09 Test Item Value Reference Range Interpretation Comments Sodium (test code = 140 135- 148 mEq/L 2951-2) Potassium (test code = 3.5 3.5- 5.0 mEq/L 2823-3) Chloride (test code = 100 98- 112 mEq/L 2075-0) CO2 (test code = 2027-9) 25 24- 31 mEq/L Anion gap (test code = 15@ANIO 7- 15 mEq/L 41951-5) BUN (test code = 3094-0) 7 mg/dL 6-20 Creatinine (test code = 0.37 mg/dL 0.5-0.9 L 2160-0) Glucose (test code = 117 mg/dL 65-99 H 2345-7) Calcium (test code = 9.4 mg/dL 8.3-10.2 49762-7) Protein (test code = 7.2 g/dL 6.3-8.3 2885-2) 4.6-7.0 g/dL 1 week 4.4-7.6 g/dL7 months-1year 5.1-7.3 g/dL 1-2 years 5.6-7.5 g/dL>3 years 6.0-8.0 g/dL18- 150 6.3-8.3 g/dL Albumin (test code = 4.1 g/dL 3.5-5 1751-7) A/G ratio (test code = 1.3 0.7-3.8 1759-0) Alkaline phosphatase 63 U/L 35-104 (test code = 6768-6) AST (test code = 1920-8) 16 U/L 10-35 ALT (test code = 1742-6) 12 U/L 5-50 Total bilirubin (test 0.5 mg/dL 0-1.2 code = 1974-2) Lab Interpretation (test Abnormal code = 03365-3) [place] MethodistSpirometry, [facility]/[id number] 13:54:28 Test Item Value Reference Range Interpretation Comments FEV1 Pre (test code = 5348) 2.29 L 2.1-3.31 FEV1/FVC % Pre (test code = 72 % 68.69-88.28 5361) FVC Pre (test code = 5354) 3.18 L 2.77-4.2 PEF Pre (test code = 5367) 6.32 L/s 4.79-8.32 FEF 25-75% Pre (test code = 1.54 L/s 1.22-3.77 5547) MIP Pre (test code = 5451) 128.72 25.38- 88.47 cmH2O MEP Pre (test code = 5458) 114.62 26.47- 116.41 cmH2O FEV1 Predicted (test code = 2.7 5302) FEV1 LLN (test code = 5347) 2.1 FEV1 % Pre of Predicted (test 84.6 % code = 5308) FVC Predicted (test code = 5307) 3.48 FVC LLN (test code = 5353) 2.77 FVC % Pre of Predicted (test 91.3 % code = 5355) FEV1/FVC % Predicted (test code 78 = 5359) FEV1/FVC % LLN (test code = 69 5360) FEV1/FVC % Pre of Predicted 91.7 % (test code = 5362) FEF 25-75% Predicted (test code 2.49 = 5546) FEF 25-75% LLN (test code = 1.22 5545) FEF 25-75% % Pre of Predicted 61.8 % (test code = 5548) PEF Predicted (test code = 5310) 6.55 PEF LLN (test code = 5366) 4.79 PEF % Pre of Predicted (test 96.4 % code = 5368) MIP Predicted (test code = 5449) 56.92 MIP LLN (test code = 5450) 25.38 MIP % Pre of Predicted (test 226.1 % code = 5452) MEP Predicted (test code = 5456) 71.44 MEP LLN (test code = 5457) 26.47 MEP % Pre of Predicted (test 160.4 % code = 5459) Leeroy Zeng
--- OUTSIDE RECORDS SUMMARY | 2020-01-09 17:28 | XMS REPORT | Summary of Care ---
:1960 Author Organization [facility] Address [address] [place] [id number] Care Team Providers Name Role Phone Edgard Rowley Primary Care Provider Reason for Visit Reason Comments Follow-up right shoulder pain requesti ng injection Shoulder Pain right shoulder for 6 weeks (Routine) Status Reason Specialty Diagnoses / Procedures Referred By Clinton eferred To Contact Contact Closed PA-PHYSICIAN Diagnoses NCEP / Right Shoulder Pain - Wants injection Philippe Ramos Baker, Br etdaja COUPON REDEMPTION CLERK / Procedures CONSULT/REFERRAL ORTHOPAEDIC SURGERY [place] METHYLPREDNISOLONE 80 MG INJ [place] ARTHROCENTESIS ASPIR&/INJ MAJOR JT/BURSA W/O US FOLLOW-UP VISIT PAC S, PAC Orthopedic [address] [facility] [address] [place] Phone: [phone] Phone: Encounter Details Date Type Department Care Team Description 11/28/2019 Office Visit [facility] Orthopaedic Philippe Ramos R ight shoulder pain, Surgery- [place] PAC unspecified chronicity [address] (Primary Dx) [address] [place] [address] [place] [phone] Allergies Active Allergy Reactions Severity Noted [...] file Gets together: Not on file Attends rastafari service: Not on file Active member of [...] on patient's age to complete this to [facility] documented as of this encounter Results Not [...] X Medicare A & B nt [id number] [address]O [id number] FOR [id number] 2017-Pres Gunnar herr LIFE ent Supplement (Work) documented as of this encounter
--- NOTE | 2020-01-09 18:22 | RAD REPORT ---
EXAM DESCRIPTION: RAD - Chest Single View - 01/09/2020 5:56 pm CLINICAL HISTORY: DYSPNEA Chest pain. COMPARISON: Chest Single View dated 10/28/2017; Chest Single View dated 04/04/2016; CHEST SINGLE VIEW d ated 06/22/2015; CHEST SINGLE VIEW dated 02/19/2013 FINDINGS: Portable technique limits examination quality. The lungs are grossly clear. The heart is normal in size. No displaced fractures. IMPRESSION: No acute intrathoracic process suspected.
[2020-01-09 18:27] LABS: Absolute Lymphocytes (CBC) 1.8 K/uL (0.7-4.9); Basophils % 0.3 % (0-1.3); Hematocrit 38.6 % (36.0-45.0); Lymphocytes % 27.1 % (15.3-44.8); MPV 8.3 fL (7.6-11.3); RBC Red Blood Cell Count 4.01 M/uL (3.86-4.86)
[2020-01-09 18:28] LABS: Protime INR 1.06
[2020-01-09 18:54] LABS: ALT/SGPT 22 U/L (12-78); AST/SGOT 17 U/L (15-37); Albumin 3.9 g/dL (3.4-5.0); Alkaline Phosphatase 70 U/L (45-117); BUN Blood Urea Nitrogen 11 mg/dL (7-18); Bicarbonate 27 mmol/L (21-32); Bilirubin Direct < 0.1 mg/dL (0-0.2); Bilirubin Total 0.3 mg/dL (0.2-1.0); Glucose Level 107 mg/dL (74-106); Magnesium 2.1 mg/dL (1.8-2.4); NT PRO-BNP 136 pg/mL (<125); Potassium 3.3 mmol/L (3.5-5.1); Sodium Level 143 mmol/L (136-145); Troponin (Emerg Dept Use Only) < 0.02 ng/mL (0.0-0.045)
--- NOTE | 2020-01-09 19:01 | ER ---
Nurse's Notes [facility] Name: Amena Smalls Age: 59 yrs Sex: Female : 1960 Arrival Date: 01/09/2020 Time: 17:14 Bed 2 Private MD: Diagnosis: Palpitations Presentation: 01/08 17:21 Chief complaint: Patient states: Fast HR and palpitations for several months. States ll1 her home monitor shows runs of v tach rate 130's-140's. + chest pain today. Cannot get a deep breathe. Saw Dr. Mcgrath for same, states holter monitor didn't show anything. Reports palpitation, dizziness with chest pain today. Coronavirus screen: Proceed with normal triage. Patient denies a cough. Patient denies shortness of breath or difficulty breathing. Patient denies measured and/or subjective temperature greater than 100.4F prior to today's visit. Patient denies travel on a cruise ship or to a country the [facility] currently lists as an affected area. Patient denies contact with known and/or suspected case of COVID-19. Ebola Screen: Patient denies travel to an Ebola-affected area in the 21 days before illness onset. Initial Sepsis Screen: Does the patient meet any 2 criteria? No. Patient's initial sepsis screen is negative. Risk Assessment: Do you want to hurt yourself or someone else? Patient reports no desire to harm self or others. Onset of symptoms was January 09, 2020. 17:21 Acuity: VAISHNAVI 3 ll1 Historical: - Allergies: 17:24 Codeine; ll1 17:24 Ibuprofen; ll1 17:24 Levaquin; ll1 17:24 NSAIDS; ll1 - PMHx: 17:24 Asthma; Atrial Fib; Anxiety; CVA; fracture to sacrum; GERD; High Cholesterol; left hip ll1 fx and pinning; spinal muscle atrophy; spinal muscle atrophy, Left hip fracture and pinning, colitis, hypercholesteremia; Colitis; - PSHx: 17:24 Appendectomy; Cholecystectomy; left hip with left femur neel; ll1 - Immunization history:: Adult Immunizations up to date. - Social history:: Patient/guardian denies using alcohol, street drugs, tobacco products. Screenin:15 Abuse screen: Denies threats or abuse. Nutritional screening: No deficits noted. em Tuberculosis screening: No symptoms or risk factors identified. Fall Risk Ambulatory Aid- Crutches/Cane/Walker (15 pts). Gait- Weak (10 pts.). Total Monique Fall Scale indicates Low Risk Score (25-44 pts). Side Rails Up X 2 Placed close to Nursing Station Frequent Obs/Assesments occuring. Assessment: 18:10 General: Appears in no apparent distress. comfortable, Behavior is calm, cooperative, em appropriate for age, Denies fever. Pain: Complains of pain in chest Pain does not radiate. Pain began "several weeks, off and on". Neuro: Level of Consciousness is awake, alert, obeys commands, Oriented to person, place, time, situation, Appropriate for age. Cardiovascular: Reports chest pain, palpitations, Capillary refill < 3 seconds Patient's skin is warm and dry. Rhythm is sinus rhythm. Respiratory: Airway is patent Respiratory effort is even, unlabored, Respiratory pattern is regular, symmetrical. GI: Patient currently denies nausea, vomiting. Derm: Skin is intact, is healthy with good turgor, Skin is pink, warm \\T\\ dry. Musculoskeletal: Capillary refill < 3 seconds, Range of motion: intact in all extremities. 19:24 Reassessment: Patient appears in no apparent distress at this time. Patient is alert, rr5 oriented x 3, equal unlabored respirations, skin warm/dry/pink. discharge instruction given and explained without complaints made. Vital Signs: 17:21 BP 107 / 82; Pulse 88; Resp 17; Temp 98.7; Pulse Ox 99% ; Pain 6/10; ll1 18:38 BP 163 / 72; Pulse 75; Resp 18; Pulse Ox 98% on R/A; em 19:24 BP 125 / 84; Pulse 82; Resp 16; Pulse Ox 99% ; rr5 ED Course: 17:14 Patient arrived in ED. bp1 17:23 Triage completed. ll1 17:24 Arm band placed on Patient placed in an exam room, on a stretcher. ll1 17:29 Sukhi Kulkarni PA is PHCP. jr8 17:30 Syed Beltran MD is Attending Physician. jr8 17:38 Jose Mckeon, LM is Primary Nurse. em 17:57 XRAY Chest (1 view) In Process Unspecified. EDMS 18:15 Patient has correct armband on for positive identification. Placed in gown. Bed in low em position. Call light in reach. Side rails up X2. teletypesetter monitor on. Pulse ox on. NIBP on. 18:15 Initial lab(s) drawn, by me, sent to lab. Inserted saline lock: 20 gauge in right em antecubital area, using aseptic technique. Blood collected. 18:15 Patient maintains SpO2 saturation greater than 95% on room air. em 18:40 EKG done, by ED staff, reviewed by Sukhi ORNELAS. 3 19:01 Tino Mcintyre MD is Referral Physician. jr8 19:23 No provider procedures requiring assistance completed. IV discontinued, intact, rr5 bleeding controlled, No redness/swelling at site. Pressure dressing applied. Administered Medications: 19:10 Drug: Potassium Chloride 40 mEq Route: PO; rr5 19:25 Follow up: Response: No adverse reaction rr5 Outcome: 19:01 Discharge ordered by MD. jr8 19:23 Discharged to home ambulatory, with walker rr5 19:23 Condition: stable 19:23 Discharge instructions given to patient, Instructed on discharge instructions, follow up and referral plans. medication usage, Demonstrated understanding of instructions, follow-up care, medications, Prescriptions given X 1. 19:25 Patient left the ED. rr5 Signatures: Dispatcher [employer] EDMS Jose Mckeon RN RN Sukhi Kulkarni PA PA 8 Maggy Henderson 3 Rey Hagen RN RN rr5 [place] RN RN ll1 Dodie Foley [facility] Corrections: (The following items were deleted from the chart) 17:29 17:21 Chief complaint: Patient states: Fast HR and palpitations for several months. ll1 States her home monitor shows runs of v tach rate 130's-140's. + chest pain today. Cannot get a deep breathe. ll1
--- NOTE | 2020-01-09 19:02 | EDPHYS ---
Physician Documentation [facility] Name: Amena Smalls Age: 59 yrs Sex: Female : 1960 Arrival Date: 01/09/2020 Time: 17:14 Bed 2 Private MD: ED Physician Syed Beltran HPI: 01/08 21:06 This 59 yrs old Female presents to ER via Unassigned with complaints of Chest jr8 Pain, Breathing Difficulty, Dizziness. 21:06 The patient presents with a history of heart racing. Context: The symptoms occur at jr8 rest. Onset: The symptoms/episode began/occurred acutely, today. Duration: The patient or guardian reports a single episode, that is now resolved. Modifying factors: The symptoms are aggravated by nothing. The symptoms are alleviated by Valsalva maneuver, of. Associated signs and symptoms: Pertinent positives: chest pain, dizzy. Severity of symptoms: At their worst the symptoms were moderate in the emergency department the symptoms have resolved. The patient has experienced similar episodes in the past, a few times. The patient has not recently seen a physician. Stated that she will get racing heart beat from time to time. Stated that she will do Valsalva and it will go away. Today was lasting longer and had chest pain with it that she normally does not have . Historical: - Allergies: 17:24 Codeine; ll1 17:24 Ibuprofen; ll1 17:24 Levaquin; ll1 17:24 NSAIDS; ll1 - PMHx: 17:24 Asthma; Atrial Fib; Anxiety; CVA; fracture to sacrum; GERD; High Cholesterol; left hip ll1 fx and pinning; spinal muscle atrophy; spinal muscle atrophy, Left hip fracture and pinning, colitis, hypercholesteremia; Colitis; - PSHx: 17:24 Appendectomy; Cholecystectomy; left hip with left femur neel; ll1 - Immunization history:: Adult Immunizations up to date. - Social history:: Patient/guardian denies using alcohol, street drugs, tobacco products. ROS: 21:06 Eyes: Negative for injury, pain, redness, and discharge, ENT: Negative for injury, jr8 pain, and discharge, Neck: Negative for injury, pain, and swelling, Respiratory: Negative for shortness of breath, cough, wheezing, and pleuritic chest pain, Abdomen/GI: Negative for abdominal pain, nausea, vomiting, diarrhea, and constipation, Back: Negative for injury and pain, MS/Extremity: Negative for injury and deformity, Skin: Negative for injury, rash, and discoloration, Neuro: Negative for headache, weakness, numbness, tingling, and seizure. 21:06 Cardiovascular: Positive for chest pain, palpitations. Exam: 21:06 Eyes: Pupils equal round and reactive to light, extra-ocular motions intact. Lids and jr8 lashes normal. Conjunctiva and sclera are non-icteric and not injected. Cornea within normal limits. Periorbital areas with no swelling, redness, or edema. ENT: Nares patent. No nasal discharge, no septal abnormalities noted. Tympanic membranes are normal and external auditory canals are clear. Oropharynx with no redness, swelling, or masses, exudates, or evidence of obstruction, uvula midline. Mucous membranes moist. Neck: Trachea midline, no thyromegaly or masses palpated, and no cervical lymphadenopathy. Supple, full range of motion without nuchal rigidity, or vertebral point tenderness. No Meningismus. Cardiovascular: Regular rate and rhythm with a normal S1 and S2. No gallops, murmurs, or rubs. Normal PMI, no JVD. No pulse deficits. Respiratory: Lungs have equal breath sounds bilaterally, clear to auscultation and percussion. No rales, rhonchi or wheezes noted. No increased work of breathing, no retractions or nasal flaring. Abdomen/GI: Soft, non-tender, with normal bowel sounds. No distension or tympany. No guarding or rebound. No evidence of tenderness throughout. Back: No spinal tenderness. No costovertebral tenderness. Full range of motion. Skin: Warm, dry with normal turgor. Normal color with no rashes, no lesions, and no evidence of cellulitis. Various stages of bruising noted on arms and legs. MS/ Extremity: Pulses equal, no cyanosis. Neurovascular intact. Full, normal range of motion. Neuro: Awake and alert, GCS 15, oriented to person, place, time, and situation. Cranial nerves II-XII grossly intact. Motor strength 5/5 in all extremities. Sensory grossly intact. Cerebellar exam normal. Normal gait. Vital Signs: 17:21 BP 107 / 82; Pulse 88; Resp 17; Temp 98.7; Pulse Ox 99% ; Pain 6/10; ll1 18:38 BP 163 / 72; Pulse 75; Resp 18; Pulse Ox 98% on R/A; em 19:24 BP 125 / 84; Pulse 82; Resp 16; Pulse Ox 99% ; rr5 MDM: 17:30 Patient medically screened. [facility] 21:06 Data reviewed: vital signs, nurses notes, lab test result(s), EKG, radiologic studies, jr8 plain films. Data interpreted: Pulse oximetry: on room air is 99 %. Interpretation: normal. 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 ED course: Patient has remained stable. No arrhythmia while in ED. VS stable. No acute findings on labs. Will d/c home on metoprolol and told to f/u with Miguelina. I also questioned patient about various stages of bruising noted on arms and legs. Stated that her gets violent from PTSD. Has notified the police and does not wish us to do anything . 01/08 17:30 Order name: Basic Metabolic Panel; Complete Time: :00 01/08 17:30 Order name: CBC with Diff; Complete Time: 19:00 01/08 17:30 Order name: LFT's; Complete Time: : 01/08 17:30 Order name: Magnesium; Complete Time: :00 01/08 17:30 Order name: NT PRO-BNP; Complete Time: 19:00 01/08 17:30 Order name: PT-INR; Complete Time: 19: 01/08 17:30 Order name: Troponin (emerg Dept Use Only); Complete Time: 19:00 01/08 17:30 Order name: XRAY Chest (1 view); Complete Time: 19:00 01/08 17:30 Order name: EKG; Complete Time: 17:31 01/08 17:30 Order name: Cardiac monitoring; Complete Time: 18:18 01/08 17:30 Order name: EKG - Nurse/Tech; Complete Time: 18:57 8 01/08 17:30 Order name: IV Saline Lock; Complete Time: 18:18 8 01/08 17:30 Order name: Labs collected and sent; Complete Time: 18:18 8 01/08 17:30 Order name: O2 Per Protocol; Complete Time: 18:18 8 01/08 17:30 Order name: O2 Sat Monitoring; Complete Time: 18:18 8 Administered Medications: 19:10 Drug: Potassium Chloride 40 mEq Route: PO; rr5 19:25 Follow up: Response: No adverse reaction rr5 Disposition: 01/09 08:38 Co-signature as Attending Physician, Syed Beltran MD I agree with the assessment and kdr plan of care. Disposition: 01/09/20 19:01 Discharged to Home. Impression: Palpitations. - Condition is Stable. - Discharge Instructions: Palpitations. - Prescriptions for Metoprolol Tartrate 25 mg Oral Tablet - take 1 tablet by ORAL route 2 times per day with a meal; 60 tablet. - Medication Reconciliation Form, Thank You Letter, Antibiotic Education, Prescription Opioid Use form. - Follow up: Tino Mcintyre MD; When: 2 - 3 days; Reason: Recheck today's complaints, Continuance of care, Re-evaluation by your physician. - Problem is new. - Symptoms have improved. Signatures: Dispatcher [employer] EDIL Syed Beltran MD MD kdr Roszak, Josh, PA PA jr8 Rey Hagen, RN RN rr5 Rose [place] RN RN ll1 Corrections: (The following items were deleted from the chart) 01/08 19:25 19:01 01/09/2020 19:01 Discharged to Home. Impression: Palpitations. Condition is rr5 Stable. Forms are Medication Reconciliation Form, Thank You Letter, Antibiotic Education, Prescription Opioid Use. Follow up: Tino Mcintyre; When: 2 - 3 days; Reason: Recheck today's complaints, Continuance of care, Re-evaluation by your physician. Problem is new. Symptoms have improved. jr8
[2020-01-09] MEDS ORDERED: POTASSIUM CL SA 10 MEQ TAB PO ONE (19:18)
[2020-01-09 20:00] VITALS: TEMP 98.7
[2020-01-09 20:04] VITALS: BP 125/84; O2SAT 99
--- NOTE | 2020-01-10 05:54 | EKG ---
Test Date: 2020-01-09 Test Time: 18:25:09 Breakfast Supervisor: PEDRO MEASUREMENT RESULTS: Intervals: Rate: 80 IN: 156 QRSD: 94 QT: 384 QTc: 442 [place]: P: 36 IN: 156 QRS: -15 T: 20 INTERPRETIVE STATEMENTS: Normal sinus rhythm Incomplete right bundle branch block Borderline ECG Compared to ECG 10/29/2017 01:14:42 No significant changes Electronically Signed On 01-10-20 05:53:34 CDT by Tino Mcintyre
== END 2020-01-09 19:25 | disposition home or self-care (01) ==
LOC: ER 17:10
DX: R00.2 Palpitations (principal); Z88.6 Allergy status to analgesic agent; Z88.1 Allergy status to other antibiotic agents
CPT/HCPCS: 36415; 71045; 80048; 80076; 83735; 83880; 84484; 85025; 85610; 93005; 99285

== ENCOUNTER 2020-03-04 10:32 | Emergency (ER) | payer OTHER ==
--- OUTSIDE RECORDS SUMMARY | 2020-03-04 10:35 | XMS REPORT | Clinical Summary ---
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-C Primary Care Provider Allergies Active Allergy [...] SMA (orlando Pichardo MD muscular atroph y) ([facility]) 03/26/2019 Lab Lab Tyree Holder Aftercare; MD Marino SMA (spinal mus cular atrophy) ([facility]) 03/26/2019 Hospital Encounter Pulmonology Tyree Holder SMA (orlando Pichardo MD muscular atroph y) ([facility]) 03/19/2019 Telephone Neurology Henna Sanchez RN 03/14/2019 Office Visit Neurology Tyree Holder SMA (spinal muscular atrophy) ([facility]) (Primary Dx); MD Marino Aftercare; At high risk fo r injury related to fall after 03/04/2019 Family History Medical History Relation Name Comments [...] 2010 SHINGLES VACCINES (#1) 2010 INFLUENZA VACCINE 03/23/2020 Procedures Procedure Name Priority Date/Time Associated Comments Diagnosis IR LUMBAR PUNCTURE Routine 12/24/2019 10:45 Spinal muscular Re sults for this AM CDT atrophy type III procedure a re in ([facility]) the results section. PROTEIN, URINE, RANDOM [...] Spinal muscular Re sults for this PM CONTACT CENTER ASSOCIATE atrophy type III procedure a re in ([facility]) the results section. IR LUMBAR PUNCTURE Routine 04/11/2019 2:08 SMA (spinal Resul ts for this PM CDT muscular atrophy) procedure are in (HCC) the results section. CT LUMBAR SPINE WO [...] are in (HCC) the results section. after 03/04/2019 Results IR Lumbar Puncture by Radiology (12/24/2019 [...] with medicatio n infusion as described above. [id number] Procedure Note Interface, Radiology Results Incoming - [...] w ith medication infusion as described above. [id number] Performing Organization Address City/State/Zipcode Phone Number [facility] [address] [place] [address] Protein, urine, random (12/24/2019 9:45 AM CDT) Pathologist Sig nature Protein, urine random 8 mg/dL [facility] Specimen Urine Performing Organization Address City/State/Zipcode Phone Number [facility] DEPARTMENT OF PATHOLOGY AND [address] [place] [address] [phone] [address] Estimated GFR (12/24/2019 9:30 AM CDT)Only the most recent of2 resultswithin the time period is included. [facility] Estimated GFR >=90 mL/min/1.73 [facility] Comment: [address] Catergory Units Interpretation G1 >=90 Normal [...] published in 2014. Specimen Performing Organization Address City/[facility] Phone Number [facility] DEPARTMENT OF PATHOLOGY AND [address] [place] [address] [place] [phone] Partial thromboplastin time, activated (12/24/2019 9:30 AM CDT)Only the most recent of2 resultswithin the time period is included. [facility] PTT 28.5 23.0 - 36.0 [facility] Comment: [facility] PTT therapeutic range for unfractionated heparin is 61.0-112.0 seconds which corresponds to Anti-Xa 0.3-0.7 U/ml. Specimen Blood Performing Organization Address [facility]/Zipcode Phone Number [facility] DEPARTMENT OF PATHOLOGY AND [address] [place] [address] [place] [phone] Prothrombin time with INR (12/24/2019 9:30 AM CDT)Only the most recent of2 resultswithin the time period is included. [facility] Prothrombin time 13.5 11.5 - 14.5 [facility] INR 1.0 [facility] Comment: [place] The International Normalized Ratio (INR) is a therapeu [facility] monitoring tool for patients who are stable on oral anticoagulant therapy. An INR of 2.0-3.0 is suggested for deep vein thrombosis/pulmonary embolism. Specimen Blood Performing Organization Address City/[facility]/Zipcode Phone Number [facility] DEPARTMENT OF PATHOLOGY AND [address] [place], [place] [address] [address] CBC with platelet and differential (12/24/2019 9:30 AM CDT)Only the most recent of2 resultswithin the time period is included. WBC 8.26 4.50 - 11.00 [facility] k/uL HOSPITAL RBC 3.88 (L) 4.20 - 5.50 [facility] m/[facility] HGB 12.2 12.0 - 16.0 [facility] gdL [facility] HCT 37.8 37.0 - 47.0 % [facility] MCV 97.4 82.0 - 100.0 [facility] MCH 31.4 27.0 - 34.0 pg [facility] MCHC 32.3 31.0 - 37.0 [facility] gdL [facility] RDW - SD 46.8 37.0 - 55.0 [facility] MPV 9.7 8.8 - 13.2 [facility] Platelet count 189 150 - 400 k/uL [facility] Nucleated RBC 0.00 /100 WBC [facility] Neutrophils 66.6 39.0 - 69.0 % [facility] Lymphocytes 25.7 25.0 - 45.0 % [facility] Monocytes 5.3 0.0 - 10.0 % [facility] Eosinophils 1.7 0.0 - 5.0 % [facility] Basophils 0.5 0.0 - 1.0 % [facility] Immature granulocytes 0.2Comment: 0.0 - 1.0 % [facility] "Immature [facility] granulocytes" (promyelocytes , myelocytes, metamyelocytes ) Specimen Performing Organization Address City/State/Zipcode Phone Number [facility] DEPARTMENT OF PATHOLOGY AND [address] [place], [place] [address] [address] Basic metabolic panel (12/24/2019 9:30 AM CDT) Pathologist Sig nature Sodium 142 135 - 148 mEq/L [facility] Potassium 3.6 3.5 - 5.0 mEq/L [facility] Chloride 105 98 - 112 mEq/L [facility] CO2 25 24 - 31 mEq/L [facility] Anion gap 12@ANIO 7 - 15 mEq/L [facility] BUN 7 6 - 20 mg/dL [facility] Creatinine 0.39 (L) 0.50 - 0.90 mg/dL [facility] Glucose 82 65 - 99 mg/dL [facility] Calcium 8.9 8.3 - 10.2 mg/dL [facility] Specimen Performing Organization Address City/State/Zipcode Phone Number [facility] DEPARTMENT OF PATHOLOGY AND [address] [place], [place] [address] GENOMIC MEDICINE [facility] [address] [place] [address] CT Lumbar Spine Wo Contrast (03/26/2019 4:33 PM CDT) Specimen Narrative Performed At EXAMINATION: CT LUMBAR SPINE WO CONTRA ST [facility] CLINICAL HISTORY: G12.9 Spinal muscular atrophy [...] puncture can be done with fluoroscopic guidance. [id number] Procedure Note Interface, Radiology Results Incoming - [...] puncture can be done with fluoroscopic guidance. [id number] Performing Organization Address City/[facility]/Zipcode Phone Number [facility] [address] [place] [address] Urinalysis, automated with microscopy (03/26/2019 3:19 PM CDT) Pathologist Sig nature Color, UA Straw [facility] Appearance, UA Clear [facility] Specific gravity, UA 1.008 1.001 - 1.035 [facility] pH, UA 7.0 5.0 - 8.5 [facility] Protein, UA Negative Negative [facility] Glucose, UA Negative Negative [facility] Ketones, UA Trace (A) Negative [facility] Bilirubin, UA Negative Negative [facility] Blood, UA Negative Negative [facility] Nitrite, UA Negative Negative [facility] Urobilinogen, UA <2.0 <2.0 [facility] Leukocyte esterase, Trace (A) Negative [facility] Epithelial cells, UA 1 /HPF [facility] WBC, UA 2 0 - 4 /HPF [facility] RBC, UA 1 0 - 5 /HPF [facility] Bacteria, UA Few None seen [facility] Yeast, UA None seen [facility] Yeast with None seen [facility] pseudohyphae, HOSPITAL Specimen Urine Performing Organization Address [facility] Phone Number [facility] DEPARTMENT OF PATHOLOGY AND [address], [place] [address] GENOM[address]INE [address] [address] Comprehensive metabolic panel (03/26/2019 3:12 PM CDT) Sodium 140 135 - 148 [facility] mEq/L [facility] Potassium 3.5 3.5 - 5.0 [facility] mEq/L [facility] Chloride 100 98 - 112 [facility] mEq/L HOSPITAL CO2 25 24 - 31 mEq/L [facility] Anion gap 15@ANIO 7 - 15 mEq/L [facility] BUN 7 6 - 20 mg/dL [facility] Creatinine 0.37 (L) 0.50 - 0.90 [facility] mg/dL [facility] Glucose 117 (H) 65 - 99 mg/dL [facility] Calcium 9.4 8.3 - 10.2 [facility] mg/dL [facility] Protein 7.2 6.3 - 8.3 [facility] Comment: g/dL HOSPITAL 4.6-7.0 g/dL 1 week 4.4-7.6 g/dL 7 months-1year 5.1-7.3 g/dL 1-2 years 5.6-7.5 g/dL >3 years 6.0-8.0 g/dL 18-150 6.3-8.3 g/dL Albumin 4.1 3.5 - 5.0 [facility] g/dL [facility] A/G ratio 1.3 0.7 - 3.8 [facility] Alkaline phosphatase 63 35 - 104 U/L [facility] AST 16 10 - 35 U/L [facility] ALT 12 5 - 50 U/L [facility] Total bilirubin 0.5 0.0 - 1.2 [facility] mg/dL [facility] Specimen Plasma specimen Performing Organization Address City/State/Zipcode Phone Number [facility] DEPARTMENT OF PATHOLOGY AND [address] [place] [phone] GENOMIC MEDICINE [address] [address] Spirometry, MIPS/MEPS (03/26/2019 1:54 PM CDT) Pathologist [...] Address City/State/Zipcode Phone Number [facility] [address] [place] [address] after 03/04/2019 Insurance Payer Benefit Plan / Subscriber ID Effective Dates Phone Addre ss Type Group MEDICARE MEDICARE PART A xxxxxxxxxxx 2015-Present [place] Medicare AND B FOR LIFE xxxxxxxxx 2016-Present [facility] SUPPLEMENT Advance Directives For more information, please contact: [phone] Type Date Recorded Patient Recruiting Scheduler Explanati on Advance Directives, Living Will and Medical Power of Wood Die Maker
--- OUTSIDE RECORDS SUMMARY | 2020-03-04 10:35 | XMS REPORT | Continuity of Care Document ---
:1960 Author Organization [employer] Care Team Providers Name Role Phone [facility] Unavailable Un available Problems Problem Status Onset Classification Date Comments Sourc e Date Reported Spinal cord Resolved Problem 01/15/2019 Medi daniel disorder Group (disorder) LUMBAR PAIN Active [facility] Medications Medication Details Route Status Patient Ordering Order Source Instructions Provider Date Sulfamethoxazole 1 tab, PO, No 800 MG / BID, X 14 Longer 018 Medical Trimethoprim 160 MG day, # 28 Active Gr oup Oral Tablet tab, 0 [Bactrim] Refill(s), Pharmacy: [facility] [place] Prilosec PO, Daily, Active 0 Refill(s) 018 [...] Temperature Oral (F) 97.9 F 06/27/2018 Medi daniel Group Systolic (mm Hg) 121 06/27/2018 Medical Group Diastolic (mm Hg) 80 06/27/2018 Medical Group Encounters Location Location Encounter Encounter Reason Attending ADM DC Stat us Source Details Type Number For Provider Date Date Visit Outpatient [id number] [facility] 06/27 Act shaylee [facility] Urgent Outpatient [id number] [place] 06/27 06/28 Care Medical Clear Group Cho Procedures Procedure Code Date Perfomer Comments Source Cholecystectomy [id number] Medica l Group Hip joint operations [id number] [facility] edical Group Assessment and Plan No Data [...]
--- OUTSIDE RECORDS SUMMARY | 2020-03-04 10:36 | XMS REPORT | Continuity of Care Document ---
:1960 Author Organization [facility] t Address [address] [place] [address] Dr. Harry. 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 00 Spinal Problem Resolve 2019-01-15 Alan lui cord d 13:03:50 l disorder Spinal Natanael n (disorder) cord disorder (disorder) Resolved Problem 01/15/2019 Medical Group LUMBAR Diagnosis Active 2015-07-19 Mem oria PAIN UDU 16:21:00 l MD WILL LUMBAR [place] FAX PAIN UDU MD WILL FAX Active [facility] Allergies, Adverse Reactions, Alerts Allergy Allergy Status Severity Reaction(s) Onset Inactive Treating Comm ents Source Name Type Date Date Clinician Nsaids Propensi Active Severe Other [facility] (Non-Piero ty to 02-17 reaction( Metho di [...] Unknown - See comments Codeine Propensi Active [facility] ty to 12-15 Methodi adverse 00:00: st reaction 00 s to drug codeine codeine Active Memoria l [place] ibuprofe ibuprofe Active Memori a n n l [place] Levaquin Levaquin Active Memori a l [place] NSAIDs NSAIDs Active Memoria l [place] Family History Family Member Diagnosis Comments Start Date Stop Date Source Natural father Hyperlipidemia [place] [facility] Natural father Hypertension [facility] Christianity Natural mother Hypertension [facility] Social History Social Habit Start Date Stop Date Quantity Comments Source Sex Assigned At [facility] ethodist Alcohol intake 2020-01-02 2020-01-02 Current [facility] thodist 00:00:00 00:00:00 non-drinker of alcohol (finding) Smoking Status Start Date Stop Date Source Never smoker [facility] Methodis t Medications Ordered Filled Start Stop Current [...] l MG / 22:04: day, # 28 [place] Trimethopri 00 tab, 0 m 160 MG Refill(s), Oral Tablet [facility] [place] Prilosec 2017-07 Yes PO, Daily, Mem oria 2-06 0 l 21:55: Refill(s) [place] Ambien 2017-07 Yes PO, Memoria 2-06 Bedtime, 0 l 21:55: Refill(s) [place] Soma 2017-07 Yes PO, QID, 0 Memoria 2-06 Refill(s) l 21:55: [place] 00 Tramadol 2017-07 Yes 50 mg, PO, Mem oria 2-06 Q4-6H, PRN l 21:55: Pain, # 20 [place] 00 tab, 0 Refill(s) zolpidem Yes TAKE ONE [place] (AMBIEN) 10 5-08 (1) Methodi mg tablet 00:00: TABLET(S) st 00 BY MOUTH ONCE A DAY. carisoprodo Yes TAKE ONE [place] (SOMA) 5- (1) Methodi 350 MG 00:00: TABLET(S) st tablet 00 BY MOUTH TWICE A DAY NEEDED. traMADol Yes TAKE ONE [place] (ULTRAM) 50 11-20 (1) Methodi mg tablet 00:00: TABLET(S) st 00 BY MOUTH 3 TO 4 TIMES A DAY NEEDED. ADVAIR 2016- Yes as needed. [place] DISKUS 11-18 Methodi 100-50 00:00: st mcg/dose 00 DISKUS alendronate 2019- No TAKE ONE H maria luz (FOSAMAX) 11-18 (1) Methodi 35 MG 00:00: 00:00 TABLET(S) st tablet 00 :00 BY MOUTH ONCE WEEKLY. ZOSTAVAX, 2019- No RECONSTITU Chuy braga PF, 19,400 11-08 TE AND Method i unit/0.65 00:00: 00:00 ADMINISTER s t mL 00 :00 0.65ML injection rosuvastati Yes TAKE ONE Rigoberto espinoza n (CRESTOR) 4-18 (1) Methodi 10 MG 00:00: TABLET(S) st tablet 00 BY MOUTH ONCE A DAY AT BEDTIME. OSPHENA 60 Yes TAKE ONE Wily ston mg tablet 11-01 (1) Methodi 00:00: TABLET(S) st 00 BY MOUTH ONCE A DAY WITH FOOD. doxepin Yes Q24H Apply Leeroy (ZONALON) 09-20 topically Met hodi % cream 00:00: daily as st 00 needed. Vital Signs Vital Name Observation Time Observation Value Comments Source Systolic blood 2020-01-02 13:14:00 103 mm[Hg] Janetteto n Christianity pressure Diastolic blood 2020-01-02 13:14:00 69 mm[Hg] [place] [facility] pressure Heart rate 2020-01-02 13:14:00 86 /min Leeroy Zeng Body temperature 2020-01-02 13:14:00 36.78 Jacy [place] [facility] Body height 2020-01-02 13:14:00 162.6 cm Leeroy Zeng Body weight 2020-01-02 13:14:00 64.003 kg Leeroy Christianity BMI 2020-01-02 13:14:00 24.22 kg/m2 Leeroy Zeng Respiratory rate 2019-12-24 11:15:00 16 /min Janette Zeng Oxygen saturation in 2019-12-24 11:15:00 97 /min Leeroy Zeng Arterial blood by Pulse oximetry Height 2018-06-27 21:54:00 [facility] 2018-06-27 21:54:00 [facility] BMI Calculated 2018-06-27 21:54:00 Memori al [place] Heart Rate 2018-06-27 21:54:00 [facility] Temperature Oral (F) 2018-06-27 21:54:00 97.9 F [facility] Corey Systolic (mm Hg) 2018-06-27 21:54:00 Alan riajacquelyn Corey Diastolic (mm Hg) 2018-06-27 21:54:00 Mem orial [place] Procedures Procedure Date / Time Performing Clinician Source Performed IR LUMBAR PUNCTURE 2019-12-24 10:45:57 Tyree Holder PROTEIN, URINE, RANDOM 2019-12-24 09:45:00 Tyree Holder HC COMPLETE BLD COUNT 2019-12-24 09:30:00 Tyree Holder W/AUTO DIFF [place] BASIC METABOLIC PANEL 2019-12-24 09:30:00 Tyree Holder PROTHROMBIN TIME WITH INR 2019-12-24 09:30:00 Tyree Holder PARTIAL THROMBOPLASTIN 2019-12-24 09:30:00 Tyree Holder Christianity TIME (PTT) [place] ESTIMATED GFR 2019-12-24 09:30:00 Tyree Holder odcuca Pichardo IR LUMBAR PUNCTURE 2019-08-13 13:42:57 Tyree Holder IR LUMBAR PUNCTURE 2019-04-11 14:08:[address] LUMBAR SPINE WO 2019-03-26 16:33:05 Paige Echeverria CONTRAST URINALYSIS, AUTOMATED WITH 2019-03-26 15:19:00 Tyree Holder PROTHROMBIN TIME WITH INR 2019-03-26 15:12:00 Paige Echeverria COMPREHENSIVE METABOLIC 2019-03-26 15:12:00 Paige Echeverria Christianity PANEL HC COMPLETE BLD COUNT 2019-03-26 15:12:00 Paige Echeverria W/AUTO DIFF PARTIAL THROMBOPLASTIN 2019-03-26 15:12:00 Paige Echeverria on Christianity TIME (PTT) ESTIMATED GFR 2019-03-26 15:12:00 Tyree Holder Meth odist [place] SPIROMETRY, MIPS/MEPS 2019-03-26 13:54:28 Tyree Holder Cholecystectomy [facility] Hip joint operations [facility] Plan of Care Planned Activity Planned Date Details Comments Source Future Scheduled 2020-03-23 INFLUENZA VACCINE Janetteto n Christianity Test 00:00:00 [code = INFLUENZA VACCINE] Future Scheduled 2010 BREAST CANCER [facility] Me thodist Test 00:00:00 SCREENING [code = BREAST CANCER SCREENING] Future Scheduled 2010 COLONOSCOPY SCREENING Rigoberto espinoza Christianity Test 00:00:00 [code = COLONOSCOPY SCREENING] Future Scheduled 2010 SHINGLES VACCINES Janetteto n Christianity Test 00:00:00 (#1) [code = SHINGLES VACCINES (#1)] Future Scheduled 1981 Screening for [facility] thodist Test 00:00:00 malignant neoplasm of cervix (procedure) [code = 701959683] Encounters Start End Encounter Admission Attending Care Care Encounter Source Date/Time Date/Time Type Type Clinicians Facility Department ID 2020-01-02 2020-01-02 Outpatient RADHAMES [facility] [id number] [facility] 00:00:00 00:00:00 RASHIDA 513 Method i 2019-12-24 2019-12-24 Outpatient LJ [facility] [id number] [facility] 00:00:00 00:00:00 TYREE [address] 2019-11-28 2019-11-28 Office LUIS Ramos [id number] 10:56:35 11:29:41 Visit [facility] [id number] Surgical [id number] Special [id number] Karie 2019-08-13 2019-08-13 Outpatient LJ [facility] [id number] [facility] 00:00:00 00:00:[address] 2018-06-27 2018-06-27 Outpatient VALENCIA Chan [facility] [id number] 15:45:00 23:59:59 Felix-Annie 00 T Results Test Description Test Time Test Comments Results Result Comments Source Protein, urine, random 2019-12-24 12:29:25 Test Item Value Reference Range Interpretation Comme nts Protein, urine random (test code = 2888-6) 8 mg/dL [facility] TrinhistIR Lumbar Puncture by [id number] 10:51:41Hm Interface, Radiology Results 12/24/2019 10:54 AM [...] lumbar puncture with medication infusion as described above.[facility]-[id number] [facility] [id number] 10:27:37 Test Item Value Reference Range Interpretation Comments Sodium (test code = 2951-2) 142 135- 148 mEq/L Potassium (test code = 2823-3) 3.6 3.5- 5.0 mEq/L Chloride (test code = 2075-0) 105 98- 112 mEq/L CO2 (test code = 2027-9) 25 24- 31 mEq/L Anion gap (test code = 38461-3) 12@ANIO 7- 15 mEq/L BUN (test code = 3094-0) 7 mg/dL 6-20 Creatinine (test code = 2160-0) 0.39 mg/dL 0.5-0.9 L Glucose (test code = 2345-7) 82 mg/dL 65-99 Calcium (test code = 08566-5) 8.9 mg/dL 8.3-10.2 Lab Interpretation (test code = Abnormal 18442-0) Leeroy MethodistEstimated [id number] 10:27:33 Test Item Value Reference Range Interpretation Comments Estimated GFR (test >=90 mL/min/1.73 m2 [facility] Units code = 5488) InterpretationG 1 >=90 Normal or highG2 60-89 Mildly zrwuisxmwP0i 45-59 Mildly to mode rately ituxclkeuH3b 30-44 Moderately to severely decreasedG4 15-29 Severely decre asedG5 <15 Kidn ey failureThe eGFR was calculated duy sher the Chronic Kidney Disease Epidemiology Co llaboration (CKD-EPI) equat ion. Interpretation is based on recommendations of the National Kidney Foundation-Kidn ey Disease Outcomes Qualit y Initiative (NKF-KDOQI) pub lished in 2013. Leeroy MethodistPartial thromboplastin time, [id number] 10:02:42 Test Item Value Reference Range Interpretation Comments PTT (test code = 28.5 23.0- 36.0 [place] [address]-2) unfractionated heparin is61.0-112.0 se conds which corresponds to Anti-Xa0.3-0.7 U/ml. Leeroy MethodistProthrombin time with [id number] 10:02:01 Test Item Value Reference Range Interpretation Comments Prothrombin time (test 13.5 11.5- 14.5 sec code = 5902-2) INR (test code = 1.0 The Interna tional 65573-3) Normalized Rati o (INR) is a therapeutic m onitoring tool for patien ts who are stable on oral anticoagulant t herapy. An INR of 2.0-3.0 is suggested for d eep vein thrombosis/pulm onary embolism. Leeroy MethodistCBC with platelet and euizkjqfcdwd5390-71-13 09:44:16 Test Item Value Reference Range Interpretation Comments WBC (test code = 78304-4) 8.26 4.50- 11.00 k/uL RBC (test code = 06966-9) 3.88 m/uL 4.2-5.5 L HGB (test code = 718-7) 12.2 g/dL 12-16 HCT (test code = 4544-3) 37.8 % 37-47 MCV (test code = 787-2) 97.4 fL 82-100 MCH (test code = 785-6) 31.4 pg 27-34 MCHC (test code = 786-4) 32.3 g/dL 31-37 RDW - SD (test code = 46.8 fL 37-55 14260-7) MPV (test code = 48218-4) 9.7 fL 8.8-13.2 Platelet count (test code 189 150- 400 k/uL = 76931-0) Nucleated RBC (test code 0.00 /100 WBC = 77177-6) Neutrophils (test code = 66.6 % 39-69 51592-8) Lymphocytes (test code = 25.7 % 25-45 42230-2) Monocytes (test code = 5.3 % 0-10 37375-5) Eosinophils (test code = 1.7 % 0-5 65178-8) Basophils (test code = 0.5 % 0-1 52537-5) Immature granulocytes 0.2 % 0-1 "Immat ure (test code = 28124-8) granul ocytes" (promyelocytes, myelocytes, metamyelocytes) Lab Interpretation (test Abnormal code = 50465-1) [facility] [id number] 17:10:33Hm Interface, Radiology Results 03/26/2019 5:13 PM [...] Lumbar puncture can be done with fluoroscopic guidance.[facility]-[id number] MethodistUrinalysis, automated with [id number] 17:00:48 Test Item Value Reference Range Interpretation Comments Color, UA (test code = 5778-6) Straw Appearance, UA (test code = 5767-9) Clear Specific gravity, UA (test code = 1.008 1.001-1.035 5811-5) pH, UA (test code = 5803-2) 7.0 5.0-8.5 Protein, UA (test code = 46672-3) Negative Negative Glucose, UA (test code = 57616-9) Negative Negative Ketones, UA (test code = 2514-8) Trace Negative A Bilirubin, UA (test code = 5770-3) Negative Negative Blood, UA (test code = 5794-3) Negative Negative Nitrite, UA (test code = 5802-4) Negative Negative Urobilinogen, UA (test code = <2.0 <2.0 78590-6) Leukocyte esterase, UA (test code = Trace Negative A 5799-2) Epithelial cells, UA (test code = 1 /HPF 5787-7) WBC, UA (test code = 5821-4) 2 0- 4 /HPF RBC, UA (test code = 81070-8) 1 0- 5 /HPF Bacteria, UA (test code = 61974-7) Few None seen Yeast, UA (test code = 08493-5) None seen Yeast with pseudohyphae, UA (test None seen code = 35366-8) Lab Interpretation (test code = Abnormal 54645-4) [facility] MethodistComprehensive metabolic [id number] 16:06:09 Test Item Value Reference Range Interpretation Comments Sodium (test code = 140 135- 148 mEq/L 2951-2) Potassium (test code = 3.5 3.5- 5.0 mEq/L 2823-3) Chloride (test code = 100 98- 112 mEq/L 2075-0) CO2 (test code = 2027-9) 25 24- 31 mEq/L Anion gap (test code = 15@ANIO 7- 15 mEq/L 85961-3) BUN (test code = 3094-0) 7 mg/dL 6-20 Creatinine (test code = 0.37 mg/dL 0.5-0.9 L 2160-0) Glucose (test code = 117 mg/dL 65-99 H 2345-7) Calcium (test code = 9.4 mg/dL 8.3-10.2 22526-6) Protein (test code = 7.2 g/dL 6.3-8.3 [place] 2885-2) 4.6-7.0 g/dL 1 week 4.4-7.6 g/dL7 [...] bilirubin (test 0.5 mg/dL 0-1.2 code = 1975-2) Lab Interpretation (test Abnormal code = 69548-1) Umaña MethodistSpirometry, [facility]/[id number] 13:54:28 Test Item Value Reference Range Interpretation [...]
--- NOTE | 2020-03-04 12:22 | RAD REPORT ---
EXAM DESCRIPTION: RAD - Knee Left 3 View - 03/04/2020 11:38 am CLINICAL HISTORY: Left knee pain status post injury FINDINGS: The bones are very osteoporotic Large joint effusion is present. Lucency within the patella could represent a prominent trabecula or nondisplaced fracture. Given that the large joint effusion in the setting of trauma an occult fracture may be present. If cl inically indicated either MRI or CT may be helpful
[2020-03-04] MEDS ORDERED: HYDROCODONE/APAP 10/325 TAB ONE (12:53)
--- NOTE | 2020-03-04 13:14 | RAD REPORT ---
EXAM DESCRIPTION: CT - Knee Left Wo Con - 03/04/2020 12:57 pm CLINICAL HISTORY: knee pain, fall, abnormal plain film COMPARISON: Knee Left 3 View dated 03/04/2020 TECHNIQUE: Axial 2 millimeter thick images of the left knee were obtained. Sagittal and coronal refo rmatted images were generated and reviewed. The CT scan was performed using dose optimization techniques as appropriate to a performed exam incl uding one or more of the following: Automated exposure control, adjustment of the mA and/or kV accord ing to patient size (this includes techniques or standardized protocols for targeted exams where dose is matched to indication/reason for exam) and use of iterative reconstruction technique. FINDINGS: Transverse fracture is present in the superior aspect of the patella. There is no distract ion. Oblique lucency in the anterior patella is sclerotic along the margins indicating that this is e ither a normal variant cleft or sequela of a remote patella fracture. No pathologic bone process. Patient has a large joint effusion. There is layering of the fluid in the joint indicating presence o f hemorrhagic material within the joint space. The femur, tibia and fibula show no acute findings. Osteopenic changes are evident. Benign sclerotic focus present in the posterior medial tibial plateau. Small calcification is present along the physical sciences professor ior joint line. This does appear to be intra-articular or along the joint capsule. This is probably n ot acute bony injury. No foreign body. IMPRESSION: Transverse fracture in the superior patella. No distraction along the fracture line. Large hemarthrosis.
[2020-03-04] MEDS ORDERED: LIDOCAINE 1% MPF 5 ML VIAL ONE (13:21)
--- NOTE | 2020-03-04 13:37 | EDPHYS ---
Physician Documentation [facility] Name: Amena Smalls Age: 59 yrs Sex: Female : 1960 Arrival Date: 03/04/2020 Time: 10:36 Bed 19 Private MD: ED Physician Syed Beltran HPI: 03/04 11:01 This 59 yrs old Female presents to ER via Unassigned with complaints of Fall kdr Injury - yest, Leg Pain. 11:01 Details of fall: The patient fell from an upright position, while standing. Onset: The kdr symptoms/episode began/occurred suddenly, last night. Associated injuries: The patient sustained left knee, decreased range of motion, swelling. Severity of symptoms: At their worst the symptoms were mild, moderate, just prior to arrival. The patient has not experienced similar symptoms in the past. The patient has not recently seen a physician. Historical: - Allergies: 11:06 Codeine; iw 11:06 Ibuprofen; iw 11:06 Levaquin; iw 11:06 NSAIDS; iw - PMHx: 11:06 Anxiety; Asthma; Atrial Fib; Colitis; CVA; fracture to sacrum; GERD; High Cholesterol; iw left hip fx and pinning; spinal muscle atrophy; spinal muscle atrophy, Left hip fracture and pinning, colitis, hypercholesteremia; - PSHx: 11:06 Appendectomy; Cholecystectomy; left hip with left femur neel; iw - Immunization history:: Adult Immunizations up to date. - Social history:: Smoking status: Patient/guardian denies using. ROS: 11:01 Constitutional: Negative for fever, chills, and weight loss, Eyes: Negative for injury, kdr pain, redness, and discharge, ENT: Negative for injury, pain, and discharge, Neck: Negative for injury, pain, and swelling, Cardiovascular: Negative for chest pain, palpitations, and edema, Respiratory: Negative for shortness of breath, cough, wheezing, and pleuritic chest pain, Abdomen/GI: Negative for abdominal pain, nausea, vomiting, diarrhea, and constipation, Back: Negative for injury and pain, : Negative for injury, bleeding, discharge, and swelling, Skin: Negative for injury, rash, and discoloration, Neuro: Negative for headache, weakness, numbness, tingling, and seizure activity. Psych: Negative for depression, anxiety, suicide ideation, homicidal ideation, and hallucinations, Allergy/Immunology: Negative for hives, rash, and allergies, Endocrine: Negative for neck swelling, polydipsia, polyuria, polyphagia, and marked weight changes, Hematologic/Lymphatic: Negative for swollen nodes, abnormal bleeding, and unusual bruising. 11:01 MS/extremity: Positive for injury or acute deformity, decreased range of motion, deformity, pain, swelling, tenderness. Exam: 11:01 Constitutional: This is a well developed, well nourished patient who is awake, alert, kdr and in no acute distress. Head/Face: Normocephalic, atraumatic. 11:01 Musculoskeletal/extremity: Extremities: grossly normal except: noted in the left knee: abrasion, decreased ROM, pain, swelling, tenderness, Pulses: are normal with no appreciated deficits, Sensation intact. Joints: the left knee displays effusion, ligament laxity, limited range of motion, pain at rest, painful range of motion, swelling, tenderness, Weight bearing: is unable to bear weight. Vital Signs: 11:05 BP 131 / 73; Pulse 81; Resp 16 S; Temp 98.1; Pulse Ox 97% on R/A; iw 12:00 BP 118 / 88; Pulse 76; Resp 17; Pulse Ox 97% ; rb1 13:00 BP 117 / 90; Pulse 87; Resp 16; Pulse Ox 100% ; rb1 Procedures: 13:37 Joint Treatment: Aspiration of left knee using 18 gauge needle, Lidocaine, Removed kdr bloody fluid, Dressed with band aid, 4x4s, Patient tolerated well. MDM: 11:01 Data reviewed: vital signs, nurses notes, radiologic studies. Counseling: I had a kdr detailed discussion with the patient and/or guardian regarding: the historical points, exam findings, and any diagnostic results supporting the discharge/admit diagnosis, radiology results, the need for outpatient follow up. 13:37 Patient medically screened. kdr 03/04 11:01 Order name: Knee Left 3 View XRAY; Complete Time: 12:39 kdr 03/04 12:43 Order name: Knee Left Wo Con; Complete Time: 13:31 EDMS 03/04 13:29 Order name: Jay Wrap; Complete Time: 14:25 rb1 03/04 13:29 Order name: Knee Immobilizer; Complete Time: 14:24 rb1 03/04 13:36 Order name: Crutches; Complete Time: 14:24 rb1 Administered Medications: 13:05 Drug: Johnston 10 mg-325 mg 1 tabs Route: PO; rb1 13:45 Follow up: Response: No adverse reaction; Pain is decreased rb1 Disposition: 03/04/20 13:37 Discharged to Home. Impression: patellar Fracture. - Condition is Stable. - Discharge Instructions: Patellar Fracture, Adult. - Prescriptions for Tramadol 50 mg Oral Tablet - take 1 tablet by ORAL route every 8 hours as needed; 12 tablet. - Medication Reconciliation Form, Thank You Letter, Prescription Opioid Use form. - Follow up: Private Physician; When: 2 - 3 days; Reason: If symptoms return, Further diagnostic work-up, Recheck today's complaints, Continuance of care, Re-evaluation by your physician. - Problem is new. - Symptoms have improved. Signatures: Dispatcher [employer] EDMS Syed Beltran MD MD kdr Kaia Villagomez RN RN iw Cynthia Joshua RN RN rb1 Corrections: (The following items were deleted from the chart) 14:13 13:37 03/04/2020 13:37 Discharged to Home. Impression: patellar Fracture. Condition is rb1 Stable. Forms are Medication Reconciliation Form, Thank You Letter, Antibiotic Education, Prescription Opioid Use. Follow up: Private Physician; When: 2 - 3 days; Reason: If symptoms return, Further diagnostic work-up, Recheck today's complaints, Continuance of care, Re-evaluation by your physician. Problem is new. Symptoms have improved. kdr
--- NOTE | 2020-03-04 13:37 | ER ---
Nurse's Notes [facility] Name: Amena Smalls Age: 59 yrs Sex: Female : 1960 Arrival Date: 03/04/2020 Time: 10:36 Bed 19 Private MD: Diagnosis: patellar Fracture Presentation: 03/04 11:00 Chief complaint: Patient states: has a hx of muscular atrophy, was using a step stool iw to get up into the bed last night, stool slipped out from under her, fell onto left knee and hip, now can't bear weight. 11:00 Acuity: VAISHNAVI 4 iw 11:05 Coronavirus screen: At this time, the client does not indicate any symptoms associated iw with coronavirus-19. Ebola Screen: Patient negative for fever greater than or equal to 101.5 degrees Fahrenheit, and additional compatible Ebola Virus Disease symptoms Patient denies exposure to infectious person. Patient denies travel to an Ebola-affected area in the 21 days before illness onset. No symptoms or risks identified at this time. Initial Sepsis Screen: Does the patient meet any 2 criteria? No. Patient's initial sepsis screen is negative. Does the patient have a suspected source of infection? No. Patient's initial sepsis screen is negative. Risk Assessment: Do you want to hurt yourself or someone else? Patient reports no desire to harm self or others. Onset of symptoms was March 03, 2020. 11:05 Method Of Arrival: Wheelchair iw Historical: - Allergies: 11:06 Codeine; iw 11:06 Ibuprofen; iw 11:06 Levaquin; iw 11:06 NSAIDS; iw - PMHx: 11:06 Anxiety; Asthma; Atrial Fib; Colitis; CVA; fracture to sacrum; GERD; High Cholesterol; iw left hip fx and pinning; spinal muscle atrophy; spinal muscle atrophy, Left hip fracture and pinning, colitis, hypercholesteremia; - PSHx: 11:06 Appendectomy; Cholecystectomy; left hip with left femur neel; iw - Immunization history:: Adult Immunizations up to date. - Social history:: Smoking status: Patient/guardian denies using. Screenin:00 Abuse screen: Denies threats or abuse. Nutritional screening: No deficits noted. rb1 Tuberculosis screening: No symptoms or risk factors identified. Fall Risk Fall in past 12 months (25 points). Secondary diagnosis (15 points) impaired mobility, CVA, No IV (0 pts). Ambulatory Aid- Crutches/Cane/Walker (15 pts). Gait- Impaired (20 pts.). Mental Status- Oriented to own ability (0 pts). Total Monique Fall Scale indicates High Risk Score (45 or more points). Fall prevention measures have been instituted. Side Rails Up X 2 Placed Close to Nursing Station 1:1 Attendant Assigned Frequent Obs/Assessments Occuring As available patient and family educated on Fall Prevention Program and Strategies. Assessment: 11:00 General: Appears uncomfortable, Behavior is calm, cooperative. Pain: Complains of pain rb1 in left knee Pain began 1 day ago. Neuro: Level of Consciousness is awake, alert, obeys commands, Oriented to person, place, time, situation. Cardiovascular: Capillary refill < 3 seconds. Respiratory: Airway is patent Respiratory effort is even, unlabored, Respiratory pattern is regular, symmetrical. GI: No signs and/or symptoms were reported involving the gastrointestinal system. : No signs and/or symptoms were reported regarding the genitourinary system. Derm: Skin is pink, warm \T\ dry. Musculoskeletal: Swelling present in left knee. 12:00 Reassessment: Patient appears in no apparent distress at this time. No changes from rb1 previously documented assessment. 13:00 Reassessment: Patient appears in no apparent distress at this time. Patient and/or rb1 family updated on plan of care and expected duration. Pain level reassessed. Patient is alert, oriented x 3, equal unlabored respirations, skin warm/dry/pink. 13:45 Reassessment: Patient appears in no apparent distress at this time. Patient and/or rb1 family updated on plan of care and expected duration. Pain level reassessed. Patient is alert, oriented x 3, equal unlabored respirations, skin warm/dry/pink. Vital Signs: 11:05 BP 131 / 73; Pulse 81; Resp 16 S; Temp 98.1; Pulse Ox 97% on R/A; iw 12:00 BP 118 / 88; Pulse 76; Resp 17; Pulse Ox 97% ; rb1 13:00 BP 117 / 90; Pulse 87; Resp 16; Pulse Ox 100% ; rb1 ED Course: 10:36 Patient arrived in ED. as 10:42 Syed Beltran MD is Attending Physician. kdr 11:00 Patient has correct armband on for positive identification. Bed in low position. Call rb1 light in reach. Side rails up X 1. Pulse ox on. NIBP on. 11:04 Triage completed. iw 11:07 Arm band placed on. iw 11:11 Cynthia Joshua, RN is Primary Nurse. rb1 11:38 Knee Left 3 View XRAY In Process Unspecified. EDMS 12:57 Knee Left Wo Con In Process Unspecified. EDMS 14:09 No provider procedures requiring assistance completed. Patient did not have IV access rb1 during this emergency room visit. Administered Medications: 13:05 Drug: [place] 10 mg-325 mg 1 tabs Route: PO; rb1 13:45 Follow up: Response: No adverse reaction; Pain is decreased rb1 Outcome: 13:37 Discharge ordered by MD. kdr 14:09 Patient left the ED. rb1 14:09 Discharged to home via wheelchair, with crutches, with family. rb1 14:09 Condition: stable 14:09 Discharge instructions given to patient, Instructed on discharge instructions, follow up and referral plans. medication usage, Demonstrated understanding of instructions, follow-up care, medications, Prescriptions given X 1. Signatures: Dispatcher [employer] EDMS Syed Beltran MD MD kdr Mariah Hsu as Kaia Villagomez, RN RN Cynthia Joshua, RN RN rb1 Corrections: (The following items were deleted from the chart) 14:14 14:13 Patient left the ED. rb1 rb1
[2020-03-04 14:17] VITALS: TEMP 98.1
[2020-03-04 14:20] VITALS: BP 117/90; O2SAT 100
== END 2020-03-04 14:13 | disposition home or self-care (01) ==
LOC: ER 10:32
PROC: 0S9D3ZZ Drainage of Left Knee Joint, Percutaneous Approach (ICD-10-PCS; principal; 2020-03-04)
DX: S82.035A Nondisplaced transverse fracture of left patella, initial encounter for closed fracture (principal); W17.89XA Other fall from one level to another, initial encounter; Y93.89 Activity, other specified; Y92.013 Bedroom of single-family (private) house as the place of occurrence of the external cause
CPT/HCPCS: 73700; 99284

== ENCOUNTER 2020-06-08 10:20 | Day surgery (SDC) | payer OTHER ==
[2020-06-08] MEDS ORDERED: Zoledronic Acid/Mannitol/Water 5 MG/100 ML INFUS.BOT IV ONE (10:30)
--- OUTSIDE RECORDS SUMMARY | 2020-06-08 10:34 | XMS REPORT | Clinical Summary ---
:1960 Author Organization [facility] Address [address] [place] [address] Care Team Providers Name Role Phone Ember Daniel HUMAN PERFORMANCE TECHNOLOGIST-C Primary Care Provider Allergies Active Allergy Reactions Severity Noted Date Comments Codeine 12/15/2016 Ibuprofen 08/09/2017 Other reaction( s): Unknown - See c omments Levofloxacin Medium 08/09/2017 Other reaction( s): Other - See comments, Unknown - See comments Nsaids (Non-Steroidal High 02/17/2019 Other reaction(s): Nausea Anti-Inflammatory Drug) and/ or Vomiting, Unknown - See comments Medications Medication Sig Dispensed Refills Start Date End Date Status ADVAIR DISKUS 100-50 as needed. 2 11/18/2016 Active mcg/dose DISKUS carisoprodol (SOMA) TAKE ONE (1) 1 11/20/2016 Active 350 MG tablet TABLET(S) BY MOUTH TWICE A DAY NEEDED. OSPHENA 60 mg tablet TAKE ONE (1) 0 11/01/2016 Active TABLET(S) BY MOUTH ONCE A DAY WITH FOOD. rosuvastatin TAKE ONE (1) 3 11/07/2016 Act shaylee (CRESTOR) 10 MG TABLET(S) BY MOUTH tablet ONCE A DAY AT BEDTIME. traMADol (ULTRAM) 50 TAKE ONE (1) 1 11/20/2016 Active mg tablet TABLET(S) BY MOUTH 3 TO 4 TIMES A DAY NEEDED. zolpidem (AMBIEN) 10 TAKE ONE (1) 2 11/27/2016 Active mg tablet TABLET(S) BY MOUTH ONCE A DAY. doxepin (ZONALON) 5 % Apply topically 3 09/20/2016 Active cream daily as needed. fluticasone USE TWO (2) 2 01/07/2019 Activ e propionate (FLONASE) SPRAY(S) INTO EACH 50 mcg/actuation NOSTRIL ONCE A DAY. nasal spray omeprazole (PriLOSEC) TAKE ONE (1) 1 12/05/2018 Active 20 MG capsule CAPSULE(S) BY MOUTH ONCE A DAY. nusinersen sodium/PF by intrathecal 0 Active (SPINRAZA, PF, IT) route every 4 (four) months. zoledronic Infuse into a 0 Activ e acid/mannitol-water venous catheter (RECLAST IV) once. colestipol (COLESTID) Take 1 g by mouth 1 04/26/2019 Active 1 gram tablet daily. busPIRone (BUSPAR) 5 Take 5 mg by mouth 1 05/26/2019 Active MG tablet 2 (two) times a day. Active Problems Problem Noted Date At high risk for falls 01/02/2020 Spinal muscular atrophy type III 04/04/2019 Encounters Date Type Specialty Care Team Description 05/12/2020 Hospital Encounter Radiology Tyree Holder MD atrophy type II I (HCC) (Primary Dx) 05/12/2020 Travel 05/11/2020 Orders Only Neurology Kat Chua RN 04/29/2020 Travel 04/23/2020 Telephone Radiology Earline Sheth RN 2020 Orders Only Neurology Harshil Spinal muscular Kat Mills RN atrophy type I II (HCC) (Primary Dx) 01/02/2020 Office Visit Neurology Miriam Gregg, Spinal musc ular atrophy type III (HCC) (Primary Dx); MD At high risk for falls Marino Sanchez MD 01/02/2020 Travel 12/31/2019 Telephone Neurology Marino Sanchez MD 12/24/2019 Hospital Encounter Radiology Tyree Holder MD atrophy type II I (HCC) (Primary Dx) 12/24/2019 Travel 12/23/2019 Travel 12/23/2019 Telephone Radiology Saskia Joyner RN 12/19/2019 Travel 11/26/2019 Orders Only Neurology Kat Chua RN 11/26/2019 Orders Only Neurology Harshil Spinal mikel Mills RN atrophy type I II (HCC) (Primary Dx) 08/13/2019 Hospital Encounter Radiology Tyree Holder MD atrophy type II I (HCC) (Primary Dx) 08/11/2019 Telephone Neurology Yassine Sears RN 08/05/2019 Telephone Neurology Kat Chua RN 08/05/2019 Telephone Radiology Saskia Joyner RN 08/05/2019 Orders Only Neurology Harshil Spinal muscular atrophy type III (HCC) (Primary Dx); Kat Mills RN Pre-procedure lab exam 07/25/2019 Telephone Neurology Kat Chua RN 07/15/2019 Telephone Neurology Miriam Gregg MD 07/11/2019 Office Visit Physical Therapy Tyree Holder SMA (spi nal muscular atrophy) (HCC); MD Marino At high risk for injury related to fall Shaye Clinton, OT 07/11/2019 Office Visit Neurology Miriam Gregg Spinal musc ular atrophy type III (HCC) (Primary Dx); At high risk fo r falls 06/12/2019 Telephone Occupational Therapy Shaye Clinton, OT 06/12/2019 Telephone Neurology Miriam Gregg MD 06/09/2019 Orders Only Neurology Kat Chua RN after 06/08/2019 Surgical History Surgery Date Site/Laterality Comments HIP SURGERY CHOLECYSTECTOMY Medical History Medical History Date Comments SMA (spinal muscular atrophy) (HCC) Spinal muscular atrophy type III (HCC) 04/04/2019 Family History Medical History Relation Name Comments Hyperlipidemia Father Hypertension Father Hypertension Mother Relation Name Status Comments Father Mother Sister Social History Tobacco Use Types Packs/Day Years Used Date Never Smoker Smokeless Tobacco: Never Used Alcohol Use Drinks/Week oz/Week Comments No Sex Assigned at Date Recorded Not on file COVID-19 Exposure Response Date Recorded In the last month, have you been in contact with No / Unsure 05/12/2020 10:55 AM CDT someone who was confirmed or suspected to have Coronavirus / COVID-19? Last Filed Vital Signs Vital Sign Reading Time Taken Comments Blood Pressure 116/65 05/12/2020 1:20 PM CDT Pulse 71 05/12/2020 1:20 PM CDT Temperature 36.8 C (98.2 F) 05/12/2020 1:20 PM CDT Respiratory Rate 19 05/12/2020 1:20 PM CDT Oxygen Saturation 95% 05/12/2020 1:20 PM CDT Inhaled Oxygen Concentration - - Weight 61.2 kg (135 lb) 05/12/2020 11:40 AM CDT Height 165.1 cm (5' 5") 05/12/2020 11:40 AM CDT Body Mass Index 22.47 05/12/2020 11:40 AM CDT Plan of Treatment Health Maintenance Due Date Last Done Comments CERVICAL CANCER SCREENING 1981 BREAST CANCER SCREENING 2010 COLONOSCOPY SCREENING 2010 SHINGLES VACCINES (#1) 2010 INFLUENZA VACCINE 02/21/2020 05/05/2015 Procedures Procedure Name Priority Date/Time Associated Comments Diagnosis IR LUMBAR PUNCTURE Routine 05/12/2020 1:06 Spinal muscular Re sults for this PM CDT atrophy type III procedure a re in ([facility]) the results section. ESTIMATED GFR STAT 05/12/2020 12:19 Results fo r this PM CDT procedure are i n the results section. PROTEIN, URINE, RANDOM STAT 05/12/2020 12:19 R esults for this PM CDT procedure are i n the results section. PROTHROMBIN TIME WITH STAT 05/12/2020 12:19 Re sults for this INR PM CDT procedure are i n the results section. BASIC METABOLIC PANEL STAT 05/12/2020 12:19 Re sults for this PM CDT procedure are i n the results section. CBC HEMOGRAM STAT 05/12/2020 12:19 Results for this PM CDT procedure are i n the results section. HCG QUALITATIVE, URINE Routine 05/12/2020 12:19 R esults for this SCREEN PM CDT procedure are i n the results section. IR LUMBAR PUNCTURE Routine 12/24/2019 10:45 Spinal muscular Re sults for this AM CDT atrophy type III procedure a re in ([facility]) the results section. PROTEIN, URINE, RANDOM Routine [...] Spinal muscular Re sults for this PM CUSTOMER CARE AGENT atrophy type III procedure a re in (HCC) the results section. after 06/08/2019 Results IR Lumbar Puncture by Radiology (05/12/2020 1:06 PM CDT)Only the most recent of 3 resultswithin the time period is included. 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 Findings: Informed consent was obtained. Lower back was prepped and draped in usual sterile fashion. 1% lidocaine was used for local anesthesia. A 27-gauge 3.5 inch needle was advanced into spinal ca nal at the L2-3 level under intermittent fluoroscopic gu idance. 6 cc of clear CSF fluid was withdrawn. Then 12 mg of Spinraza were injected int o the subarachnoid space. No complications. Total fluoroscopic time was less than 0.1 minute. Tota l air kerma was less than 1 mGy. IMPRESSION: Successful fluoroscopic guided lumbar puncture and int rathecal Spinraza injection. 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 Findings: Informed consent was obtained. Lower maxi k was prepped and draped in usual sterile fashion. 1% lidocaine was used for local anesthesia. A 27-gauge 3.5 inch needle was advanced into spinal canal at the L2-3 level under intermittent fluoroscopic guidance. 6 cc of clear CSF fluid was withdrawn. Then 12 mg of Spinraza were injected int o the subarachnoid space. No complications. Total fluoroscopic time was less than 0. 1 minute. Total air kerma was less than 1 mGy. IMPRESSION: Successful fluoroscopic guided lumbar pu ncture and intrathecal Spinraza injection. [id number] Performing Organization Address City/State/ZIP Code Phon e Number [facility] [address] [place] [address] Estimated GFR (05/12/2020 12:19 PM CDT)Only the most recent of2 resultswithin the time period is included. Estimated GFR >=90 mL/min/1.73 [facility] Comment: [address] Catergory Units Interpretation G1 >=90 Normal [...] lity Initiative (NKF-KDOQI) published in 2014. Specimen Plasma Performing Organization Address [facility] Phon e Number [facility] DEPARTMENT OF PATHOLOGY AND [address] [place] [address] [phone] [address] Protein, urine, random (05/12/2020 12:19 PM CDT)Only the most recent of2 results within the time period is included. Pathologist [facility] nature Protein, urine random <4 mg/dL [facility] Specimen Urine Performing Organization Address [facility] Phon e Number [facility] DEPARTMENT OF PATHOLOGY AND [address] [place] [address] [phone] [address] hCG qualitative, urine screen (05/12/2020 12:19 PM CDT) Pathologist [facility] hCG qualitative, NegativeComment: [facility] urine Sensitivity of [facility] test: 25 mIU/mL Specimen Urine Performing Organization Address [facility] Phon e Number [facility] DEPARTMENT OF PATHOLOGY AND [address] [place] [address] [phone] [address] Prothrombin time with INR (05/12/2020 12:19 PM CDT)Only the most recent of2 resultswithin the time period is included. Pathologist [facility] Prothrombin time 13.7 11.5 - 14.5 [facility] INR 1.0 [facility] Comment: VOODOO [facility] International Normalized Ratio (INR) is a [facility]rapeu [facility] monitoring tool for patients who are stable on oral anticoagulant therapy. An INR of 2.0-3.0 is suggested for deep vein thrombosis/pulmonary embolism. Specimen Blood Performing Organization Address City/[facility] Phon e Number [facility] DEPARTMENT OF PATHOLOGY AND [address] [phone] [address] CBC hemogram (05/12/2020 12:19 PM CDT) [facility] WBC 6.64 4.50 - 11.00 k/uL [facility] RBC 3.88 (L) 4.20 - 5.50 m/uL [facility] HGB 12.3 12.0 - 16.0 g/dL [facility] HCT 37.7 37.0 - 47.0 % [facility] MCV 97.2 82.0 - 100.0 fL [facility] MCH 31.7 27.0 - 34.0 pg [facility] MCHC 32.6 31.0 - 37.0 g/dL [facility] RDW - SD 45.1 37.0 - 55.0 fL [facility] MPV 9.6 8.8 - 13.2 fL [facility] Platelet count 221 150 - 400 k/uL [facility] Nucleated RBC 0.00 /100 WBC [facility] Specimen Plasma Performing Organization Address City/[facility] Phon e Number [facility] DEPARTMENT OF PATHOLOGY AND [address] [place], [place] [phone] [address] Basic metabolic panel (05/12/2020 12:19 PM CDT)Only the most recent of2 results within the time period is included. [facility] Sodium 139 135 - 148 mEq/L [facility] Potassium 3.9 3.5 - 5.0 mEq/L [facility] Chloride 100 98 - 112 mEq/L [facility] CO2 25 24 - 31 mEq/L [facility] Anion gap 14@ANIO 7 - 15 mEq/L [facility] BUN 17 8 - 23 mg/dL [facility] Creatinine 0.36 (L) 0.50 - 0.90 mg/dL [facility] Glucose 89 65 - 99 mg/dL [facility] Calcium 9.5 8.8 - 10.2 mg/dL [facility] Specimen Plasma Performing Organization Address City/[facility] Phon e Number [facility] DEPARTMENT OF PATHOLOGY AND [address] [place], [place] [phone] [facility] [address] [place] [phone] Partial thromboplastin time, activated (12/24/2019 9:30 AM CDT) PTT 28.5 23.0 - 36.0 [facility] Comment: [facility] HOSPITAL PTT therapeutic range for unfractionated heparin is 61.0-112.0 seconds which corresponds to Anti-Xa 0.3-0.7 U/ml. Specimen Blood Performing Organization Address City/[facility] Phon e Number [facility] DEPARTMENT OF PATHOLOGY AND [address] [place] [address] [phone] [address] CBC with platelet and differential (12/24/2019 9:30 AM CDT) Pathologist [facility] WBC 8.26 4.50 - 11.00 [facility] k/uL [facility] RBC 3.88 (L) 4.20 - 5.50 [facility] m/[facility] HGB 12.2 12.0 - 16.0 [facility]/dL [facility] HCT 37.8 37.0 - 47.0 % [facility] MCV 97.4 82.0 - 100.0 [facility] MCH 31.4 27.0 - 34.0 pg [facility] MCHC 32.3 31.0 - 37.0 [facility] RDW - SD 46.8 37.0 - 55.0 [facility] MPV 9.7 8.8 - 13.2 [facility] Platelet count 189 150 - 400 k/uL [facility] Nucleated RBC 0.00 /100 WBC [facility] Neutrophils 66.6 39.0 - 69.0 % [facility] Lymphocytes 25.7 25.0 - 45.0 % [facility] Monocytes 5.3 0.0 - 10.0 % [facility] Eosinophils 1.7 0.0 - 5.0 % [facility] Basophils 0.5 0.0 - 1.0 % [facility] Immature granulocytes 0.2Comment: 0.0 - 1.0 % [facility] "Immature HOSPITAL granulocytes" (promyelocytes , myelocytes, metamyelocytes ) Specimen Performing Organization Address City/State/ZIP Code Phon e Number [facility] DEPARTMENT OF PATHOLOGY AND [address] [place], [place] [phone] GENOMIC MEDICINE [facility] [address] [place] [address] after 06/08/2019 Insurance Payer Benefit Plan / Subscriber ID Effective Dates Phone Addre ss Type Group MEDICARE MEDICARE PART A [id number] 2015-Present [facility], [place] Medicare AND B FOR LIFE [id number] 2016-Present M[employer] SUPPLEMENT Advance Directives For more information, please contact: [phone] Type Date Recorded Patient Retrimmer Explanati on Advance Directives, Living Will and Medical Power of Issuer
--- OUTSIDE RECORDS SUMMARY | 2020-06-08 10:35 | XMS REPORT | Summary of Care ---
:1960 Author Organization [facility] - [facility] Address [address] [place] [address] Care Team Providers Name Role Phone Edgard Rowley Primary Care Provider Reason for Referral Radiology Services (Routine) Status Reason Specialty Diagnoses / Referred By Referred To Procedures Contact Contact New Request Diagnostic Diagnoses Nondisplaced comminuted fracture of left patella, initial encounter for closed fracture Philippe Ramos, Radiology Procedures XR KNEE <3 VW LEFT PAC [address] [place] [address] Reason for Visit Reason Comments Follow-up 1 week fu- LT Patella FX DOI 03/03/2020 (Routine) Status Reason Specialty Diagnoses / Procedures Referred By R eferred To Contact Contact Authorized PA-PHYSICIAN Diagnoses NCEP / Right Shoulder Pain - Wants injection Philippe Ramos 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 / Procedures CONSULT/REFERRAL ORTHOPAEDIC SURGERY [place] METHYLPREDNISOLONE 80 MG INJ [place] ARTHROCENTESIS ASPIR&/INJ MAJOR JT/BURSA W/O US FOLLOW-UP VISIT S, PAC S, PAC Orthopedic [address] [place] [phone] Phone: Fax: Encounter Details Date Type Department Care Team Description 03/22/2020 Office Visit [facility] Philippe Ramos, Nondisplaced comminuted Orthopaedic Surgery- PAC fracture of left [place] [address] patella, initial [address] C encounter for closed [address] MURTAZA TIWARI fracture (Primary Dx) MURTA[place] Tiwari [phone] Allergies Active Allergy Reactions Severity Noted [...] as of this encounter (statuses as of 03/22/2020) Medications Medication Sig Dispensed Refills Start Date [...] Right times daily shoulder pain, unspecified chronicity documented as of this encounter (statuses as of 03/22/2020) Active Problems Problem Noted Date Knee pain, acute, left 05/10/2015 documented as of this encounter (statuses as of 03/22/2020) Social History Tobacco Use Types Packs/Day Years Used Date Never Smoker Smokeless Tobacco: Never Used Alcohol Use Drinks/Week oz/Week Comments No 0 Standard drinks or equivalent 0.0 Sex Assigned at Date Recorded Not on file documented as of this encounter Last Filed Vital Signs Vital Sign Reading Time Taken Comments Blood Pressure 115/73 03/22/2020 2:51 PM CDT Pulse 96 03/22/2020 2:51 PM CDT Temperature - - Respiratory Rate - - Oxygen Saturation - - Inhaled Oxygen Concentration - - Weight 61.2 kg (135 lb) 03/22/2020 2:51 PM CDT Height 165.1 cm (5' 5") 03/22/2020 2:51 PM CDT Body Mass Index 22.47 03/22/2020 2:51 PM CDT documented in this encounter Progress Notes Philippe Ramos, PAC - 03/22/2020 2:30 PM CDT Cc: Chief Complaint Patient presents with Follow-up 1 week fu- LT Patella FX DOI 03/03/2020 1 week f/u LT patella FX DOI 03/03/2020 Amena Smalls is a 59 year old female. Follow-up on nondisplaced left patella fracture her pain is greatly improved today she arrived with her knee immobilizer on using her walker for mobility. She was stepping up on a stool trying to get on her bed and she slipped and fell landing on her leftknee and hip she was seen in the emergency department of [facility] x-rays were performedand she didn't have a hip fracture but there was evidence of a possible nondisplaced patella fracture. She had a left knee hemarthrosis and Dr. Avila aspirated 50 cc of blood from her left knee she was placed in a knee immobilizer. She came in today with her walker which she sustained release is for mobility. Allergies Amena is allergic to codeine; nsaids [...] Financial resource strain: Not on file Food insecurity Worry: Not on file Inability: Not on file Transportation needs Medical: Not on file Non-medical: Not on file Tobacco Use Smoking status: Never Smoker Smokeless tobacco: Never Used Substance and Sexual Activity Alcohol use: No Alcohol/week: 0.0 standard drinks Drug use: No Sexual activity: Never Lifestyle Physical activity Days per week: Not on file Minutes per session: Not on file Stress: Not on file Relationships Social connections Talks on phone: Not on file Gets together: Not on file Attends yazdanism service: Not on file Active member of club or organization: Not on file Attends meetings of clubs or organizations: Not on file Relationship status: Not on file Intimate partner violence Fear of current or ex partner: Not [...] Negative. Genitourinary: Negative. Musculoskeletal: Positive for joint swelling. Skin: Negative. Neurological: Negative. Psychiatric/Behavioral: Negative. Endocrine: Endocrine negative Vital Signs There were no vitals taken for this visit. Physical Exam Assessment/Plan 1. Nondisplaced comminuted fracture of left patella, initial encounter for closed fracture XR KNEE <3 VW LEFT She will stay in her knee immobilizer weightbearing as tolerated for one more month we will follow-up then and re-x-ray. documented in this encounter Plan of Treatment Health Maintenance Due Date Last Done Comments HEPATITIS C (HCV) SCREEN 1960 Depression Screening 1972 DTaP,Tdap,and Td Vaccines (1 - 1979 Tdap) PAP SMEAR 1981 Breast Cancer Screening 2000 (MAMMOGRAM) COLON CANCER SCREENING ANNUAL 2010 FIT/FOBT COLON CANCER SCREENING FIT DNA 2010 EVERY 3 YEARS COLON CANCER SCREENING 2010 SIGMOIDOSCOPY EVERY 5 YEARS COLONOSCOPY 2010 Colorectal Cancer Screening 2010 Zoster Recombinant Vaccine 2010 (SHINGRIX) (1 of 2) INFLUENZA VACCINE (#1) 2020 04/22/2018, 05/05/2015 PNEUMOCOCCAL 0-64 YEARS Aged Out No longe r eligible based COMBINED SERIES on patient's age to complete this to pic documented as of this encounter Results XR KNEE <3 VW LEFT (03/22/2020 2:44 PM CDT) Specimen Narrative Performed At This result has an attachment that is no t available. Transverse fracture proximal pole of the patella has not displaced its in PACS good alignment. Performing Organization Address City/State/Zipcode Phone Number PACS documented in this encounter Visit Diagnoses Diagnosis Nondisplaced comminuted fracture of left patella, initial encounter for closed fracture - Primary documented in this encounter Insurance Payer Benefit Plan Subscriber ID Effective Phone Address Typ e / Group Dates MEDICARE MEDICARE PART [id number] 2015-Katelynn [phone] [address] MIGUELINA X Medicare A & B nt [id number] J[place] MERCADO [address] FOR [id number] 2017-Pres Maher edicare LIFE ent Supplement (Work) documented as of this encounter
--- OUTSIDE RECORDS SUMMARY | 2020-06-08 10:35 | XMS REPORT | Continuity of Care Document ---
:1960 Author Organization [facility] t Address [address] [place] [address] Dr. [address]. [address] [place] [address] Care Team Providers Name Role Phone Ember Fournier Primary Care Physician Marino Holder MD Attending Clinician Lina Chua RN Attending Clinician Unavailable Lina Gregory MD Attending Clinician Domenic RN Attending Clinician Unavailable Radhames MURRAY Attending Clinician Benedict Sanchez MD Attending Clinician Ar RN Attending Clinician Unavailable Renu AMATO Attending Clinician Unavailable Mary Beth SUMMERS Attending Clinician Unavailable Philippe Chan Attending Clinician Payers Payer Name Policy Type Policy Effective Date Expiration Date Sour ce Number MEDICAREMEDICARE PART [id number] 2015 Rigoberto Ray AND 00:00:00 Gnosticist [id number] 2014- MURTA[place] GloriaMedicare TRICARETRICARE FOR [id number] 2016 [place] LIFE MCR 00:00:00 Gnosticist [id number]/ 07/2016-PresentMilitar y Problems Condition Condition Condition Status Onset Resolution Last Treating Co mments Source Name Details Category Date Date Treatment Clinician Date At high At high Disease Active [place] risk for risk for 6-12 Method i falls falls 00:00: st 00 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: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 00 Spinal Problem Resolve 2019-01-15 Alan lui cord d 13:03:50 l disorder Spinal Natanael n (disorder) cord disorder (disorder) Resolved Problem 01/15/2019 Medical Group LUMBAR Diagnosis Active 2015-07-19 Mem oria PAIN UDU 16:21:00 l MD WILL LUMBAR [place] FAX PAIN UDU MD WILL FAX Active [facility] Allergies, Adverse Reactions, Alerts Allergy Allergy Status Severity Reaction(s) Onset Inactive Treating Comm ents Source Name Type Date Date Clinician Nsaids Propensi Active Severe Other [place] (Non-Piero ty to 02-17 reaction( Metho di [...] Unknown - See comments Codeine Propensi Active [place] ty to 12-15 Methodi adverse 00:00: st reaction 00 s to drug codeine codeine Active Memoria l [place] ibuprofe ibuprofe Active Memori a n n l Corey Levaquin Levaquin Active Memori a l [place] NSAIDs NSAIDs Active Memoria l [place] Family History Family Member Diagnosis Comments Start Date Stop Date Source Natural father Hyperlipidemia [place] Gnosticist Natural [facility] Natural mother Hypert[facility] Social History Social Habit Start Date Stop Date Quantity Comments Source Sex Assigned At [facility] ethodist Exposure to Not sure [place] Metho dist SARS-CoV-2 (event) Tobacco use and 2020-05-12 2020-05-12 Never used [facility] ethodist exposure 00:00:00 00:00:00 Alcohol intake 2020-05-12 2020-05-12 Current [facility] thodist 00:00:00 00:00:00 non-drinker of alcohol (finding) Smoking Status Start Date Stop Date Source Never smoker Leeroy farnsworth Medications Ordered Filled Start Stop Current Ordering Indication Dosage Frequency Signature Comments Components Source Medication Medication Date Date Medication? Clinician (SIG) Name Name heriberto 2019-07 Yes Q120D by [place] sodium/PF 0-21 intratheca Meth carmen (SPINRAZA, 11:46: l route st PF, IT) 19 every 4 (four) months. zoledronic 2019-07 Yes Infuse [place] acid/mannit 0-21 into a Method i ol-water 11:46: venous st (RECLAST 19 catheter IV) once. busPIRone 2018-07 Yes 5mg [...] l MG / 22:04: day, # 28 [place] Trimethopri 00 tab, 0 m 160 MG Refill(s), Oral Tablet Pharmacy: [Bactrim] [facility] Prilosec 2017-07 Yes PO, Daily, Mem oria 2-06 0 l 21:55: Refill(s) [place] Ambien 2017-07 Yes PO, Memoria 2-06 Bedtime, 0 l 21:55: Refill(s) Corey 00 Soma 2017-07 Yes PO, QID, 0 Memoria 2-06 Refill(s) l 21:55: [place] 00 Tramadol 2017-07 Yes 50 mg, PO, Mem oria 2-06 Q4-6H, PRN l 21:55: Pain, # 20 Corey 00 tab, 0 Refill(s) zolpidem Yes TAKE ONE [place] (AMBIEN) 10 -08 (1) Methodi mg tablet 00:00: TABLET(S) st 00 BY MOUTH ONCE A DAY. carisoprodo Yes TAKE ONE [place] (SOMA) 5- (1) Methodi 350 MG 00:00: TABLET(S) st tablet 00 BY MOUTH TWICE A DAY NEEDED. traMADol Yes TAKE ONE [place] (ULTRAM) 50 11-20 (1) Methodi mg tablet 00:00: TABLET(S) st 00 BY MOUTH 3 TO 4 TIMES A DAY NEEDED. ADVAIR Yes as needed. [place] DISKUS 4-29 Methodi 100-50 00:00: st mcg/dose 00 DISKUS rosuvastati Yes TAKE ONE [place] (CRESTOR) 4-18 (1) Methodi 10 MG 00:00: TABLET(S) st tablet 00 BY MOUTH ONCE A DAY AT BEDTIME. OSPHENA 60 Yes TAKE ONE Wily ston mg tablet 12 (1) Methodi 00:00: TABLET(S) st 00 BY MOUTH ONCE A DAY WITH FOOD. doxepin Yes Q24H Apply Umaña (ZONALON) 09-20 topically Met hodi % cream 00:00: daily as st 00 needed. Vital Signs Vital Name Observation Time Observation Value Comments Source Systolic blood 2020-05-12 13:20:00 116 mm[Hg] Janetteto n Gnosticist pressure Diastolic blood 2020-05-12 13:20:00 65 mm[Hg] Janettet on Gnosticist pressure Heart rate 2020-05-12 13:20:00 71 /min Leeroy Zeng Body temperature 2020-05-12 13:20:00 36.78 Jacy [place] Gnosticist Respiratory rate 2020-05-12 13:20:00 19 /min Janette ton Gnosticist Oxygen saturation in 2020-05-12 13:20:00 95 /min Leeroy Zeng Arterial blood by Pulse oximetry Body height 2020-05-12 11:40:00 165.1 cm Leeroy Zeng Body weight 2020-05-12 11:40:00 61.236 kg Leeroy Zeng BMI 2020-05-12 11:40:00 22.47 kg/m2 Leeroy Zeng Height 2018-06-27 21:54:00 165.1 cm Francisca Nicole Weight 2018-06-27 21:54:00 Francisca Nicole BMI Calculated 2018-06-27 21:54:00 Gianna Luther Heart Rate 2018-06-27 21:54:00 Francisca Crowleyann Temperature Oral (F) 2018-06-27 21:54:00 97.9 F Francisca Nicole Systolic (mm Hg) 2018-06-27 21:54:00 Alan valencia Crowleyann Diastolic (mm Hg) 2018-06-27 21:54:00 Mem orial Corey Procedures Procedure Date / Time Performing Clinician Source Performed IR LUMBAR PUNCTURE 2020-05-12 13:06:00 Tyree Holder HCG QUALITATIVE, URINE 2020-05-12 12:19:00 Tyree Holder on Gnosticist SCREEN Marino CBC HEMOGRAM 2020-05-12 12:19:00 Tyree Holder BASIC METABOLIC PANEL 2020-05-12 12:19:00 Tyree Holder PROTHROMBIN TIME WITH INR 2020-05-12 12:19:00 Tyree Holder PROTEIN, URINE, RANDOM 2020-05-12 12:19:00 Tyree Holder on Azucena Pichardo ESTIMATED GFR 2020-05-12 12:19:00 Tyree Holder IR LUMBAR PUNCTURE 2019-12-24 10:45:57 Tyree Holder PROTEIN, URINE, RANDOM 2019-12-24 09:45:00 Tyree Holder HC COMPLETE BLD COUNT 2019-12-24 09:30:00 Tyree Holder W/AUTO DIFF Mar[place] BASIC METABOLIC PANEL 2019-12-24 09:30:00 Tyree Holder PROTHROMBIN TIME WITH INR 2019-12-24 09:30:00 Tyree Holder PARTIAL THROMBOPLASTIN 2019-12-24 09:30:00 Tyree Holder on Gnosticist TIME (PTT) Marino ESTIMATED GFR 2019-12-24 09:30:00 GloryTyree Leeroy Meth odist Marino IR LUMBAR PUNCTURE 2019-08-13 13:42:57 Tyree Holder M ethodist Marino Cholecystectomy [facility] Hip joint operations [facility] Plan of Care Planned Activity Planned Date Details Comments Source Future Scheduled 2020-02-21 INFLUENZA VACCINE [place] Gnosticist Test 00:00:00 [code = INFLUENZA VACCINE] Future Scheduled 2010 BREAST CANCER [place] Me thodist Test 00:00:00 SCREENING [code = BREAST CANCER SCREENING] Future Scheduled 2010 COLONOSCOPY SCREENING [facility] Gnosticist Test 00:00:00 [code = COLONOSCOPY SCREENING] Future Scheduled 2010 SHINGLES VACCINES [place] Gnostic[place] Test 00:00:00 (#1) [code = SHINGLES VACCINES (#1)] Future Scheduled 1981 Screening for [facility] thodist Test 00:00:00 malignant neoplasm of cervix (procedure) [code = 080912072] Encounters Start End Encounter Admission Attending Care Care Encounter Source Date/Time Date/Time Type Type Clinicians Facility Department ID 2020-05-12 2020-05-12 Outpatient [facility], [facility] [id number] [place] 00:00:00 00:00:00 TYREE [address] 2020-05-05 2020-05-05 Office [facility] [id number] 14:02:44 15:17:46 Visit [facility] [id number] Surgical [id number] Specialti [id number] Vincent 2020-01-02 2020-01-02 Outpatient RADHAMES, [facility] [id number] [place] 00:00:00 00:00:00 RASHIDA [address] 2019-12-24 2019-12-24 Outpatient ONHOFF, [facility] [id number] [place] 00:00:00 00:00:00 TYREE [address] 2019-08-13 2019-08-13 Outpatient THONHOALIDA, [facility] [id number] [place] 00:00:00 00:00:00 TYREE [address] 2018-06-27 2018-06-27 Outpatient Le, [facility] [id number] 15:45:00 23:59:59 [facility] 00 T Results Test Description Test Time Test Comments Results Result Comments Source Protein, urine, random 2020-05-12 13:52:29 Test Item Value Reference Range Interpretation Comme nts Protein, urine random (test code = 2888-6) <4 mg/dL Leeroy TsangistIR Lumbar Puncture by [id number] 13:49:33Hm Interface, Radiology Results 05/12/2020 1:52 PM CDTEXAMINATION: IR LUMBAR PUNCTURECLINICAL HISTORY: G12.1 Other inherited spinal muscular atrophy, Spinraza injectionCOMPARISON: None.Findings:Informed consent was obtained. Lower back was prepped and draped in usual sterile fashion. 1%lidocaine was used for local anesthesia. A 27-gauge 3.5 inch needle was advanced into spinal canal at the L2-3 level under intermittent fluoroscopic guidance. 6 cc of clear CSF fluid was withdrawn. Then 12 mg of Spinraza were injected into the subarachnoid space.No complications.Total fluoroscopic time was less than 0.1 minute. Total air kerma was less than 1 mGy.IMPRESSION:Successful fluoroscopic guided lumbar puncture and intrathecal Spinraza injection.[id number] [id number] 13:21:49 Test Item Value Reference Range Interpretation Comments Sodium (test code = 2951-2) 139 135- 148 mEq/L Potassium (test code = 2823-3) 3.9 3.5- 5.0 mEq/L Chloride (test code = 2075-0) 100 98- 112 mEq/L CO2 (test code = 2027-9) 25 24- 31 mEq/L Anion gap (test code = 72945-9) 14@ANIO 7- 15 mEq/L BUN (test code = 3094-0) 17 mg/dL 8-23 Creatinine (test code = 2160-0) 0.36 mg/dL 0.5-0.9 L Glucose (test code = 2345-7) 89 mg/dL 65-99 Calcium (test code = 03643-6) 9.5 mg/dL 8.8-10.2 Lab Interpretation (test code = Abnormal 97802-4) Leeroy TsangistEstimated [id number] 13:21:49 Test Item Value Reference Range Interpretation Comments Estimated GFR (test >=90 mL/min/1.73 m2 Chelly gardner Units code = 5488) InterpretationG 1 >=90 Normal or highG2 60-89 Mildly frffguugiO8b 45-59 Mildly to mode rately fgfztbttkF9p 30-44 Moderately to severely decreasedG4 15-29 Severely decre asedG5 <15 Kidn ey failureThe eGFR was calculated duy sher the Chronic Kidney Disease Epidemiology Co llaboration (CKD-EPI) equat ion. Interpretation is based on recommendations of the National Kidney Foundation-Kidn ey Disease Outcomes Qualit y Initiative (NKF-KDOQI) pub lished in 2013. Leeroy ZenghCG qualitative, urine [id number] 12:58:25 Test Item Value Reference Range Interpretation Comments hCG qualitative, Negative Sensitivity of HCG test: urine (test code = 25 mIU/mL 2106-3) Leeroy ZengProthrombin time with [id number] 12:57:51 Test Item Value Reference Range Interpretation Comments Prothrombin time (test 13.7 11.5- 14.5 sec code = 5902-2) INR (test code = 1.0 The Interna tional 20965-2) Normalized Rati o (INR) is a therapeutic m onitoring tool for patien ts who are stable on oral anticoagulant t herapy. An INR of 2.0-3.0 is suggested for d eep vein thrombosis/pulm onary embolism. Leeroy ZengCBC [id number] 12:45:54 Test Item Value Reference Range Interpretation Comments WBC (test code = 86324-5) 6.64 4.50- 11.00 k/uL RBC (test code = 43438-7) 3.88 m/uL 4.2-5.5 L HGB (test code = 718-7) 12.3 g/dL 12-16 HCT (test code = 4544-3) 37.7 % 37-47 MCV (test code = 787-2) 97.2 fL 82-100 MCH (test code = 785-6) 31.7 pg 27-34 MCHC (test code = 786-4) 32.6 g/dL 31-37 RDW - SD (test code = 96523-2) 45.1 fL 37-55 MPV (test code = 62572-2) 9.6 fL 8.8-13.2 Platelet count (test code = 221 150- 400 k/uL 44627-3) Nucleated RBC (test code = 0.00 /100 WBC 95780-6) Lab Interpretation (test code = Abnormal 38822-1) Umaña MethodistPartial thromboplastin time, [id number] 10:02:42 Test Item Value Reference Range Interpretation Comments PTT (test code = 28.5 23.0- 36.0 [place] [address]-6) unfractionated heparin is61.0-112.0 se conds which corresponds to Anti-Xa0.3-0.7 U/ml. Umaña MethodistCBC with platelet and [id number] 09:44:16 Test Item Value Reference Range Interpretation Comments WBC (test code = 74672-9) 8.26 4.50- 11.00 k/uL RBC (test code = 93619-5) 3.88 m/uL 4.2-5.5 L HGB (test code = 718-7) 12.2 g/dL 12-16 HCT (test code = 4544-3) 37.8 % 37-47 MCV (test code = 787-2) 97.4 fL 82-100 MCH (test code = 785-6) 31.4 pg 27-34 MCHC (test code = 786-4) 32.3 g/dL 31-37 RDW - SD (test code = 46.8 fL 37-55 95456-1) MPV (test code = 97256-4) 9.7 fL 8.8-13.2 Platelet count (test code 189 150- 400 k/uL = 73434-2) Nucleated RBC (test code 0.00 /100 WBC = 84852-5) Neutrophils (test code = 66.6 % 39-69 57961-0) Lymphocytes (test code = 25.7 % 25-45 39897-7) Monocytes (test code = 5.3 % 0-10 04081-0) Eosinophils (test code = 1.7 % 0-5 54517-5) Basophils (test code = 0.5 % 0-1 93327-0) Immature granulocytes 0.2 % 0-1 "Immat ure (test code = 17902-4) granul ocytes" (promyelocytes, myelocytes, metamyelocytes) Lab Interpretation (test Abnormal code = 57068-2) Leeroy Zeng
--- OUTSIDE RECORDS SUMMARY | 2020-06-08 10:35 | XMS REPORT | Continuity of Care Document ---
:1960 Author Organization [facility] Care Team Providers Name Role Phone [facility] Unavailable Un available Problems Problem Status Onset Classification Date Comments Sourc e Date Reported Spinal cord Resolved Problem 01/15/2019 Medi daniel disorder Group (disorder) LUMBAR PAIN Active [facility] UDU WILL [facility] Medications Medication Details Route Status Patient Ordering Order Source Instructions Provider Date Sulfamethoxazole 1 tab, PO, No 800 MG / BID, X 14 Longer 018 Medical Trimethoprim 160 MG day, # 28 Active Gr oup Oral Tablet tab, 0 [Bactrim] Refill(s), Pharmacy: [facility] [place] Prilosec PO, Daily, Active 0 Refill(s) 018 [...] Number For Provider Date Date Visit Outpatient [id number] [facility] 06/27 Act shaylee [facility] [id number] [facility] 06/27 06/28 Care Medical Clear Group Cho Procedures Procedure Code Date Perfomer Comments Source Cholecystectomy [id number] Medica l Group Hip joint operations [id number] [facility] edical Group Assessment and Plan No Data [...]
--- OUTSIDE RECORDS SUMMARY | 2020-06-08 10:35 | XMS REPORT | Summary of Care ---
:1960 Author Organization [facility] - [facility] Address [address] [place] [address] Care Team Providers Name Role Phone Edgard Rowley Primary Care Provider Reason for Referral Radiology Services (Routine) Status Reason Specialty Diagnoses / Referred By Referred To Procedures Contact Contact New Request Diagnostic Diagnoses Nondisplaced comminuted fracture of left patella, initial encounter for closed fracture Philippe Rmaos, Radiology Procedures XR KNEE <3 VW LEFT PAC [address] [place] [address] Reason for Visit Reason Comments Follow-up 1 week fu- LT Patella FX DOI 03/03/2020 (Routine) Status Reason Specialty Diagnoses / Procedures Referred By R eferred To Contact Contact Authorized PA-PHYSICIAN Diagnoses NCEP / Right Shoulder Pain - Wants injection 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 / Procedures CONSULT/REFERRAL ORTHOPAEDIC SURGERY [place] METHYLPREDNISOLONE 80 MG INJ [place] ARTHROCENTESIS ASPIR&/INJ MAJOR JT/BURSA W/O US FOLLOW-UP VISIT S, PAC S, PAC Orthopedic [address] [place] [phone] Phone: Fax: Encounter Details Date Type Department Care Team Description 03/22/2020 Office Visit [facility] Philippe Ramos, Nondisplaced comminuted Orthopaedic Surgery- PAC fracture of left [place] [address] patella, initial [address] C [...] was seen in the emergency department of [facility] x-rays were performedand she didn't have a [...] file Gets together: Not on file Attends congregational service: Not on file Active member of [...] e / Group Dates MEDICARE MEDICARE PART [id number] 2015-Katelynn [phone] P. [address]. MIGUELINA X Medicare A & B nt 82 [id number] JOHNSON MERCADO [phone] FOR [id number] 2017-Pres Maher edicare LIFE ent Supplement (Work) documented as of this encounter
--- OUTSIDE RECORDS SUMMARY | 2020-06-08 10:36 | XMS REPORT | Summary of Care ---
:1960 Author Organization [facility] - [facility] Address [address] [place] [address] Care Team Providers Name Role Phone Edgard Rowley Primary Care Provider Reason for Visit Radiology Services (Routine) Status Reason Specialty Diagnoses / Referred By Referred To Procedures Contact Contact New Request Diagnostic Diagnoses Nondisplaced comminuted fracture of left patella, initial encounter for closed fracture Philippe Ramos, Radiology Procedures XR KNEE <3 VW LEFT PAC [address] [place] [address] Encounter Details Date Type Department Care Team Description 03/22/2020 Hospital Encounter [facility] Philippe Ramos , [facility] Orthopedics - PAC Radiology [address] [place] [phone] Allergies Active Allergy Reactions Severity Noted [...] as of this encounter (statuses as of 03/23/2020) Medications Medication Sig Dispensed Refills Start Date [...] as of this encounter (statuses as of 03/23/2020) Active Problems Problem Noted Date Knee pain, acute, left 05/10/2015 documented as of this encounter (statuses as of 03/23/2020) Social History Tobacco Use Types Packs/Day Years Used Date Never Smoker Smokeless Tobacco: Never Used Alcohol Use Drinks/Week oz/Week Comments No 0 Standard drinks or equivalent 0.0 Sex Assigned at Date Recorded Not on file documented as of this encounter Last Filed Vital Signs Not on filedocumented in this encounter Plan of Treatment Date Type Specialty Care Team Description 04/15/2020 Office Visit Orthopedic Surgery Philippe Ramos, ISAIAS [address] [place] [phone] Health Maintenance Due Date Last Done Comments [...] on patient's age to complete this to [facility] documented as of this encounter Procedures Procedure Name Priority Date/Time Associated Diagnosis Comme nts XR KNEE <3 VW LEFT Routine 03/22/2020 2:44 Nondisplaced Resul ts for this PM CDT comminuted fracture procedur e are in of left patella, the results initial encounter for sectio n. closed fracture documented in this encounter Results XR KNEE <3 VW LEFT (03/22/2020 2:44 PM CDT) Specimen Narrative Performed At This result has an attachment that is no t available. Transverse fracture proximal pole of the patella has not displaced its in PACS good alignment. Performing Organization Address City/State[facility] Phone Number PACS documented in this encounter Visit Diagnoses Diagnosis Nondisplaced comminuted fracture of left patella, initial encounter for closed fracture documented in this encounter Insurance Payer Benefit Plan Subscriber ID Effective Phone Address Typ e / Group Dates MEDICARE MEDICARE PART [id number] 2015-Katelynn [phone] [address] X Medicare A & B nt 82 [id number] JOH[place] MERCADO [phone] FOR [id number] 2017-Pres Gunnar herr LIFE ent Supplement (Work) documented as of this encounter
--- OUTSIDE RECORDS SUMMARY | 2020-06-08 10:36 | XMS REPORT | Summary of Care ---
:1960 Author Organization [facility] - [facility] Address [address] [place] [address] Care Team Providers Name Role Phone Edgard Rowley Primary Care Provider Reason for Referral Radiology Services (Routine) Status Reason Specialty Diagnoses / Referred By Referred To Procedures Contact Contact New Request Diagnostic Diagnoses Nondisplaced comminuted fracture of left patella, initial encounter for closed fracture Philippe Ramos, Radiology Procedures XR KNEE <3 VW LEFT PAC [address] [place] [address] Reason for Visit Reason Comments Follow-up 1 month follow up LT patella fx (Routine) Status Reason Specialty Diagnoses / Procedures Referred By R katherynerred To Contact Contact Authorized PA-PHYSICIAN Diagnoses NCEP / Right Shoulder Pain - Wants injection 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 Ramos 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 CONSULT/REFERRAL ORTHOPAEDIC SURGERY [place] METHYLPREDNISOLONE 80 MG INJ [place] ARTHROCENTESIS ASPIR&/INJ MAJOR JT/BURSA W/O US FOLLOW-UP VISIT S, PAC S, PAC Orthopedic [address] [place] [phone] Phone: Fax: Encounter Details Date Type Department Care Team Description 04/15/2020 Office Visit [facility] Philippe Ramos, Nondisplaced comminuted Orthopaedic Surgery- PAC fracture of left [place] [address] patella, initial [address] encounter for closed [address] [place] fracture (Primary Dx) Karie, [place] [phone] Allergies Active Allergy Reactions Severity [...] as of this encounter (statuses as of 04/15/2020) Medications Medication Sig Dispensed Refills Start Date [...] as of this encounter (statuses as of 04/15/2020) Active Problems Problem Noted Date Knee pain, acute, left 05/10/2015 documented as of this encounter (statuses as of 04/15/2020) Social History Tobacco Use Types Packs/Day Years Used Date Never Smoker Smokeless Tobacco: Never Used Alcohol Use Drinks/Week oz/Week Comments No 0 Standard drinks or equivalent 0.0 Sex Assigned at Date Recorded Not on file COVID-19 Exposure Response Date Recorded In the last month, have you been in contact with No / Unsure 04/15/2020 1:10 PM CDT someone who was confirmed or suspected to have Coronavirus / COVID-19? documented as of this encounter Last Filed Vital Signs Vital Sign Reading Time Taken Comments Blood Pressure 124/76 04/15/2020 1:09 PM CDT Pulse 75 04/15/2020 1:09 PM CDT Temperature - - Respiratory Rate - - Oxygen Saturation - - Inhaled Oxygen Concentration - - Weight - - Height - - Body Mass Index - - documented in this encounter Progress Notes Philippe Ramos, PAC - 04/15/2020 1:00 PM CDT Cc: Chief Complaint Patient presents with Follow-up 1 month follow up LT patella fx 1 month follow up Left patella fx DOI 03/03/2020 Amena Smalls is a 59 [...] was seen in the emergency department of [facility] x-rays were performedand she didn't have a [...] file Gets together: Not on file Attends islam service: Not on file Active member of [...] vitals taken for this visit. Physical Exam Musculoskeletal: Comments: Physical Exam Constitutional: oriented to person, place, [...] content normal. Nursing note and vitals reviewed. There is no defect in her knee And only very slight discomfort. Assessment/Plan 1. Nondisplaced comminuted fracture of left patella, initial encounter for closed fracture XR KNEE <3 VW LEFT She is at 6 weeks status post transverse nondisplaced fracture left patella doing well in her knee immobilizer. At this point she can come out of the knee immobilizer and gently work on range of motion to comfort she also needs to work on a straight leg raise exercise program we will follow-up as needed only. documented in this encounter Plan of Treatment Name Type Priority Associated Diagnoses Date/Ti me XR KNEE <3 VW LEFT IMAGING Routine Nondisplaced comminute d 04/15/2020 1:09 PM CDT fracture of left patella, initial encounter for closed fracture Name Type Priority Associated Diagnoses Order S chedule XR KNEE <3 VW LEFT IMAGING Routine Nondisplaced comminute d Expected: 04/15/2020, fracture of left patella, Ex chito: 04/15/2021 initial encounter for closed fracture Health Maintenance Due Date Last Done Comments [...] on patient's age to complete this to [facility] documented as of this encounter Results Not on filedocumented in this encounter Visit Diagnoses Diagnosis Nondisplaced comminuted fracture of left patella, initial encounter for closed fracture - Primary documented in this encounter Insurance Payer Benefit Plan Subscriber ID Effective Phone Address Typ e / Group Dates MEDICARE MEDICARE PART [id number] 2015-Katelynn [phone] [address] X Medicare A & B nt 82 [id number] J[place] [phone] FOR [id number] 2017-Pres Gunnar herr LIFE ent Supplement (Work) documented as of this encounter
--- OUTSIDE RECORDS SUMMARY | 2020-06-08 10:36 | XMS REPORT | Summary of Care ---
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 / Procedures CONSULT/REFERRAL ORTHOPAEDIC SURGERY [place] METHYLPREDNISOLONE 80 MG INJ [place] ARTHROCENTESIS ASPIR&/INJ MAJOR JT/BURSA W/O US FOLLOW-UP VISIT PAC S, PAC Orthopedic [address] [facility] [address] [place] Phone: [phone] Phone: Encounter Details Date Type Department Care Team Description 05/05/2020 Office Visit [facility] Orthopaedic Christian Gregory ight shoulder pain, Surgery- Karie Mills MD unspecified chronicity [address], [address] (Primary Dx) [place] [address] [place], [place] [phone] Allergies Active Allergy Reactions Severity Noted [...] as of this encounter (statuses as of 05/19/2020) Medications Medication Sig Dispensed Refills Start Date [...] as of this encounter (statuses as of 05/19/2020) Active Problems Problem Noted Date Knee pain, acute, left 05/10/2015 documented as of this encounter (statuses as of 05/19/2020) Social History Tobacco Use Types Packs/Day Years [...] Sign Reading Time Taken Comments Blood Pressure 115/67 05/05/2020 2:08 PM CDT Pulse 90 05/05/2020 2:08 PM CDT Temperature - - Respiratory Rate 16 05/05/2020 2:08 PM CDT Oxygen Saturation - - Inhaled Oxygen Concentration - - Weight 61.2 kg (135 lb) 05/05/2020 2:08 PM CDT Height 165.1 cm (5' 5") 05/05/2020 2:08 PM CDT Body Mass Index 22.47 05/05/2020 2:08 PM CDT documented in this encounter Progress Notes Sisi Hsu, NICK - 05/05/2020 3:30 PM CDT Cc: Chief Complaint Patient presents with Follow-up Rt shoulder pain INJECTION cortisone Rt shoulder pain, patient requesting cortisone injection Amena Smalls is a 60 year old female. Shoulder Pain The pain is present in the right shoulder. This is a chronic problem. The current episode started more than 1 year ago. There has been no history of extremity trauma. The problem occurs constantly. Theproblem has been waxing and waning. The quality of the pain is described as aching and sharp. The pain is at a severity of 7/10. The pain is moderate. Associated symptoms include an inability to bear weight, joint swelling and a limited range of motion. The symptoms are aggravated by activity. She hastried NSAIDS, rest and movement for the symptoms. The treatment provided mild relief. Allergies Amena is allergic to codeine; nsaids (non-steroidal anti-inflammatory drug); levofloxacin; hydrocodone; and ibuprofen. Medications Outpatient Medications Prior to Visit Medication Sig Dispense Refill Diclofenac Sodium (VOLTAREN) 1 % gel Apply 2mg - 4mg to affected area four times daily 100 g 1 PREMARIN 0.625 mg/gram cream OSPHENA 60 mg tablet lidocaine 5 % ointment carisoprodol (SOMA) 350 mg tablet Take 350 mg by mouth 4 (four) times daily. rosuvastatin (CRESTOR) 20 mg tablet Take 20 mg by mouth at bedtime. omeprazole (PRILOSEC) 20 mg capsule Take 20 mg by mouth daily. Tramadol (RYBIX ODT) 50 mg TbDL Take by mouth. zolpidem (AMBIEN) 10 mg tablet Take 10 mg by mouth at bedtime as needed for Insomnia. ADVAIR DISKUS 100-50 mcg/dose inhalation disk pravastatin (PRAVACHOL) 20 mg tablet Take 20 mg by mouth at bedtime. tiZANidine (ZANAFLEX) 4 mg capsule Take 4 mg by mouth 3 (three) times daily. No facility-administered medications prior to visit. Histories [...] standard drinks Drug use: No Sexual activity: Yes Partners: Male control/protection: None Lifestyle Physical activity Days per week: Not on file Minutes per session: Not on file Stress: Not on file Relationships Social connections Talks on phone: Not on file Gets together: Not on file Attends denominational service: Not on file Active member of [...] Negative. Endocrine: Endocrine negative Vital Signs BP 115/67 (BP Location: Right arm, Patient Position: Sitting, BP CUFF SIZE: Adult Medium) | Pulse 90 | Resp 16 | Ht 65" (165.1 cm) | Wt 61.2 kg (135 lb) | BMI 22.47 kg/m Physical Exam Vitals signs and nursing note reviewed. Musculoskeletal: Right shoulder: She exhibits decreased range of motion, pain and decreased strength. Comments: General: Well-developed well-nourished oriented to person place and time HEENT normocephalic atraumatic atraumatic pupils equal round reactive to light extraocular muscles intact Cervical thoracic and lumbar spine without focal deficit normal kyphosis and lordosis Chest clear to auscultation and percussion Cardiovascular regular rate and rhythm without gallop rub or murmur soft without organomegaly Normal bowel sounds Neurologic: Focal myotome or dermatomal deficits Vascular: Intact symmetrical bilateral upper and lower extremities Skin without stasis varicosities or breakdown Extremities without cyanosis clubbing or edema Lymphatics no peripheral lymphedema Psych normal mood and affect. Neurovascular function is intact. To include brisk capillary refill warm pink skin active motor function and sensory function intact. Assessment/Plan Right shoulder pain, unspecified chronicity [M25.511] Patient received an ultrasound guided injection of [...] on patient's age to complete this to [facility] documented as of this encounter Results Not on filedocumented in this encounter Visit Diagnoses Diagnosis Right shoulder pain, unspecified chronic ity - Primary documented in this encounter Insurance Payer Benefit Plan Subscriber ID Effective Phone Address Typ e / Group Dates MEDICARE MEDICARE PART [id number] 2015-Katelynn [phone] [address] X Medicare A & B nt 82 [id number] JOH[place] MERCADO [phone] FOR [id number] 2017-Pres Gunnar herr LIFE ent Supplement (Work) documented as of this encounter
--- OUTSIDE RECORDS SUMMARY | 2020-06-08 10:36 | XMS REPORT | Summary of Care ---
:1960 Author Organization [facility] - [facility] Address [address] [place] [address] Care Team Providers Name Role Phone Edgard Rowley Primary Care Provider Reason for Referral Radiology Services (Routine) Status Reason Specialty Diagnoses / Referred By Referred To Procedures Contact Contact New Request Diagnostic Diagnoses Nondisplaced comminuted fracture of left patella, initial encounter for closed fracture Philippe Ramos, Radiology Procedures XR KNEE <3 VW LEFT PAC [address] [place] [address] Reason for Visit Reason Comments Follow-up 1 month follow up LT patella fx (Routine) Status Reason Specialty Diagnoses / Procedures Referred By R katherynerred To Contact Contact Authorized PA-PHYSICIAN Diagnoses NCEP / Right Shoulder Pain - Wants injection 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 CONSULT/REFERRAL ORTHOPAEDIC SURGERY [place] METHYLPREDNISOLONE 80 MG INJ [place] ARTHROCENTESIS ASPIR&/INJ MAJOR JT/BURSA W/O US FOLLOW-UP VISIT S, PAC S, PAC Orthopedic [address] [phone] Phone: Fax: Encounter Details Date Type Department Care Team Description 04/15/2020 Office Visit [facility] Philippe Ramos, Nondisplaced comminuted Orthopaedic Surgery- PAC fracture of left [place] [address] patella, initial [address] encounter [...] was seen in the emergency department of [facility] x-rays were performedand she didn't have [...] file Gets together: Not on file Attends christian service: Not on file Active member of [...] on patient's age to complete this to [facility] documented as of this encounter Results Not on filedocumented in this encounter Visit Diagnoses Diagnosis Nondisplaced comminuted fracture of left patella, initial encounter for closed fracture - Primary documented in this encounter Insurance Payer Benefit Plan Subscriber ID Effective Phone Address Typ e / Group Dates MEDICARE MEDICARE PART [id number] 2015-Katelynn [phone] [address]ELINA X Medicare A & B nt 82 [id number] J[place] MERCAD[place] [phone] FOR [id number] 2017-Pres Gunnar herr LIFE ent Supplement (Work) documented as of this encounter
--- OUTSIDE RECORDS SUMMARY | 2020-06-08 10:36 | XMS REPORT | Summary of Care ---
:1960 Author Organization [facility] - [facility] Address [address] [place] [address] Care Team Providers Name Role Phone Edgard Rowley Primary Care Provider Reason for Visit Radiology Services (Routine) Status Reason Specialty Diagnoses / Referred By Referred To Procedures Contact Contact New Request Diagnostic Diagnoses Nondisplaced comminuted fracture of left patella, initial encounter for closed fracture Philippe Ramos, Radiology Procedures XR KNEE <3 VW LEFT PAC [address] [place] [address] Encounter Details Date Type Department Care Team Description 04/15/2020 Hospital Encounter [facility] Philippe Ramos , [facility] Orthopedics - PAC Radiology [address] [place] [phone] Allergies Active Allergy Reactions Severity [...] as of this encounter (statuses as of 04/16/2020) Medications Medication Sig Dispensed Refills Start Date [...] as of this encounter (statuses as of 04/16/2020) Active Problems Problem Noted Date Knee pain, acute, left 05/10/2015 documented as of this encounter (statuses as of 04/16/2020) Social History Tobacco Use Types Packs/Day Years [...] filedocumented in this encounter Plan of Treatment Health [...] on patient's age to complete this to [facility] documented as of this encounter Procedures Procedure Name Priority Date/Time Associated Diagnosis Comme nts XR KNEE <3 VW LEFT Routine 04/15/2020 1:09 PM CDT Nondisplace d comminuted fracture of left patella, initial encounter for closed fracture documented in this encounter Results XR KNEE <3 VW LEFT (04/15/2020 1:09 PM CDT) Specimen Narrative Performed At This result has an attachment that is no t available. Performing Organization Address City/State/[facility] Phone Number PACS documented in this encounter Visit Diagnoses Diagnosis Nondisplaced comminuted fracture of left patella, initial encounter for closed fracture documented in this encounter Insurance Payer Benefit Plan Subscriber ID Effective Phone Address Typ e / Group Dates MEDICARE MEDICARE PART [id number] 2015-Katelynn [phone] [address]INA X Medicare A & B nt 82 [id number] JOHNSON MERCADO [phone] FOR [id number] 2017-Pres Gunnar herr LIFE ent Supplement (Work) documented as of this encounter
--- OUTSIDE RECORDS SUMMARY | 2020-06-08 10:37 | XMS REPORT | Summary of Care ---
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 CONSULT/REFERRAL ORTHOPAEDIC SURGERY [place] METHYLPREDNISOLONE 80 MG INJ [place] ARTHROCENTESIS ASPIR&/INJ MAJOR JT/BURSA W/O US FOLLOW-UP VISIT PAC S, PAC Orthopedic [address] [facility] [address] [place] Phone: [phone] Phone: Encounter Details Date Type Department Care Team Description 05/05/2020 Office Visit [facility] Orthopaedic Christian Gregory ight shoulder pain, Surgery- Karie Mills MD unspecified chronicity [address], [address] (Primary Dx) [address] [place] [address] [place] [address] [place] [phone] Allergies Active Allergy Reactions Severity Noted [...] file Gets together: Not on file Attends zoroastrianism service: Not on file Active member of [...] on patient's age to complete this to [facility] documented as of this encounter Results Not on filedocumented in this encounter Visit Diagnoses Diagnosis Right shoulder pain, unspecified chronic ity - Primary documented in this encounter Insurance Payer Benefit Plan Subscriber ID Effective Phone Address Typ e / Group Dates MEDICARE MEDICARE PART [id number] 2015-Katelynn [phone] [address] MIGUELINA X Medicare A & B nt 82 [id number] JOHNSON MERCADO [phone] FOR [id number] 2017-Pres Gunnar herr LIFE ent Supplement (Work) documented as of this encounter
[2020-06-08 11:06] VITALS: BP 136/71; TEMP 98.9; O2SAT 97; BMI 22.4
== END 2020-06-08 11:14 | disposition home health service (06) ==
LOC: DS 10:20
PROVIDERS: ATTEND Clinical Nurse Specialist Women's Health
DX: M81.8 Other osteoporosis without current pathological fracture (principal)
CPT/HCPCS: 96365; J3489

== ENCOUNTER 2021-06-23 12:15 | Day surgery (SDC) | payer OTHER ==
[~2021-06-23 12:15] MED LIST: Zoledronic Acid/Mannitol/Water 5 MG/100 ML INFUS.BOT IV ONE
[2021-06-23] MEDS ORDERED: Zoledronic Acid/Mannitol/Water 5 MG/100 ML INFUS.BOT IV ONE (13:00)
[2021-06-23 13:48] VITALS: BP 122/86; TEMP 97.6; O2SAT 98; BMI 24.1
== END 2021-06-23 13:11 | disposition home or self-care (01) ==
LOC: DS 12:15
PROVIDERS: ATTEND Clinical Nurse Specialist Women's Health
DX: M81.8 Other osteoporosis without current pathological fracture (principal)
CPT/HCPCS: 96365; J3489

== ENCOUNTER 2022-01-07 14:19 | Emergency (ER) | payer OTHER ==
--- OUTSIDE RECORDS SUMMARY | 2022-01-07 14:23 | XMS REPORT | Continuity of Care Document ---
:1960 Author Organization [facility] t Address [address] [place] [address] Care Team Providers Name Role Phone Ember Daniel Primary Care Physician Rachel ESPARZA, S Attending Clinician Colt MURRAY, L Attending Clinician Doctor Unassigned, Name Attending Clinician Unavailable JAVI Attending Clinician Unavailable LJ Attending Clinician Unavailable VRABEC Attending Clinician Unavailable JIMBO Attending Clinician Unavailable DINORA Attending Clinician Unavailable RADHAMES Attending Clinician Unavailable Payers Payer Name Policy Type Policy Number Effective Date Expiration Date S ource Problems Condition Condition Condition Status Onset Resolution Last Treating Co mments Source Name Details Category Date Date Treatment Clinician Date At high At high Disease Active Univers risk for risk for 6-12 ity of falls falls 00:00: [place] 00 Medical Branch 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:00: [place]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 00 Medica l Branch Knee pain, Knee pain, Disease Active 2014-07 U nivers acute, acute, 0-19 ity of left left 00:00: [place] 00 Medical Branch Spinal Problem Resolve 2019-01-15 Alan lui cord d 13:03:50 l disorder Spinal Natanael n (disorder) cord disorder (disorder) Resolved Problem 01/15/2019 Medical Group LUMBAR Diagnosis Active 2015-07-19 Mem oria PAIN UDU 16:21:00 l MD WILL LUMBAR [place] FAX PAIN UDU MD WILL FAX Active [facility] Allergies, Adverse Reactions, Alerts Allergy Allergy Status Severity Reaction(s) Onset Inactive Treating Comm ents Source Name Type Date Date Clinician Nsaids Propensi Active Nausea Univers (Non-Piero ty to and/or 02-17 ity of roidal adverse Vomiting 00:00: [place] Anti-Inf reaction 00 Medica l lammator s Branch y Drug) Hydrocod Propensi Active Nausea Univer s one ty to and/or 1-18 ity of adverse Vomiting 00:00: [place] reaction Medical s Branch Ibuprofe Propensi Active Unknown - Uni vers n ty to See comments 1-18 ity of adverse 00:00: [place] reaction Medical s Branch Levoflox Propensi Active Other - See U nivers acin ty to comments 1-18 ity of adverse 00:00: [place] reaction Medical s Branch Codeine Propensi Active Itching 2014-07 STOMACH Unive rs ty to 0-19 gi ity of adverse 00:00: ISSUESOth [place] reaction er Medical s reaction( Branch s): Vomiting Levaquin Levaquin Active [facility] [place] NSAIDs NSAIDs Active [facility] [place] codeine codeine Active [facility] [place] ibuprofe ibuprofe Active Memori a n n l [place] Social History Social Habit Start Date Stop Date Quantity Comments Source Exposure to 2021-12-19 2021-12-29 Not sure [facility] SARS-CoV-2 (event) 00:00:00 11:27:00 Medica l Branch Alcohol intake 2021-11-24 2021-11-24 0 /d [facility] 00:00:00 00:00:00 Medical Branch Sex Ass[birth year] [facility] [place] 00:00:00 00:00:00 Medical Branch Smoking Status Start Date Stop Date Source Never smoker [facility] Medical Branch Medications Ordered Filled Start Stop Current Ordering Indication Dosage Frequency Signature Comments Components Source Medication Medication Date Date Medication? Clinician (SIG) Name Name triamcinolo 2021- No [id number] 40mg [facility] 12-29 9100 ity of acetonide 17:45: 16:39 [place] (KENALOG) 00 :00 Medical injection Branch 40 mg triamcinolo 2021- No [id number] 40mg 40 mg, Univers ne 12-29 06-09 9100 Intramuscu ity of acetonide 17:45: 16:39 lar, ONCE, [place] (KENALOG) 00 :00 1 dose, On Medi daniel injection Jazmyne 12/29/21 Bran ch 40 mg at 1245, Routine methylPREDN 2021-0 Yes [id number] 84mg Take 21 Univers ISolone 3-01 tablets by ity of (MEDROL, 00:00: mouth [place] RADHA,) 4 mg 00 SEE-INSTRU Med ical tablets CTIONS. Branch follow package directions methylPREDN 2021-0 Yes [id number] 84mg Take 21 Univers ISolone 3-01 tablets by ity of (MEDROL, 00:00: mouth [place] RADHA,) 4 mg 00 SEE-INSTRU Med ical tablets CTIONS. Branch follow package directions methylPREDN 2021-0 Yes [id number] 84mg Take 21 Univers ISolone 2-14 tablets by ity of (MEDROL, 00:00: mouth [place] RADHA,) 4 mg 00 SEE-INSTRU Med ical tablets CTIONS. Branch follow package directions methylPREDN 2021-0 Yes [id number] 84mg Take 21 Univers ISolone 2-14 tablets by ity of (MEDROL, 00:00: mouth [place] RADHA,) 4 mg 00 SEE-INSTRU Med ical tablets CTIONS. Branch follow package directions estradioL 2020-07 Yes INSERT 0.5 Un herman 0.01 % (0.1 2-16 GRAM(S) IN it y of mg/gram) 00:00: VAGINA [place] vaginal 00 THREE Medical cream TIMES Branch WEEKLY. estradioL 2020-07 Yes INSERT 0.5 Un herman 0.01 % (0.1 2-16 GRAM(S) IN it y of mg/gram) 00:00: VAGINA [place] vaginal 00 THREE Medical cream TIMES Branch WEEKLY. carisoprodo Yes 350mg Take 350 U nivers l (SOMA) 9-09 mg by ity of 350 mg 14:16: mouth 4 [place] tablet 28 (four) Medical times Branch daily. rosuvastati Yes 20mg Take 20 mg Univers n (CRESTOR) 9-09 by mouth ity of 20 mg 14:16: at [place] tablet 28 bedtime. Medical Branch zolpidem Yes 10mg Take 10 mg Uni vers (AMBIEN) 10 03-31 by mouth ity of mg tablet 14:16: at bedtime [place] 28 as needed Medical for Branch Insomnia. Tramadol Yes Take by Unive rs (RYBIX ODT) 9- mouth. ity of 50 mg TbDL 14:16: [place] [address] Medical Branch omeprazole Yes 20mg Take 20 mg U nivers (PRILOSEC) 03-31 by mouth ity o f 20 mg 14:16: daily. [place] [address] Medical Branch carisoprodo Yes 350mg Take 350 U nivers l (SOMA) 03-31 mg by ity of 350 mg 14:16: mouth 4 [place] tablet 28 (four) Medical times Branch daily. rosuvastati Yes 20mg Take 20 mg Univers n (CRESTOR) 03-31 by mouth ity of 20 mg 14:16: at [place] tablet 28 bedtime. Medical Branch zolpidem Yes 10mg Take 10 mg Uni vers (AMBIEN) 10 03-31 by mouth ity of mg tablet 14:16: at [place]time [place] 28 as needed Medical for Branch Insomnia. Tramadol Yes Take by [employer] rs (RYBIX ODT) 9-09 mouth. ity of 50 mg TbDL 14:16: [place] [address] Medical Branch omeprazole Yes 20mg Take 20 mg U nivers (PRILOSEC) 03-31 by mouth ity o f 20 mg 14:16: daily. [place] [address] Medical Branch Diclofenac Yes [id number] Apply 2mg Univers Sodium 7-29 - 4mg to ity of (VOLTAREN) 00:00: affected [place] 1 % gel 00 area four Medical times Branch daily Diclofenac Yes [id number] Apply 2mg Univers Sodium 7-29 - 4mg to ity of (VOLTAREN) 00:00: affected [place] 1 % gel 00 [facility] four Medical times Branch daily Sulfamethox 2017-07 No 1 tab, PO, Memoria azole 800 2-06 BID, X 14 l MG / 22:04: day, # 28 [place] Trimethopri 00 tab, 0 m 160 MG Refill(s), Oral Tablet Pharmacy: [Bactrim] [facility] [place] Sulfamethox 2017-07 No 1 tab, PO, Memoria azole 800 2-06 BID, X 14 l MG / 22:04: day, # 28 [place] Trimethopri 00 tab, 0 m 160 MG Refill(s), Oral [facility] Sulf[facility] 2017-07 No 1 tab, PO, Memoria azole 800 2-06 BID, X 14 l MG / 22:04: day, # 28 [place] Trimethopri 00 tab, 0 m 160 MG Refill(s), [facility] [place] Sulfamethox 2017-07 No 1 tab, PO, Memoria azole 800 2-06 BID, X 14 l MG / 22:04: day, # 28 [place] Trimethopri 00 tab, 0 m 160 MG Refill(s), Oral Tablet Pharmacy: [[facility] Sulfamethox 2017-07 No 1 tab, PO, Memoria azole 800 2-06 BID, X 14 l MG / 22:04: day, # 28 [place] Trimethopri 00 tab, 0 m 160 MG Refill(s), Oral [facility] [place] Prilosec 2017-07 Yes PO, Daily, Mem oria 2-06 0 l 21:55: Refill(s) Ambien 2017-07 Yes PO, Memoria 2-06 Bedtime, 0 l 21:55: Refill(s) Soma 2017-07 Yes PO, QID, 0 Memoria 206 Refill(s) l 21:55: Tramadol 2017-07 Yes 50 mg, PO, Mem oria 2-06 Q4-6H, PRN l 21:55: Pain, # 20 tab, 0 Refill(s) Prilosec 2017-07 Yes PO, Daily, Mem oria 2-06 0 l 21:55: Refill(s) Ambien 2017-07 Yes PO, Memoria 2-06 Bedtime, 0 l 21:55: Refill(s) Soma 2017-07 Yes PO, QID, 0 Memoria 2-06 Refill(s) l 21:55: Tramadol 2017-07 Yes 50 mg, PO, Mem oria 2-06 Q4-6H, PRN l 21:55: Pain, # 20 [place] 00 tab, 0 Refill(s) Prilosec 2017-07 Yes PO, Daily, Mem oria 2-06 0 l 21:55: Refill(s) Ambien 2017-07 Yes PO, Memoria 2-06 Bedtime, 0 l 21:55: Refill(s) Soma 2017-07 Yes PO, QID, 0 Memoria 2-06 Refill(s) l 21:55: [place] 00 Tramadol 2017-07 Yes 50 mg, PO, Mem oria 2-06 Q4-6H, PRN l 21:55: Pain, # 20 [place] 00 tab, 0 Refill(s) Prilosec 2017-07 Yes PO, Daily, Mem oria 2-06 0 l 21:55: Refill(s) Ambien 2017-07 Yes PO, Memoria 2-06 Bedtime, 0 l 21:55: Refill(s) Soma 2017-07 Yes PO, QID, 0 Memoria 2-06 Refill(s) l 21:55: [place] 00 Tramadol 2017-07 Yes 50 mg, PO, Mem oria 2-06 Q4-6H, PRN l 21:55: Pain, # 20 [place] 00 tab, 0 Refill(s) Prilosec 2017-07 Yes PO, Daily, Mem oria 2-06 0 l 21:55: Refill(s) Ambien 2017-07 Yes PO, Memoria 2-06 Bedtime, 0 l 21:55: Refill(s) Soma 2017-07 Yes PO, QID, 0 Memoria 2-06 Refill(s) l 21:55: Tramadol 2017-07 Yes 50 mg, PO, Mem oria 2-06 Q4-6H, PRN l 21:55: Pain, # 20 tab, 0 Refill(s) ADVAIR 2015-07 Yes Univers DISKUS 1-11 ity of 100-50 00:00: [place] mcg/dose 00 Medical inhalation Branch disk ADVAIR 2015-07 Yes Univers DISKUS 1-11 ity of 100-50 00:00: [place] mcg/dose 00 Medical inhalation Branch disk PREMARIN 2015-07 Yes Univers 0.625 0-25 ity of mg/gram 00:00: [place] cream 00 Medical Branch PREMARIN 2015-1 Yes Univers 0.625 0-25 ity of mg/gram 00:00: [place] cream 00 Medical Branch OSPHENA 60 2016-0 Yes Univers mg tablet 9-12 ity of 00:00: [place] 00 Medical Branch OSPHENA 60 2016-0 Yes Univers mg tablet 9-12 ity of 00:00: [place] 00 Medical Branch lidocaine 5 2015-0 Yes Univer s % ointment 8-16 ity of 00:00: [place] 00 Medical Branch lidocaine 5 2015-0 Yes Univer s % ointment 8-16 ity of 00:00: [place] 00 Medical Branch Immunizations Ordered Filled Immunization Date Status Comments Sourc e Immunization Name Name SARS-COV-2 COVID-19 2020-10-13 Completed Unive rsity of PFIZER VACCINE 00:00:00 [facility] SARS-COV-2 COVID-19 2020-10-13 Completed Unive rsity of PFIZER VACCINE 00:00:00 [facility] SARS-COV-2 COVID-19 2020-09-14 Completed Unive rsity of PFIZER VACCINE 00:00:00 [facility] SARS-COV-2 COVID-19 2020-09-14 Completed Unive rsity of PFIZER VACCINE 00:00:00 [facility] Vital Signs Vital Name Observation Time Observation Value Comments Source Body weight 2021-12-29 16:33:00 68.04 kg [facility] BMI 2021-12-29 16:33:00 24.96 kg/m2 [facility] Height 2018-06-27 21:54:00 165.1 cm [facility] Weight 2018-06-27 21:54:00 [facility] BMI Calculated 2018-06-27 21:54:00 Gianna al [place] Heart Rate 2018-06-27 21:54:00 [facility] Temperature Oral (F) 2018-06-27 21:54:00 97.9 F [facility] Systolic (mm Hg) 2018-06-27 21:54:00 Alan valencia [place] Diastolic (mm Hg) 2018-06-27 21:54:00 Mem orial [place] Procedures Procedure Date / Time Performed Performing Clinician Sourc e PHYSICIAN ORDERS 2021-12-22 05:01:00 Doctor Unassigned, [facility] Branch Cholecystectomy [facility] [place] [facility] Hip joint operations [facility] Encounters Start End Encounter Admission Attending Care Care Encounter Source Date/Time Date/Time Type Type Clinicians Facility Department ID 2021-12-29 2021-12-29 Office Philippe Ramos [facility] [id number] [facility] 11:15:00 11:48:18 Visit Christian Gregory [facility] [id number] ity of [place] [id number] [place] NASIM?BLEA [id number] [address] MEDICAL OFFICE BUILDING 2021-12-22 2021-12-22 Orders Doctor MITZI [id number] [facility] 00:00:00 00:00:00 Only Unassigned, JASIEL [id number] ity of [place] [facility] [id number] [place] [id number] [address] 2021-12-15 2021-12-15 Outpatient [facility] [id number] [place] 00:00:00 00:00:00 ANTONELLA 206 [facility] i 2021-10-26 2021-10-26 Outpatient [facility] [id number] [place] 00:00:00 00:00:00 SARAH 767 [facility] 2021-10-05 2021-10-05 Outpatient [facility] [id number] [place] 00:00:00 00:00:00 SARAH 975 [facility] i 2021-06-08 2021-06-08 Outpatient [facility] [id number] [place] 00:00:00 00:00:00 SARAH 663 [facility] i 2021-04-01 2021-04-01 Outpatient [facility] [id number] [place] 00:00:00 00:00:00 ANTONELLA 217 [facility] i 2021-01-26 2021-01-26 [facility] [id number] [place] 00:00:00 00:00:00 SARAH 142 [facility] i 2020-12-09 2020-12-09 Outpatient VRABEC, [facility] [id number] [place] 00:00:00 00:00:00 ANTHONY [address] 2020-12-09 2020-12-09 Outpatient VRABEC, [facility] [id number] [place] 00:00:00 00:00:00 ANTHONY [address] 2020-11-23 2020-11-23 Outpatient SLIM CHOI [facility] [id number] [place] 00:00:00 00:00:[address] 2020-11-23 2020-11-23 Outpatient [facility] [id number] [place] 00:00:00 00:00:[address] 2020-09-22 2020-09-22 Outpatient THONHOFF, [facility] [id number] [place] 00:00:00 00:00:00 SARAH 032 Method i 2020-09-03 2020-09-03 Outpatient DINORALAKEISHA BurnettG [facility] [id number] [place] 00:00:00 00:00:00 254 Method i 2020-05-12 2020-05-12 Outpatient THONHOFF, [facility] [id number] [place] 00:00:00 00:00:00 SARAH 504 Method i 2020-05-05 2020-05-05 [facility] [id number] 14:02:44 15:17:46 Visit [facility] [id number] Surgical [id number] Specialti [id number] es [address] [place] 2020-01-02 2020-01-02 Outpatient RADHAMES, [facility] [id number] [place] 00:00:00 00:00:00 RASHIDA [address] 2019-12-24 2019-12-24 Outpatient THONHOFF, [facility] [id number] [place] 00:00:00 00:00:00 SARAH 589 Method i 2019-08-13 2019-08-13 Outpatient THONHOFF, [facility] [id number] [place] 00:00:00 00:00:00 SARAH [address] 2018-06-27 2018-06-28 Outpatient [facility] [id number] Memoria 21:45:00 05:59:59 r Care Clear 00 l Cho [place] Results This patient has no known results.
--- NOTE | 2022-01-07 15:09 | RAD REPORT ---
EXAM DESCRIPTION: CT - Head Brain Wo Cont - 01/07/2022 2:56 pm CLINICAL HISTORY: Neuro deficit, acute, stroke suspected Headache, drowsiness, CVA symptomology COMPARISON: <Comparisons> TECHNIQUE: All CT scans are performed using dose optimization technique as appropriate and may inclu de automated exposure control or mA/KV adjustment according to patient size. FINDINGS: No intracranial hemorrhage, hydrocephalus or extra-axial fluid collection.No areas of brai n edema or evidence of midline shift. The paranasal sinuses and mastoids are clear. The calvarium is intact. IMPRESSION: No acute intracranial abnormality.
[2022-01-07 16:09] LABS: Absolute Lymphocytes (CBC) 2.2 K/uL (0.7-4.9); Hematocrit 38.5 % (36.0-45.0); Lymphocytes % 32.9 % (15.3-44.8); MPV 8.4 fL (7.6-11.3); RBC Red Blood Cell Count 4.02 M/uL (3.86-4.86)
[2022-01-07 16:17] LABS: Protime INR 0.99
--- NOTE | 2022-01-07 16:22 | RAD REPORT ---
EXAM DESCRIPTION: RAD - Chest Single View - 01/07/2022 4:06 pm CLINICAL HISTORY: CONGESTION Chest pain. COMPARISON: Chest Single View dated 01/09/2020; Chest Single View dated 10/28/2017; Chest Single View d ated 04/04/2016; CHEST SINGLE VIEW dated 06/22/2015 FINDINGS: Portable technique limits examination quality. The lungs are grossly clear. The heart is normal in size. No displaced fractures. IMPRESSION: No acute intrathoracic process suspected.
[2022-01-07 16:23] LABS: Potassium 3.7 mmol/L (3.5-5.1)
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
[2022-01-07] MEDS ORDERED: NA CHLORIDE 0.9% 1,000 ML ONE (17:17)
[2022-01-07] MEDS ORDERED: LORazepam 2 MG/ML VIAL ONE (17:17)
[2022-01-07 18:41] VITALS: O2SAT 98
[2022-01-07 18:43] VITALS: BP 128/91; TEMP 98
== END 2022-01-07 18:34 | disposition home or self-care (01) ==
LOC: ER 14:19
DX: R53.1 Weakness (principal); Z88.6 Allergy status to analgesic agent; F41.9 Anxiety disorder, unspecified; J45.909 Unspecified asthma, uncomplicated; I48.91 Unspecified atrial fibrillation
CPT/HCPCS: 85025; 80048; 36415; 85610; 85730; 70450; 71045; 99284; J7030